=== PATIENT | female | born 1955 | race Caucasian/White ===

== ENCOUNTER 2016-12-18 07:05 | Inpatient (IN) | payer BC ==
[2016-12-18] MEDS ORDERED: Ondansetron HCl/PF 4 MG/2 ML Vial ONE (07:36)
[2016-12-18 07:56] LABS: #Lymphocytes 0.6 thou/uL (1.20-3.40); #Monocytes 0.3 thou/uL (0.11-0.59); #Neutrophils 3.2 thou/uL (1.40-6.50); %Basophils 0.4 % (0.0-1.0); %Eosinophils 0.2 % (0.0-10.0); %Lymphocytes 14.6 % (21.0-51.0); %Monocytes 7.1 % (0.0-10.0); Hematocrit 27.5 % (36.0-47.0); Mean Platelet Volume 8.7 fL (7.4-10.4); Red Blood Cell (RBC) Count 2.47 mill/uL (4.20-5.40); White Blood Cell (WBC) Count 4.1 thou/uL (4.8-10.8)
[2016-12-18 07:57] LABS: Macrocytosis SLIGHT = 6-15 cells (100X) (0-5/hpf)
[2016-12-18 08:12] LABS: Acetaminophen Less than 6.0 mcg/mL (10.0-30.0); Salicylate Less than 8.0 mg/dL (15.0-30.0)
[2016-12-18 08:16] LABS: ALT (SGPT) 26 U/L (8-55); AST (SGOT) 67 U/L (5-34); Alkaline Phosphatase 169 U/L (40-150); Anion Gap 30 mmol/L (10-20); BUN (Urea Nitrogen) 14 mg/dL (9.8-20.1); Bilirubin, Total 2.5 mg/dL (0.2-1.2); CK (CPK) 112 U/L (29-168); Calc. Creatinine Clearance 0 mL/min (70-130); Calcium 9.3 mg/dL (7.8-10.44); Carbon Dioxide 10 mmol/L (23-31); Chloride 102 mmol/L (98-107); Estimated GFR-MDRD 50; Globulin 3.5 g/dL (2.4-3.5); Lipase 158 U/L (8-78); Protein, Total 7.9 g/dL (6.0-8.3)
[2016-12-18 08:25] LABS: Troponin I 0.157 ng/mL (< 0.028)
[2016-12-18 08:37] LABS: Bilirubin Large (Negative); Glucose, Urine (Dipstick) Negative (Negative)
[2016-12-18 08:39] LABS: Blood, Urine Trace (Negative); Nitrite Negative (Negative); Protein, Urine (Dipstick) > or equal to 300 mg/dL (Neg-Trace)
[2016-12-18 08:40] LABS: Ketone, Urine > or equal to 80 mg/dL (Negative)
[2016-12-18] MEDS ORDERED: Magnesium Sulfate 2 GM/100 ML BAG ONE (08:53)
[2016-12-18] MEDS ORDERED: Lorazepam 2 MG/ML VIAL ONE (08:53)
--- NOTE | 2016-12-18 08:53 | RAD ---
PORTABLE CHEST ONE VIEW: 12/18/2016 7:38 a.m. HISTORY: Nausea, vomiting, and shortness of breath. COMPARISON: 01/20/2012 FINDINGS: The heart size is normal. The aorta is tortuous. The lungs are well expanded without focal areas o f consolidation, pneumothorax, or pleural effusions. There are postop changes in the left shoulder. IMPRESSION: No radiographic evidence of acute cardiopulmonary process. POS: OFF
[2016-12-18] MEDS ORDERED: Sodium Chloride 0.65% Nasal 44 ML BOT EA NARE PRN (10:07)
[2016-12-18] MEDS ORDERED: Ondansetron HCl/PF 4 MG/2 ML Vial IVP PRN (10:07)
[2016-12-18] MEDS ORDERED: Artificial Tears 18 DROP/0.9 ML EA EYE PRN (10:07)
[2016-12-18] MEDS ORDERED: Eucerin (Mineral Oil/Petrolatum,White) 30 gm Jar TOP PRN (10:07)
[2016-12-18] MEDS ORDERED: Bisacodyl 10 MG SUPP PR PRN ×2 (10:07)
[2016-12-18] MEDS ORDERED: Nitroglycerin 0.4 MG TAB (25 Tab Bottle) SL PRN (10:07)
[2016-12-18] MEDS ORDERED: Promethazine HCl 25 MG/ML VIAL IM/IV PRN (10:13)
[2016-12-18] MEDS ORDERED: Multivit, Adult Inj 10 ML VIAL IV SCH (10:15)
[2016-12-18] MEDS ORDERED: KCL IV SCH (11:15)
[2016-12-18] MEDS ORDERED: D5 IV SCH (11:15)
[2016-12-18] MEDS ORDERED: SODIUM BICARBONATE IV SCH (11:15)
[2016-12-18] MEDS ORDERED: 1/2 NS W IV SCH (11:15)
[2016-12-18] MEDS ORDERED: Multivitamins, Adult 10 ML in Sodium Chloride 0.9% 500 ML IV SCH ×2 (11:30)
--- NOTE | 2016-12-18 11:37 | HP ---
PRIMARY CARE PHYSICIAN: Dr. Wagner. REASON FOR ADMISSION: Intractable nausea and vomiting, metabolic acidosis, severe dehydration. HISTORY OF PRESENT ILLNESS: A 61-year-old female with a history of hypertension as well as anxiety and depression, who came to the emergency room with complaint of nausea and vomiting. At this point, patient is very weak. The patient is not able to provide any history, because of her sickness. The patient's family member is present at bedside who provided history. As per them , she has not eaten or drank anything for the last 5 days. She was having persistent nausea and vomiting. She was not able to keep anything including medication and liquid. She did not have any hematemesis. As per report, she was not having any melena or hematochezia or diarrhea. She was not having any abdominal pain. She did not have any fever or chills. The patient had similar problem in the past and the patient recently seen a primary care physician who given Zofran 4 mg. Patient started taking those medications day before yesterday. Even after taking Zocor, the patient was not feeling any improvement. She was feeling very dizzy and lightheaded. Last night, she was about to fell because of dizziness as she was not able to stand even and she was feeling more and more weak. She is passing gas. She denies any abdominal distension. She denies any UTI symptoms. She denies any headaches. The patient does report that she is taking some anxiety medicine, but she was not able to hold any medication and that is why for the last couple of days, she was not taking as well. With these presentations, she came to the emergency room. When she came to the emergency room, she was tachycardic. She was breathing heavily and she appeared clinically significantly dehydrated. Patient's family member reports that she was alcoholic in the past, but she is no longer drinking alcohol since March. The patient is also not taking any NSAIDs. The patient is also not taking any new medication. REVIEW OF SYSTEMS: The following complete review of systems was negative, unless otherwise mentioned in the HPI or below: Constitutional: Weight loss or gain, ability to conduct usual activities. Skin: Rash, itching. Eyes: Double vision, pain. ENT/Mouth: Nose bleeding, neck stiffness, pain, tenderness. Cardiovascular: Palpitations, dyspnea on exertion, orthopnea. Respiratory: Shortness of breath, wheezing, cough, hemoptysis, fever or night sweats. Gastrointestinal: Poor appetite, abdominal pain, heartburn, nausea, vomiting, constipation, or diarrhea. Genitourinary: Urgency, frequency, dysuria, nocturia. Musculoskeletal: Pain, swelling. Neurologic/Psychiatric: Anxiety, depression. Allergy/Immunologic: Skin rash, bleeding tendency. Please see my HPI for pertinent positives and negatives. All other review of systems reviewed and negative except as mentioned in the HPI. Review of system is little bit limited, because of patient's sickness. PAST MEDICAL HISTORY: History of alcoholism, but she is clean since March of this year, hypertension. PAST SURGICAL HISTORY: Left ankle surgery, D\T\C, hysteroscopy in 2011. PAST PSYCHIATRIC HISTORY: Anxiety and depression. SOCIAL HISTORY: Patient has a history of alcoholism in the past, but per family and per patient, she is sober since March of this year and she is a recovering alcoholic. She denies any illicit drug abuse. She denies any smoking. At this point, family member also has suspicious that she may be drinking alcohol behind the scene, but it is not proven. FAMILY HISTORY: No strong family history of CAD, CVA or cancer. ALLERGIES: No known drug allergy. CURRENT HOME MEDICATIONS: The patient is taking some anxiety medicine. The patient did not bring any medications, so unable to review at this point and patient is not able to tell the name of medication. EMERGENCY ROOM COURSE: Patient is given magnesium sulfate 2 gram, aspirin 162 mg, Ativan 1 mg IV push, IV fluid and Zofran 4 mg. PHYSICAL EXAMINATION: VITAL SIGNS: On arrival, blood pressure 119/92, pulse 120, respiratory rate 19 , temperature 98.0, saturation 96% on room air, weight 68 kilograms. GENERAL: Patient is currently arousable, appears dehydrated, weak and tachycardic. HEAD: Normocephalic, atraumatic. EYES: Pupils round, reactive to light. Extraocular muscles intact. ENT: Dry mucous membranes, no oral lesions, no pharyngeal erythema, no exudate. NECK: Supple. Range of motion is normal. No meningeal signs of irritation. LUNGS: Clear to auscultation without any rhonchi or rales. CARDIAC: S1, S2 regular, tachycardia, no murmur, no gallop, no rub. ABDOMEN: Soft, diffuse, discomfort noted, but no peritoneal sign, no guarding, no rigidity, no rebound, no suprapubic tenderness. BACK: Unremarkable, no CVA tenderness. EXTREMITIES: Upper extremity: Passive movement of all joints are normal. Lower extremity: No edema. Good peripheral pulsation. SKIN: No skin rash. HEMATOLOGICAL: No lymphadenopathy. PSYCHIATRIC: Anxious affect. NEUROLOGIC: Patient has tremors. The patient is not having any focal neurological deficit. SIGNIFICANT LABORATORY DATA AND IMAGING: EKG showing sinus tachycardia, nonspecific ST-T changes. Chest x-ray based on my review, no acute cardiopulmonary process. CBC: WBC 4.1, hemoglobin 8.9, MCV 111, platelets 132. BMP: Sodium 138, potassium 3.6, chloride 102, carbon dioxide 10, anion gap 30, BUN 14, creatinine 1.10, glucose 136, calcium 9.3, magnesium 1.0. LFT: Bilirubin 2.5, AST 67, ALT 26, alkaline phosphatase 169, albumin 4.4, lipase 158, CK-MB 7.2, troponin I 0.157. Urinalysis showing proteinuria, ketonuria, nitrite negative, leukocyte esterase negative. Salicylate level less than 8. Acetaminophen level less than 6. Alcohol level less than 10. ASSESSMENT AND PLAN: 1. Intractable nausea and vomiting, etiology uncertain, but underlying gastritis needs to be excluded. At this point, I will treat her symptomatically with Zofran, Phenergan, and Protonix. If the patient's symptoms does not improve by tomorrow, then we will consider Gastroenterology evaluation for endoscopic evaluation. 2. Severe dehydration. Patient clinically appears dehydrated secondary to not able to eat anything for the last 4-5 days, because of nausea and vomiting. The patient will be given IV fluid along with bicarbonate and potassium and we will monitor electrolytes. 3. Starvation ketoacidosis. We will check serum ketones. This patient has elevated anion gap acidosis. Most likely because of that, the patient will be given dextrose solution, so her ketones can get better and we will repeat BMP tomorrow. 4. Benzodiazepines/alcohol withdrawal. It is unclear at this point, but patient has tremor. She is tachycardic. She is hypertensive. She may be withdrawing from benzos versus alcohol if she is still drinking. At this point , we will continue with Ativan 1 mg q.4 hours p.r.n. IV and we will watch on telemetry floor. 5. Elevated anion gap metabolic acidosis. We will check a lactic acid. We will check serum ketones. The patient will be given dextrose half-normal saline with KCl along with bicarbonate and we will monitor BMP. 6. Hypomagnesemia. Patient has received magnesium 2 grams in the emergency room. We will recheck labs later on today and if needed, we will give her more magnesium. We will also check phosphorus at that time. 7. Elevated lipase, along with abnormal LFT. We will check ultrasound abdomen in the right upper quadrant to rule out any gallbladder pathology or pancreatic pathology. We will repeat lipase again tomorrow. Most likely, this is related with her previous alcohol abuse history as well as nausea and vomiting. 8. Macrocytic anemia. I will give her multivitamin IV daily and when patient able to take p.o., at that time, we will resume folic acid, vitamin B12, and thiamine. We will check B12 and folate level later on today. 9. Elevated troponin. We will do 3 sets of cardiac enzymes to rule out acute coronary syndrome. Most likely, this is demand ischemia. 10. Proteinuria, ketonuria, likely due to starvation ketoacidosis. 11. Deep venous thrombosis prophylaxis. Lovenox 40 mg subcu daily. 12. Gastrointestinal prophylaxis. Protonix 40 mg IV daily. 13. CODE STATUS: The patient is FULL CODE. Patient does not have any surrogate decision maker. Disposition and plan based on clinical course. We are expecting patient's stay in hospital more than 2 midnights. Plan of care discussed with the patient's family member at bedside in the emergency room. TIM
[2016-12-18 12:20] VITALS: BMI 29.4
[2016-12-18 13:30] LABS: Troponin I 0.131 ng/mL (< 0.028)
[2016-12-18 13:57] LABS: Troponin I 0.134 ng/mL (< 0.028)
--- NOTE | 2016-12-18 15:12 | ULT ---
RIGHT UPPER QUADRANT ULTRASOUND 12/18/2016 HISTORY: Abnormal liver function tests. FINDINGS: The liver is enlarged measuring 20 cm in craniocaudal dimensions. The liver also demonstrates incre ased echogenicity likely related to diffuse fatty infiltrates. This limits evaluation of the hepati c parenchyma, but no focal hepatic mass is visualized. There are shadowing echogenic foci seen within the gallbladder lumen consistent with gallbladder elvia culi. There is no gallbladder wall thickening or pericholecystic fluid. The common duct measures 0. 7 cm in diameter which is within normal limits for the patient's age. No intrahepatic biliary ducta l dilatation is seen. The visualized portions of the IVC, visualized portions of the pancreas, and right kidney demonstrat e a normal sonographic appearance. The right kidney measures 11.6 cm in length. IMPRESSION: 1. Hepatomegaly with diffuse fatty infiltration of the liver. 2. Cholelithiasis. POS: [facility]
[2016-12-18 15:38] LABS: Anion Gap 29 mmol/L (10-20); BUN (Urea Nitrogen) 14 mg/dL (9.8-20.1); Calc. Creatinine Clearance 74 mL/min (70-130); Calcium 8.9 mg/dL (7.8-10.44); Chloride 108 mmol/L (98-107); Estimated GFR-MDRD 59; Magnesium 1.5 mg/dL (1.6-2.6)
[2016-12-18 15:45] LABS: Carbon Dioxide 9 mmol/L (23-31); Phosphorus Less than 1.0 mg/dL (2.3-4.7); Troponin I 0.112 ng/mL (< 0.028)
[2016-12-18] MEDS ORDERED: Potassium Chloride 20 MEQ in Lactated Ringer's 1,000 ML IV SCH (16:00)
[2016-12-18] MEDS ORDERED: Magnesium Sulfate 4 GM in Sodium Chloride 0.9% 250 ML 250 ML IVPB SCH (17:00)
[2016-12-18] MEDS ORDERED: Potassium Phosphate 30 MMOL in Sodium Chloride 0.9% 500 ML IVPB SCH (17:00)
[2016-12-18] MEDS ORDERED: Sodium Bicarb 50 MEQ/50 ML Abboject 8.4% SYRINGE IVP SCH (17:45)
[2016-12-18] MEDS: SODIUM BICARBONATE IV SCH (17:56)
[2016-12-18] MEDS: [UNRECOGNIZED DRUG - OTHER] IV SCH (17:56)
[2016-12-18] MEDS: POTASSIUM CHLORIDE IV SCH (17:56)
[2016-12-18 18:36] LABS: Troponin I 0.105 ng/mL (< 0.028)
[2016-12-18] MEDS ORDERED: Sodium Bicarb 50 MEQ/50 ML VIAL IVP SCH (18:45)
[2016-12-18 19:01] LABS: Oxyhemoglobin 94.9 % (94.0-97.0); Sodium 141 mmol/L (135-148)
[2016-12-18 20:15] LABS: Mode RA; Modified Allen's Test POSITIVE; Vent NO
[2016-12-18 21:23] LABS: Anion Gap 27 mmol/L (10-20); BUN (Urea Nitrogen) 14 mg/dL (9.8-20.1); Calc. Creatinine Clearance 81 mL/min (70-130); Calcium 8.5 mg/dL (7.8-10.44); Carbon Dioxide 11 mmol/L (23-31); Chloride 108 mmol/L (98-107); Estimated GFR-MDRD 66; Magnesium 1.8 mg/dL (1.6-2.6)
[2016-12-18 21:27] LABS: Phosphorus Less than 1.0 mg/dL (2.3-4.7)
[2016-12-18] MEDS: Pantoprazole 40 MG VIAL IVP SCH (21:59)
[2016-12-18] MEDS: Lorazepam 2 MG/ML VIAL SLOW IVP PRN (21:59)
[2016-12-19] MEDS: [UNRECOGNIZED DRUG - OTHER] IV SCH ×6 (02:43→23:58)
[2016-12-19] MEDS: SODIUM BICARBONATE IV SCH ×6 (02:43→23:58)
[2016-12-19] MEDS: POTASSIUM CHLORIDE IV SCH ×6 (02:43→23:58)
[2016-12-19 06:06] LABS: #Lymphocytes 0.5 thou/uL (1.20-3.40); #Monocytes 0.3 thou/uL (0.11-0.59); #Neutrophils 1.7 thou/uL (1.40-6.50); %Basophils 0.4 % (0.0-1.0); %Eosinophils 1.3 % (0.0-10.0); %Lymphocytes 20.9 % (21.0-51.0); %Monocytes 9.8 % (0.0-10.0); Hematocrit 20.1 % (36.0-47.0); Mean Platelet Volume 8.7 fL (7.4-10.4); Red Blood Cell (RBC) Count 1.81 mill/uL (4.20-5.40); White Blood Cell (WBC) Count 2.6 thou/uL (4.8-10.8)
[2016-12-19 06:14] LABS: ALT (SGPT) 19 U/L (8-55); AST (SGOT) 55 U/L (5-34); Alkaline Phosphatase 128 U/L (40-150); Anion Gap 16 mmol/L (10-20); BUN (Urea Nitrogen) 12 mg/dL (9.8-20.1); Bilirubin, Total 1.6 mg/dL (0.2-1.2); Calc. Creatinine Clearance 89 mL/min (70-130); Carbon Dioxide 21 mmol/L (23-31); Chloride 108 mmol/L (98-107); Estimated GFR-MDRD 74; Globulin 2.5 g/dL (2.4-3.5); Magnesium 1.9 mg/dL (1.6-2.6); Phosphorus Less than 1.0 mg/dL (2.3-4.7); Protein, Total 5.9 g/dL (6.0-8.3)
[2016-12-19] MEDS ORDERED: Potassium Phosphate 15 MMOL in Sodium Chloride 0.9% 250 ML 250 ML IVPB SCH (07:00)
--- NOTE | 2016-12-19 09:32 | PDOC.PN ---
- Subjective Encounter Start Date: 12/19/16 Encounter Start Time: 07:00 -: old records requested/rev pt's family reports that pt is drinking vodka at home, they found empty bottles of vodka, no fever, feels anxious, no nausea or vomiting, no melena - Objective Resuscitation Status: Resuscitation Status FULL:Full Resuscitation MAR Reviewed: Yes Vital Signs & Weight: Vital Signs (12 hours) Temp Pulse Pulse Resp BP BP Pulse Ox 12/19/16 09:17 99.0 F 118 H 24 H 115/59 L 12/19/16 07:20 99.0 F 129 H 24 H 138/71 92 L 12/19/16 04:00 122 H 18 138/60 94 L 12/19/16 00:00 99.1 F 118 H 18 136/75 96 Weight Weight 171 lb 5 oz I&O: 12/18/16 12/19/16 12/20/16 06:59 06:59 06:59 Intake Total 2920 0 Output Total 500 Balance 2420 0 Result Diagrams: 12/19/16 05:13 12/19/16 05:13 EKG Reviewed by me: Yes (sinus tachycardia) Phys Exam - Physical Examination Constitutional: NAD HEENT: PERRLA, moist MMs, sclera anicteric Neck: no JVD, supple Respiratory: no wheezing, no rales, no rhonchi Cardiovascular: RRR, no significant murmur, no rub tachycardia Gastrointestinal: soft, non-tender, no distention, positive bowel sounds Musculoskeletal: no edema, pulses present wrist swelling Neurological: non-focal, normal sensation, moves all 4 limbs Lymphatic: no nodes Psychiatric: normal affect, A&O x 3 Skin: no rash, normal turgor Dx/Plan (1) Acute metabolic encephalopathy Code(s): G93.41 - METABOLIC ENCEPHALOPATHY Status: Acute (2) Alcohol abuse Code(s): F10.10 - ALCOHOL ABUSE, UNCOMPLICATED Status: Acute (3) Dehydration Code(s): E86.0 - DEHYDRATION Status: Acute (4) Demand ischemia of myocardium Code(s): I24.8 - OTHER FORMS OF ACUTE ISCHEMIC HEART DISEASE Status: Acute (5) Hypokalemia Code(s): E87.6 - HYPOKALEMIA Status: Acute (6) Hypomagnesemia Code(s): E83.42 - HYPOMAGNESEMIA Status: Acute (7) Hypophosphatemia Code(s): E83.39 - OTHER DISORDERS OF PHOSPHORUS METABOLISM Status: Acute (8) Intractable nausea and vomiting Code(s): R11.2 - NAUSEA WITH VOMITING, UNSPECIFIED Status: Acute (9) Ketosis Code(s): E88.89 - OTHER SPECIFIED METABOLIC DISORDERS Status: Acute (10) Macrocytic anemia Code(s): D53.9 - NUTRITIONAL ANEMIA, UNSPECIFIED Status: Acute (11) Metabolic acidosis, increased anion gap (IAG) Code(s): E87.2 - ACIDOSIS Status: Acute (12) Sinus tachycardia Code(s): R00.0 - TACHYCARDIA, UNSPECIFIED Status: Acute (13) Thrombocytopenia Code(s): D69.6 - THROMBOCYTOPENIA, UNSPECIFIED Status: Acute - Plan cont current plan of care, plan discussed w/ family * will check occult blood., if positive then will call GI * continue protonix * transfuse 1 unit PRBC * continue bicarb drip at 125 ml per hour * replace potassium phosphate and check later today * counselled to quit alcohol * discussed with family bedside * will get echo for abnormal troponin * wrist xray today * repeat labs tomorrow * pt's clinical picture is c/w alcohol abuse and now possible withdrawl * add metoprolol * add folic acid, thiamin, B12, theragran * check uric acid and crp Review of Systems - Review of Systems Constitutional: negative: Fever, Chills, Sweats, Weakness, Malaise, Other Respiratory: negative: Cough, Dry, Shortness of Breath, Hemoptysis, SOB with Excertion, Pleuritic Pain, Sputum, Wheezing Cardiovascular: negative: Chest Pain, Palpitations, Orthopnea, Paroxysmal Noc. Dyspnea, Edema, Light Headedness, Other Gastrointestinal: negative: Nausea, Vomiting, Abdominal Pain, Diarrhea, Constipation, Melena, Hematochezia, Other Genitourinary: negative: Dysuria, Frequency, Incontinence, Hematuria, Retention , Other Musculoskeletal: Hand Pain. negative: Neck Pain, Shoulder Pain, Arm Pain, Back Pain, Leg Pain, Foot Pain, Other - Medications/Allergies Allergies/Adverse Reactions: Allergies Allergy/AdvReac Type Severity Reaction Status Date / Time No Known Allergies Allergy Unverified 12/18/16 11:00 Medications: Current Medications Acetaminophen (Tylenol) 650 mg PO Q4H PRN PRN Reason: Headache/Fever or Pain Artificial Tears (Tears Naturale) 0 drop EA EYE PRN PRN PRN Reason: Dry Eyes Bisacodyl (Dulcolax) 10 mg [place] DAILYPRN PRN PRN Reason: Constipation Cyanocobalamin (Vitamin B-12) 1,000 mcg PO DAILY [facility] Enoxaparin Sodium (Lovenox) 40 mg SC 0900 [facility] Ferrous Sulfate (Feosol) 325 mg PO QAM-WM [facility] Folic Acid (Folvite) 1 mg PO DAILY [facility] Hydralazine HCl (Apresoline) 10 mg SLOW IVP Q4H PRN PRN Reason: Systolic BP > 180 Potassium Chloride 20 meq/Sodium Bicarbonate 100 meq/Dextrose/Sodium Chloride 1 ,110 mls @ 200 mls/hr IV .Q5H33M [facility] Last Admin: 12/19/16 04:10 Dose: Not Given Potassium Phosphate 15 mmol/ (Sodium Chloride) 255 mls @ 63.75 mls/hr IVPB NOW [facility] Stop: 12/19/16 10:59 Last Admin: 12/19/16 07:40 Dose: 255 mls Iron/Minerals/Multivitamins (Theragran M) 1 tab PO DAILY [facility] Lorazepam (Ativan) 1 mg SLOW IVP Q4H PRN PRN Reason: Anxiety/Agitation Last Admin: 12/18/16 21:59 Dose: 1 mg Metoprolol Tartrate (Lopressor) 25 mg PO BID [facility] Mineral Oil/White Petrolatum (Eucerin Cream) 0 gm TOP BIDPRN PRN PRN Reason: Dry Skin Nitroglycerin (Nitrostat) 0.4 mg SL Q5MIN PRN PRN Reason: Chest Pain Ondansetron HCl (Zofran) 4 mg IVP Q6H PRN PRN Reason: Nausea/Vomiting Last Admin: 12/19/16 06:31 Dose: 4 mg Pantoprazole Sodium (Protonix) 40 mg IVP Q12HR [facility] Last Admin: 12/18/16 21:59 Dose: 40 mg Promethazine HCl (Phenergan) 25 mg IM/IV Q6H PRN PRN Reason: Nausea/Vomiting Sodium Chloride ([place] Nasal [place] 0.65%) 0 ml EA NARE QIDPRN PRN PRN Reason: Nasal Congestion Thiamine HCl (Thiamine) 100 mg PO DAILY [facility]
[2016-12-19] MEDS: Multivitamin W/ Minerals 1 TAB PO SCH (09:55)
[2016-12-19] MEDS: Ferrous Sulfate 325 MG TAB PO SCH (09:55)
[2016-12-19] MEDS: Acetaminophen 325 MG TAB PO PRN ×2 (09:55→21:25)
[2016-12-19] MEDS: Metoprolol Tartrate 25 MG TAB PO SCH ×2 (09:55→21:26)
[2016-12-19] MEDS: Folic Acid 1 MG TAB PO SCH (09:55)
[2016-12-19] MEDS: Enoxaparin Sodium 40 MG/0.4 ML SYRINGE SC SCH ×2 (09:55→10:02)
[2016-12-19] MEDS: Cyanocobalamin (Vitamin B-12) 1,000 MCG TAB PO SCH (09:55)
[2016-12-19] MEDS: Pantoprazole 40 MG VIAL IVP SCH ×2 (09:55→21:27)
--- NOTE | 2016-12-19 12:01 | RAD ---
THREE VIEWS LEFT WRIST: HISTORY: Swelling, pain, fall. FINDINGS: AP, lateral, and oblique views of the left wrist are obtained. Three views left wrist demonstrate no definite evidence of left wrist fractures, subluxations, or dada ny lesions. IMPRESSION: Normal 3 views left wrist. POS: [facility]
[2016-12-19 14:14] LABS: Amphetamine Not Detected (NotDetected); Methadone Not Detected (NotDetected); Methamphetamine Not Detected (NotDetected)
[2016-12-19 14:45] LABS: Hematocrit 21.3 % (36.0-47.0)
[2016-12-19 15:06] LABS: Uric Acid 9.6 mg/dL (2.6-6.0)
[2016-12-19 15:18] LABS: Phosphorus Less than 1.0 mg/dL (2.3-4.7)
[2016-12-19] MEDS ORDERED: Potassium Phosphate 30 MMOL in Sodium Chloride 0.9% 500 ML IVPB SCH (16:00)
[2016-12-19] MEDS: Lorazepam 2 MG/ML VIAL SLOW IVP PRN ×2 (16:18→21:28)
[2016-12-19] MEDS: Potassium Chloride 20 MEQ TAB PO SCH ×2 (16:18→21:25)
[2016-12-20 07:29] LABS: #Eosinphils 0.1 thou/uL (0.0-0.7); #Lymphocytes 0.8 thou/uL (1.20-3.40); #Monocytes 0.4 thou/uL (0.11-0.59); #Neutrophils 1.3 thou/uL (1.40-6.50); %Basophils 1.8 % (0.0-1.0); %Eosinophils 2.4 % (0.0-10.0); %Lymphocytes 30.7 % (21.0-51.0); %Monocytes 14.1 % (0.0-10.0); Hematocrit 20.5 % (36.0-47.0); Mean Platelet Volume 9.5 fL (7.4-10.4); Red Blood Cell (RBC) Count 1.89 mill/uL (4.20-5.40); White Blood Cell (WBC) Count 2.5 thou/uL (4.8-10.8)
[2016-12-20 07:46] LABS: Anisocytosis MODERATE=16-30 cells (100X) (0-5/hpf); Hypochromia SLIGHT = 6-15 cells (100X) (0-5/hpf); Polychromasia SLIGHT = 2-3 cells (100X) (0-2/hpf)
[2016-12-20 07:54] LABS: ALT (SGPT) 15 U/L (8-55); AST (SGOT) 41 U/L (5-34); Alkaline Phosphatase 108 U/L (40-150); Anion Gap 13 mmol/L (10-20); BUN (Urea Nitrogen) 7 mg/dL (9.8-20.1); Bilirubin, Total 1.1 mg/dL (0.2-1.2); Calc. Creatinine Clearance 110 mL/min (70-130); Calcium 7.4 mg/dL (7.8-10.44); Carbon Dioxide 25 mmol/L (23-31); Chloride 109 mmol/L (98-107); Estimated GFR-MDRD Greater than 90; Globulin 2.2 g/dL (2.4-3.5); Phosphorus 1.1 mg/dL (2.3-4.7); Protein, Total 5.1 g/dL (6.0-8.3)
[2016-12-20] MEDS: Pantoprazole 40 MG VIAL IVP SCH ×2 (09:01→22:05)
[2016-12-20] MEDS: cefTRIAXone\\ROCEPHIN 1 GM in Sodium Chloride 0.9% 100 ML IVPB SCH (09:01)
[2016-12-20] MEDS: Cyanocobalamin (Vitamin B-12) 1,000 MCG TAB PO SCH (09:02)
[2016-12-20] MEDS: Multivitamin W/ Minerals 1 TAB PO SCH (09:02)
[2016-12-20] MEDS: Ferrous Sulfate 325 MG TAB PO SCH (09:02)
[2016-12-20] MEDS: Metoprolol Tartrate 25 MG TAB PO SCH ×2 (09:03→22:04)
[2016-12-20] MEDS: Folic Acid 1 MG TAB PO SCH (09:03)
[2016-12-20] MEDS: Enoxaparin Sodium 40 MG/0.4 ML SYRINGE SC SCH (09:05)
[2016-12-20] MEDS ORDERED: D5 NS w/ 40 mEq KCl 1,000 ML IV SCH (09:15)
[2016-12-20] MEDS ORDERED: Magnesium Sulfate 4 GM, Admixture Fee 1 EACH in Sodium Chloride 0.9% 250 ML 250 ML IVPB SCH (09:15)
[2016-12-20] MEDS ORDERED: Potassium Phosphate 30 MMOL, Admixture Fee 1 EACH in Sodium Chloride 0.9% 500 ML IVPB SCH (09:15)
--- NOTE | 2016-12-20 10:41 | PDOC.PN ---
- Subjective Encounter Start Date: 12/20/16 Encounter Start Time: 07:10 today she has abnormal electrolytes, her H & H is low, no bleeding from any site , she does prefer to stay in our hospital Patient seen and examined. No new complaints. No overnight events - Objective Resuscitation Status: Resuscitation Status FULL:Full Resuscitation MAR Reviewed: Yes Vital Signs & Weight: Vital Signs (12 hours) Temp Pulse Resp BP BP Pulse Ox 12/20/16 04:00 97.5 F L 95 18 119/64 119/64 95 12/20/16 00:00 98.7 F 98 18 115/82 115/82 92 L Weight Weight 171 lb 5 oz I&O: 12/19/16 12/20/16 12/21/16 06:59 06:59 06:59 Intake Total 2920 5720 Output Total 500 650 Balance 2420 5070 Result Diagrams: 12/20/16 07:14 12/20/16 07:14 EKG Reviewed by me: Yes (nsr) Phys Exam - Physical Examination Constitutional: NAD HEENT: PERRLA, moist MMs, sclera anicteric Neck: no JVD, supple Respiratory: no wheezing, no rales, no rhonchi Cardiovascular: RRR, no significant murmur, no rub Gastrointestinal: soft, non-tender, no distention, positive bowel sounds Musculoskeletal: no edema, pulses present Neurological: non-focal, normal sensation Lymphatic: no nodes Psychiatric: normal affect Skin: no rash, normal turgor Dx/Plan (1) Acute metabolic encephalopathy Code(s): G93.41 - METABOLIC ENCEPHALOPATHY Status: Acute (2) Alcohol abuse Code(s): F10.10 - ALCOHOL ABUSE, UNCOMPLICATED Status: Acute (3) Dehydration Code(s): E86.0 - DEHYDRATION Status: Acute (4) Demand ischemia of myocardium Code(s): I24.8 - OTHER FORMS OF ACUTE ISCHEMIC HEART DISEASE Status: Acute (5) Hypokalemia Code(s): E87.6 - HYPOKALEMIA Status: Acute (6) Hypomagnesemia Code(s): E83.42 - HYPOMAGNESEMIA Status: Acute (7) Hypophosphatemia Code(s): E83.39 - OTHER DISORDERS OF PHOSPHORUS METABOLISM Status: Acute (8) Intractable nausea and vomiting Code(s): R11.2 - NAUSEA WITH VOMITING, UNSPECIFIED Status: Acute (9) Ketosis Code(s): E88.89 - OTHER SPECIFIED METABOLIC DISORDERS Status: Acute (10) Macrocytic anemia Code(s): D53.9 - NUTRITIONAL ANEMIA, UNSPECIFIED Status: Acute (11) Metabolic acidosis, increased anion gap (IAG) Code(s): E87.2 - ACIDOSIS Status: Acute (12) Sinus tachycardia Code(s): R00.0 - TACHYCARDIA, UNSPECIFIED Status: Acute (13) Thrombocytopenia Code(s): D69.6 - THROMBOCYTOPENIA, UNSPECIFIED Status: Acute - Plan cont current plan of care, plan discussed w/ family, continue antibiotics, PT/OT * DC bicarb drip * continue dex with ns with kcl at 125 ml per hour * transfuse 1 unit prbc * replace magnesium sulfate * replace potassium phosphate * repeat labs at 6 pm and correct abnormality again if needed. * start PT/OT and discharge planning Review of Systems - Review of Systems ENT: negative: Ear Pain, Ear Discharge, Nose Pain, Nose Discharge, Nose Congestion, Mouth Pain, Mouth Swelling, Throat Pain, Throat Swelling, Other Respiratory: negative: Cough, Dry, Shortness of Breath, Hemoptysis, SOB with Excertion, Pleuritic Pain, Sputum, Wheezing Cardiovascular: negative: Chest Pain, Palpitations, Orthopnea, Paroxysmal Noc. Dyspnea, Edema, Light Headedness, Other Gastrointestinal: negative: Nausea, Vomiting, Abdominal Pain, Diarrhea, Constipation, Melena, Hematochezia, Other Genitourinary: negative: Dysuria, Frequency, Incontinence, Hematuria, Retention , Other Musculoskeletal: negative: Neck Pain, Shoulder Pain, Arm Pain, Back Pain, Hand Pain, Leg Pain, Foot Pain, Other - Medications/Allergies Allergies/Adverse Reactions: Allergies Allergy/AdvReac Type Severity Reaction Status Date / Time No Known Allergies Allergy Unverified 12/18/16 11:00 Medications: Current Medications Acetaminophen (Tylenol) 650 mg PO Q4H PRN PRN Reason: Headache/Fever or Pain Last Admin: 12/19/16 21:25 Dose: 650 mg Artificial Tears (Tears Naturale) 0 drop EA EYE PRN PRN PRN Reason: Dry Eyes Bisacodyl (Dulcolax) 10 mg [place] DAILYPRN PRN PRN Reason: Constipation Cyanocobalamin (Vitamin B-12) 1,000 mcg PO DAILY [facility] Last Admin: 12/20/16 09:02 Dose: 1,000 mcg Enoxaparin Sodium (Lovenox) 40 mg SC 0900 [facility] Last Admin: 12/20/16 09:05 Dose: 40 mg Ferrous Sulfate (Feosol) 325 mg PO QAM-WM [facility] Last Admin: 12/20/16 09:02 Dose: 325 mg Folic Acid (Folvite) 1 mg PO DAILY [facility] Last Admin: 12/20/16 09:03 Dose: 1 mg Hydralazine HCl (Apresoline) 10 mg SLOW IVP Q4H PRN PRN Reason: Systolic BP > 180 Ceftriaxone Sodium 1 gm/ (Sodium Chloride) 100 mls @ 200 mls/hr IVPB 0700 [facility] Last Admin: 12/20/16 09:01 Dose: 100 mls Potassium Chloride/Dextrose/Sod Cl (D5 Ns W/ 40 Meq Kcl) 1,000 mls @ 100 mls/ hr IV .Q10H [facility] Last Admin: 12/20/16 10:12 Dose: 1,000 mls Magnesium Sulfate 4 gm/Miscellaneous Medication 1 each/ Sodium Chloride 258 mls @ 86 mls/hr IVPB ONE [facility] Stop: 12/20/16 12:00 Potassium Phosphate 30 mmol/Miscellaneous Medication 1 each/ Sodium Chloride 510 mls @ 83.3 mls/hr IVPB ONE [facility] Stop: 12/20/16 14:00 Last Admin: 12/20/16 10:15 Dose: 510 mls Iron/Minerals/Multivitamins (Theragran M) 1 tab PO DAILY [facility] Last Admin: 12/20/16 09:02 Dose: 1 tab Lorazepam (Ativan) 1 mg SLOW IVP Q4H PRN PRN Reason: Anxiety/Agitation Last Admin: 12/19/16 21:28 Dose: 1 mg Metoprolol Tartrate (Lopressor) 25 mg PO BID [facility] Last Admin: 12/20/16 09:03 Dose: 25 mg Mineral Oil/White Petrolatum (Eucerin Cream) 0 gm TOP BIDPRN PRN PRN Reason: Dry Skin Nitroglycerin (Nitrostat) 0.4 mg SL Q5MIN PRN PRN Reason: Chest Pain Ondansetron HCl (Zofran) 4 mg IVP Q6H PRN PRN Reason: Nausea/Vomiting Last Admin: 12/19/16 06:31 Dose: 4 mg Pantoprazole Sodium (Protonix) 40 mg IVP Q12HR [facility] Last Admin: 12/20/16 09:01 Dose: 40 mg Promethazine HCl (Phenergan) 25 mg IM/IV Q6H PRN PRN Reason: Nausea/Vomiting Sodium Chloride ([place] Nasal [place] 0.65%) 0 ml EA NARE QIDPRN PRN PRN Reason: Nasal Congestion Sodium Chloride (Flush - Normal Saline) 10 ml IVF Q12HR [facility] Sodium Chloride (Flush - Normal Saline) 10 ml IVF PRN PRN PRN Reason: Saline Flush Thiamine HCl (Thiamine) 100 mg PO DAILY [facility] Last Admin: 12/20/16 09:02 Dose: 100 mg
[2016-12-20] MEDS: D5 NS w/ 40 mEq KCl 1,000 ML IV SCH (11:01)
[2016-12-20 18:35] LABS: Hematocrit 22.6 % (36.0-47.0)
[2016-12-20 19:12] LABS: Magnesium 1.8 mg/dL (1.6-2.6); Phosphorus 3.3 mg/dL (2.3-4.7)
[2016-12-21] MEDS: cefTRIAXone\\ROCEPHIN 1 GM in Sodium Chloride 0.9% 100 ML IVPB SCH (06:49)
[2016-12-21] MEDS: D5 NS w/ 40 mEq KCl 1,000 ML IV SCH (06:50)
[2016-12-21] MEDS: Multivitamin W/ Minerals 1 TAB PO SCH (08:53)
[2016-12-21] MEDS: Magnesium Oxide 400 MG TAB PO SCH (08:53)
[2016-12-21] MEDS: Ferrous Sulfate 325 MG TAB PO SCH (08:54)
[2016-12-21] MEDS: Metoprolol Tartrate 25 MG TAB PO SCH ×2 (08:54→21:56)
[2016-12-21] MEDS: Potassium Chloride 10 MEQ TAB PO SCH ×2 (08:54→17:52)
[2016-12-21] MEDS: Folic Acid 1 MG TAB PO SCH (08:54)
[2016-12-21] MEDS: Cyanocobalamin (Vitamin B-12) 1,000 MCG TAB PO SCH (08:54)
[2016-12-21] MEDS: Enoxaparin Sodium 40 MG/0.4 ML SYRINGE SC SCH (08:59)
[2016-12-21] MEDS: K-Phos Neutral 250 MG TAB PO SCH ×2 (09:12→17:53)
--- NOTE | 2016-12-21 15:36 | PDOC.PN ---
- Subjective Encounter Start Date: 12/21/16 Encounter Start Time: 09:00 Patient seen and examined. No new complaints. No overnight events - Objective Resuscitation Status: Resuscitation Status FULL:Full Resuscitation MAR Reviewed: Yes Vital Signs & Weight: Vital Signs (12 hours) Temp Pulse Resp BP BP Pulse Ox 12/21/16 10:51 98.5 F 90 16 95 12/21/16 10:15 98.5 F 90 16 115/54 L 95 12/21/16 08:00 99.6 F 99 16 160/85 H 160/85 H 95 12/21/16 04:00 99.2 F 96 18 133/74 92 L Weight Admit Weight 171 lb 5 oz Weight 174 lb 12.8 oz I&O: 12/20/16 12/21/16 12/22/16 06:59 06:59 06:59 Intake Total 5720 3392 360 Output Total 650 1500 Balance 5070 1892 360 Result Diagrams: 12/20/16 18:20 12/20/16 18:20 Phys Exam - Physical Examination Constitutional: NAD HEENT: PERRLA, moist MMs, sclera anicteric Neck: no JVD, supple Respiratory: no wheezing, no rales, no rhonchi Cardiovascular: RRR, no significant murmur, no rub Gastrointestinal: soft, non-tender, no distention, positive bowel sounds Musculoskeletal: no edema, pulses present Neurological: non-focal, normal sensation, moves all 4 limbs Psychiatric: normal affect, A&O x 3 Skin: no rash, normal turgor Dx/Plan (1) Acute metabolic encephalopathy Code(s): G93.41 - METABOLIC ENCEPHALOPATHY Status: Resolved (2) Alcohol abuse Code(s): F10.10 - ALCOHOL ABUSE, UNCOMPLICATED Status: Chronic (3) Dehydration Code(s): E86.0 - DEHYDRATION Status: Resolved (4) Demand ischemia of myocardium Code(s): I24.8 - OTHER FORMS OF ACUTE ISCHEMIC HEART DISEASE Status: Acute (5) Hypokalemia Code(s): E87.6 - HYPOKALEMIA Status: Resolved (6) Hypomagnesemia Code(s): E83.42 - HYPOMAGNESEMIA Status: Resolved (7) Hypophosphatemia Code(s): E83.39 - OTHER DISORDERS OF PHOSPHORUS METABOLISM Status: Resolved (8) Intractable nausea and vomiting Code(s): R11.2 - NAUSEA WITH VOMITING, UNSPECIFIED Status: Resolved (9) Ketosis Code(s): E88.89 - OTHER SPECIFIED METABOLIC DISORDERS Status: Resolved (10) Macrocytic anemia Code(s): D53.9 - NUTRITIONAL ANEMIA, UNSPECIFIED Status: Chronic (11) Metabolic acidosis, increased anion gap (IAG) Code(s): E87.2 - ACIDOSIS Status: Resolved (12) Sinus tachycardia Code(s): R00.0 - TACHYCARDIA, UNSPECIFIED Status: Resolved (13) Thrombocytopenia Code(s): D69.6 - THROMBOCYTOPENIA, UNSPECIFIED Status: Chronic (14) UTI (urinary tract infection) Status: Acute - Plan cont current plan of care, plan discussed w/ family * dc tele * transfer to medical * dc ivf * replace oral potassium, magnesium and kphos * continue PT * family prefers [facility] but pt is not wanted to go to [facility] * medication reviewed as below * symptomatic treatment. * stable for discharge tomorrow on oral cipro and other meds as per current. Review of Systems - Review of Systems ENT: negative: Ear Pain, Ear Discharge, Nose Pain, Nose Discharge, Nose Congestion, Mouth Pain, Mouth Swelling, Throat Pain, Throat Swelling, Other Respiratory: negative: Cough, Dry, Shortness of Breath, Hemoptysis, SOB with Excertion, Pleuritic Pain, Sputum, Wheezing Cardiovascular: negative: Chest Pain, Palpitations, Orthopnea, Paroxysmal Noc. Dyspnea, Edema, Light Headedness, Other Gastrointestinal: negative: Nausea, Vomiting, Abdominal Pain, Diarrhea, Constipation, Melena, Hematochezia, Other Genitourinary: negative: Dysuria, Frequency, Incontinence, Hematuria, Retention , Other Musculoskeletal: negative: Neck Pain, Shoulder Pain, Arm Pain, Back Pain, Hand Pain, Leg Pain, Foot Pain, Other - Medications/Allergies Allergies/Adverse Reactions: Allergies Allergy/AdvReac Type Severity Reaction Status Date / Time No Known Allergies Allergy Unverified 12/18/16 11:00 Medications: Current Medications Acetaminophen (Tylenol) 650 mg PO Q4H PRN PRN Reason: Headache/Fever or Pain Last Admin: 12/19/16 21:25 Dose: 650 mg Artificial Tears (Tears Naturale) 0 drop EA EYE PRN PRN PRN Reason: Dry Eyes Bisacodyl (Dulcolax) 10 mg PA DAILYPRN PRN PRN Reason: Constipation Cyanocobalamin (Vitamin B-12) 1,000 mcg PO DAILY [facility] Last Admin: 12/21/16 08:54 Dose: 1,000 mcg Enoxaparin Sodium (Lovenox) 40 mg SC 0900 [facility] Last Admin: 12/21/16 08:59 Dose: 40 mg Ferrous Sulfate (Feosol) 325 mg PO QAM-[facility] Last Admin: 12/21/16 08:54 Dose: 325 mg Folic Acid (Folvite) 1 mg PO DAILY [facility] Last Admin: 12/21/16 08:54 Dose: 1 mg Hydralazine HCl (Apresoline) 10 mg SLOW IVP Q4H PRN PRN Reason: Systolic BP > 180 Ceftriaxone Sodium 1 gm/ (Sodium Chloride) 100 mls @ 200 mls/hr IVPB 0700 [facility] Last Admin: 12/21/16 06:49 Dose: 100 mls Iron/Minerals/Multivitamins (Theragran M) 1 tab PO DAILY [facility] Last Admin: 12/21/16 08:53 Dose: 1 tab Lorazepam (Ativan) 1 mg SLOW IVP Q4H PRN PRN Reason: Anxiety/Agitation Last Admin: 12/19/16 21:28 Dose: 1 mg Magnesium Oxide (Magnesium Oxide) 400 mg PO DAILY [facility] Last Admin: 12/21/16 08:53 Dose: 400 mg Metoprolol Tartrate (Lopressor) 25 mg PO BID [facility] Last Admin: 12/21/16 08:54 Dose: 25 mg Mineral Oil/White Petrolatum (Eucerin Cream) 0 gm TOP BIDPRN PRN PRN Reason: Dry Skin Nitroglycerin (Nitrostat) 0.4 mg SL Q5MIN PRN PRN Reason: Chest Pain Ondansetron HCl (Zofran) 4 mg IVP Q6H PRN PRN Reason: Nausea/Vomiting Last Admin: 12/19/16 06:31 Dose: 4 mg Phosphorus (Kphos Neutral) 250 mg PO BID-[facility] Last Admin: 12/21/16 09:12 Dose: 250 mg Potassium Chloride (Klor-Con 10) 10 meq PO BID-[facility] Last Admin: 12/21/16 08:54 Dose: 10 meq Promethazine HCl (Phenergan) 25 mg IM/IV Q6H PRN PRN Reason: Nausea/Vomiting Sodium Chloride ([place] Nasal [place] 0.65%) 0 ml EA NARE QIDPRN PRN PRN Reason: Nasal Congestion Sodium Chloride (Flush - Normal Saline) 10 ml IVF Q12HR [facility] Last Admin: 12/21/16 08:59 Dose: 10 ml Sodium Chloride (Flush - Normal Saline) 10 ml IVF PRN PRN PRN Reason: Saline Flush Thiamine HCl (Thiamine) 100 mg PO DAILY [facility] Last Admin: 12/21/16 08:53 Dose: 100 mg
[2016-12-22] MEDS: cefTRIAXone\\ROCEPHIN 1 GM in Sodium Chloride 0.9% 100 ML IVPB SCH (07:26)
[2016-12-22 08:35] LABS: ALT (SGPT) 21 U/L (8-55); AST (SGOT) 57 U/L (5-34); Alkaline Phosphatase 127 U/L (40-150); Anion Gap 16 mmol/L (10-20); BUN (Urea Nitrogen) 6 mg/dL (9.8-20.1); Calc. Creatinine Clearance 122 mL/min (70-130); Calcium 8.3 mg/dL (7.8-10.44); Carbon Dioxide 20 mmol/L (23-31); Chloride 106 mmol/L (98-107); Estimated GFR-MDRD Greater than 90; Globulin 2.6 g/dL (2.4-3.5); Protein, Total 5.6 g/dL (6.0-8.3)
[2016-12-22 08:38] LABS: Hematocrit 25.2 % (36.0-47.0); Mean Platelet Volume 9.8 fL (7.4-10.4); Red Blood Cell (RBC) Count 2.35 mill/uL (4.20-5.40); White Blood Cell (WBC) Count 2.6 thou/uL (4.8-10.8)
[2016-12-22 08:54] LABS: Band 1 % (5-11); Macrocytosis MODERATE=16-30 cells (100X) (0-5/hpf); Neutrophil 57 % (42-75)
[2016-12-22] MEDS: Multivitamin W/ Minerals 1 TAB PO SCH (09:26)
[2016-12-22] MEDS: Folic Acid 1 MG TAB PO SCH (09:26)
[2016-12-22] MEDS: K-Phos Neutral 250 MG TAB PO SCH ×2 (09:26→16:30)
[2016-12-22] MEDS: Potassium Chloride 10 MEQ TAB PO SCH ×2 (09:27→16:30)
[2016-12-22] MEDS: Magnesium Oxide 400 MG TAB PO SCH (09:27)
[2016-12-22] MEDS: Ferrous Sulfate 325 MG TAB PO SCH (09:27)
[2016-12-22] MEDS: Metoprolol Tartrate 25 MG TAB PO SCH ×2 (09:27→21:18)
[2016-12-22] MEDS: Cyanocobalamin (Vitamin B-12) 1,000 MCG TAB PO SCH (09:27)
[2016-12-22] MEDS: Enoxaparin Sodium 40 MG/0.4 ML SYRINGE SC SCH (09:28)
--- NOTE | 2016-12-22 15:04 | PDOC.PN ---
- Subjective Encounter Start Date: 12/22/16 Encounter Start Time: 08:55 Subjective: awake, oriented now, feels weak - Objective Resuscitation Status: Resuscitation Status FULL:Full Resuscitation MAR Reviewed: Yes Vital Signs & Weight: Vital Signs (12 hours) Temp Pulse Resp BP BP Pulse Ox 12/22/16 12:01 98.9 F 86 16 102/71 96 12/22/16 12:00 102/71 12/22/16 08:00 99 F 89 16 117/80 98 12/22/16 07:58 99 F 89 16 117/80 98 12/22/16 04:00 98.2 F 83 16 134/83 134/83 95 Weight Admit Weight 171 lb 5 oz Weight 174 lb 12.8 oz I&O: 12/21/16 12/22/16 12/23/16 06:59 06:59 06:59 Intake Total 3392 1880 Output Total 1500 3575 600 Balance 1892 -1695 -600 Result Diagrams: 12/22/16 08:02 12/22/16 08:02 Phys Exam - Physical Examination HEENT: PERRLA, moist MMs Neck: no JVD, supple Respiratory: no wheezing, no rales Cardiovascular: RRR, no significant murmur Gastrointestinal: soft, non-tender, positive bowel sounds Musculoskeletal: pulses present, edema present Neurological: non-focal, moves all 4 limbs Psychiatric: A&O x 3 Dx/Plan (1) Demand ischemia of myocardium Code(s): I24.8 - OTHER FORMS OF ACUTE ISCHEMIC HEART DISEASE Status: Acute (2) UTI (urinary tract infection) Status: Acute Qualifiers: Urinary tract infection type: acute cystitis Hematuria presence: without hematuria Qualified Code(s): N30.00 - Acute cystitis without hematuria (3) Alcohol abuse Code(s): F10.10 - ALCOHOL ABUSE, UNCOMPLICATED Status: Chronic (4) Macrocytic anemia Code(s): D53.9 - NUTRITIONAL ANEMIA, UNSPECIFIED Status: Chronic (5) Thrombocytopenia Code(s): D69.6 - THROMBOCYTOPENIA, UNSPECIFIED Status: Chronic (6) Acute metabolic encephalopathy Code(s): G93.41 - METABOLIC ENCEPHALOPATHY Status: Resolved (7) Dehydration Code(s): E86.0 - DEHYDRATION Status: Resolved (8) Intractable nausea and vomiting Code(s): R11.2 - NAUSEA WITH VOMITING, UNSPECIFIED Status: Resolved - Plan h/h stable, mild met acidosis -: deconditioning, awaiting swing bed -: is on ceftriaxone, will switch to oral levaquin in am -: on iron, vit b12, folic acid -: gagan guillen, one dose lasix * . Review of Systems - Medications/Allergies Allergies/Adverse Reactions: Allergies Allergy/AdvReac Type Severity Reaction Status Date / Time No Known Allergies Allergy Unverified 12/18/16 11:00 Medications: Current Medications Acetaminophen (Tylenol) 650 mg PO Q4H PRN PRN Reason: Headache/Fever or Pain Last Admin: 12/19/16 21:25 Dose: 650 mg Artificial Tears (Tears Naturale) 0 drop EA EYE PRN PRN PRN Reason: Dry Eyes Bisacodyl (Dulcolax) 10 mg MD DAILYPRN PRN PRN Reason: Constipation Cyanocobalamin (Vitamin B-12) 1,000 mcg PO DAILY [facility] Last Admin: 12/22/16 09:27 Dose: 1,000 mcg Enoxaparin Sodium (Lovenox) 40 mg SC 0900 [facility] Last Admin: 12/22/16 09:28 Dose: 40 mg Ferrous Sulfate (Feosol) 325 mg PO QAM-[facility] Last Admin: 12/22/16 09:27 Dose: 325 mg Folic Acid (Folvite) 1 mg PO DAILY [facility] Last Admin: 12/22/16 09:26 Dose: 1 mg Hydralazine HCl (Apresoline) 10 mg SLOW IVP Q4H PRN PRN Reason: Systolic BP > 180 Ceftriaxone Sodium 1 gm/ (Sodium Chloride) 100 mls @ 200 mls/hr IVPB 0700 [facility] Last Admin: 12/22/16 07:26 Dose: 100 mls Iron/Minerals/Multivitamins (Theragran M) 1 tab PO DAILY [facility] Last Admin: 12/22/16 09:26 Dose: 1 tab Lorazepam (Ativan) 1 mg SLOW IVP Q4H PRN PRN Reason: Anxiety/Agitation Last Admin: 12/19/16 21:28 Dose: 1 mg Magnesium Oxide (Magnesium Oxide) 400 mg PO DAILY [facility] Last Admin: 12/22/16 09:27 Dose: 400 mg Metoprolol Tartrate (Lopressor) 25 mg PO BID [facility] Last Admin: 12/22/16 09:27 Dose: 25 mg Mineral Oil/White Petrolatum (Eucerin Cream) 0 gm TOP BIDPRN PRN PRN Reason: Dry Skin Nitroglycerin (Nitrostat) 0.4 mg SL Q5MIN PRN PRN Reason: Chest Pain Ondansetron HCl (Zofran) 4 mg IVP Q6H PRN PRN Reason: Nausea/Vomiting Last Admin: 12/19/16 06:31 Dose: 4 mg Phosphorus (Kphos Neutral) 250 mg PO BID-[facility] Last Admin: 12/22/16 09:26 Dose: 250 mg Potassium Chloride (Klor-Con 10) 10 meq PO BID-[facility] Last Admin: 12/22/16 09:27 Dose: 10 meq Promethazine HCl (Phenergan) 25 mg IM/IV Q6H PRN PRN Reason: Nausea/Vomiting Sodium Chloride ([place] Nasal [place] 0.65%) 0 ml EA NARE QIDPRN PRN PRN Reason: Nasal Congestion Sodium Chloride (Flush - Normal Saline) 10 ml IVF Q12HR [facility] Last Admin: 12/22/16 09:28 Dose: 10 ml Sodium Chloride (Flush - Normal Saline) 10 ml IVF PRN PRN PRN Reason: Saline Flush Thiamine HCl (Thiamine) 100 mg PO DAILY [facility] Last Admin: 12/22/16 09:27 Dose: 100 mg
[2016-12-22] MEDS ORDERED: Furosemide 20 MG/2 ML VIAL SLOW IVP SCH (15:15)
[2016-12-23] MEDS: K-Phos Neutral 250 MG TAB PO SCH (08:22)
[2016-12-23] MEDS: Folic Acid 1 MG TAB PO SCH (08:22)
[2016-12-23] MEDS: Metoprolol Tartrate 25 MG TAB PO SCH (08:22)
[2016-12-23] MEDS: Ferrous Sulfate 325 MG TAB PO SCH (08:22)
[2016-12-23] MEDS: Potassium Chloride 10 MEQ TAB PO SCH (08:22)
[2016-12-23] MEDS: Magnesium Oxide 400 MG TAB PO SCH (08:22)
[2016-12-23] MEDS: Cyanocobalamin (Vitamin B-12) 1,000 MCG TAB PO SCH (08:22)
[2016-12-23] MEDS: Multivitamin W/ Minerals 1 TAB PO SCH (08:22)
[2016-12-23] MEDS: Enoxaparin Sodium 40 MG/0.4 ML SYRINGE SC SCH (08:23)
[2016-12-23 13:42] VITALS: BP 105/67; TEMP 97.4
--- NOTE | 2016-12-23 17:21 | PDOC.PN ---
- Subjective Encounter Start Date: 12/23/16 Encounter Start Time: 07:20 Subjective: no weakness, feels better - Objective Resuscitation Status: Resuscitation Status FULL:Full Resuscitation MAR Reviewed: Yes Vital Signs & Weight: Vital Signs (12 hours) Temp Pulse Resp BP BP Pulse Ox 12/23/16 12:00 97.4 F L 88 18 105/67 105/67 98 12/23/16 08:29 96.3 F L 95 18 122/63 98 12/23/16 08:00 97.6 F 95 18 122/63 98 Weight Admit Weight 171 lb 5 oz Weight 174 lb 12.8 oz I&O: 12/22/16 12/23/16 12/24/16 06:59 06:59 06:59 Intake Total 1880 400 Output Total 3575 600 Balance -1695 -200 Result Diagrams: 12/22/16 08:02 12/22/16 08:02 Phys Exam - Physical Examination HEENT: PERRLA, moist MMs Neck: no JVD, supple Respiratory: no wheezing, no rales Cardiovascular: RRR, no significant murmur Gastrointestinal: soft, non-tender, positive bowel sounds Musculoskeletal: no edema, pulses present Neurological: non-focal, moves all 4 limbs Psychiatric: A&O x 3 Dx/Plan (1) Demand ischemia of myocardium Code(s): I24.8 - OTHER FORMS OF ACUTE ISCHEMIC HEART DISEASE Status: Acute (2) UTI (urinary tract infection) Status: Acute Qualifiers: Urinary tract infection type: acute cystitis Hematuria presence: without hematuria Qualified Code(s): N30.00 - Acute cystitis without hematuria (3) Alcohol abuse Code(s): F10.10 - ALCOHOL ABUSE, UNCOMPLICATED Status: Chronic (4) Macrocytic anemia Code(s): D53.9 - NUTRITIONAL ANEMIA, UNSPECIFIED Status: Chronic (5) Thrombocytopenia Code(s): D69.6 - THROMBOCYTOPENIA, UNSPECIFIED Status: Chronic (6) Acute metabolic encephalopathy Code(s): G93.41 - METABOLIC ENCEPHALOPATHY Status: Resolved (7) Dehydration Code(s): E86.0 - DEHYDRATION Status: Resolved (8) Intractable nausea and vomiting Code(s): R11.2 - NAUSEA WITH VOMITING, UNSPECIFIED Status: Resolved - Plan electrolytes are stable -: pt has amb around 160ft with RW -: dc pt home with HH and PT * .
--- NOTE | 2016-12-23 22:52 | DIS ---
DATE OF ADMISSION: 12/18/2016 DATE OF DISCHARGE: 12/23/2016 DISCHARGE DISPOSITION: To home with home health and PT. PRIMARY DISCHARGE DIAGNOSES: Alcohol abuse with acute encephalopathy and multiple electrolyte abnor malities all resolved, urinary tract infection, demand ischemia, macrocytic anemia, thrombocytopenia , dehydration, intractable nausea and vomiting all resolved. PROCEDURES DONE DURING HOSPITALIZATION: Abdominal ultrasound done on the day of admission showed he patomegaly with diffuse fatty infiltration of the liver. There was cholelithiasis. Chest x-ray sean wed no acute cardiopulmonary abnormalities. Left wrist x-ray done was normal. Urine culture grew S trep agalactiae. Blood cultures x2 no growth. Discharge H\T\H 8 and 25, MCV 107. Platelet count 1 45, albumin is 3.0. Folic acid 4.20. B12 is 765, troponin I indeterminate with peaking up to 0.15, CK-MB 7.2. Alcohol levels were less than 10. DISCHARGE MEDICATIONS: Thiamine 100 mg p.o. daily, folic acid 1 mg p.o. daily, Levaquin 500 mg p.o. daily for 3 days for urinary tract infection, ferrous sulfate 325 mg p.o. daily, vitamin B12 of 100 0 mcg p.o. daily, multivitamin 1 tab once daily, Lopressor 12.5 mg p.o. twice daily. ALLERGIES: No known drug allergies. DISCHARGE PLAN: Patient to follow up with primary care physician in 1 week. BRIEF COURSE DURING HOSPITALIZATION: The patient initially got admitted with intractable nausea, vo miting with multiple electrolyte abnormalities, dehydration and metabolic acidosis. The patient rev ealed that she has been drinking 4 glasses of vodka on a daily basis. She quit this recently. In v iew of this history with severe dehydration, the patient was hospitalized. All other electrolytes h ave been corrected. The patient has mild deconditioning and home health with PT has been ordered fo r outpatient purpose. She has otherwise ambulated 160 feet with physical therapy with a brigette [employer] ker. She was counseled regarding alcohol abuse. She is hemodynamically stable and will be shortly discharged. Please see a [id number] documentation on [facility] for the day of discharge.
--- NOTE | 2016-12-24 14:53 | EKG ---
Test Reason : Blood Pressure : / mmHG Vent. Rate : 125 BPM Atrial Rate : 125 BPM P-R Int : 130 ms QRS Dur : 086 ms QT Int : 358 ms P-R-T Axes : 043 030 051 degrees QTc Int : 516 ms Sinus tachycardia Possible Left atrial enlargement Nonspecific ST abnormality Abnormal ECG Confirmed by GINI PIKE D.O. ([id number]), medical editor TRESSA BOSTON ([id number]) on 12/24/2016 2:52:51 PM Referred By: Confirmed By:GINI PIKE D.O.
== END 2016-12-23 14:46 | disposition home health service (06) | DRG 896 ==
LOC: ERS 07:05 → ERHOLD 09:38 → 2NO 12:25 → T4-A 12-21 09:56
PROVIDERS: ADMIT Internal Medicine; ATTEND Internal Medicine
PROC: 30233N1 Transfusion of Nonautologous Red Blood Cells into Peripheral Vein, Percutaneous Approach (ICD-10-PCS; principal; 2016-12-20)
DX: F10.239 Alcohol dependence with withdrawal, unspecified (principal); G93.41 Metabolic encephalopathy; E87.2 Acidosis; I24.8 Other forms of acute ischemic heart disease; D69.6 Thrombocytopenia, unspecified; N30.00 Acute cystitis without hematuria; E86.0 Dehydration; I10 Essential (primary) hypertension; F41.9 Anxiety disorder, unspecified; F32.9 Major depressive disorder, single episode, unspecified; E83.42 Hypomagnesemia; D64.9 Anemia, unspecified; B95.0 Streptococcus, group A, as the cause of diseases classified elsewhere; Y90.0 Blood alcohol level of less than 20 mg/100 ml; E87.6 Hypokalemia; E83.39 Other disorders of phosphorus metabolism
CPT/HCPCS: 36415; 36416; 36430; 51701; 71010; 76705; 80053; 80306; 80307; 81003; 81015; 82010; 82274; 82550; 82553; 82607; 82746; 82805; 83605; 83690; 83735; 83930; 83935; 84100; 84484; 84550; 85025; 86140; 86850; 86900; 86901; 87040; 87086; 93005; 93306; 96361; 96365; 96375; A4216; A4353; C9113; G8978-GP-CK; G8979-GP-CI; G8987-GO-CK; G8988-GO-CI; J0696; J1650; J1940; J2060; J2405; J3475; J3480; J7042; J7050; P9016

== ENCOUNTER 2017-10-22 10:43 | Inpatient (IN) | payer BC ==
[2017-10-22 12:01] LABS: ALT (SGPT) 9 U/L (8-55); AST (SGOT) 29 U/L (5-34); Albumin 4.1 g/dL (3.4-4.8); Alkaline Phosphatase 136 U/L (40-150); Anion Gap 32 mmol/L (10-20); BUN (Urea Nitrogen) 11 mg/dL (9.8-20.1); Calc. Creatinine Clearance 0 mL/min (70-130); Calcium 9.1 mg/dL (7.8-10.44); Carbon Dioxide 15 mmol/L (23-31); Chloride 93 mmol/L (98-107); Estimated GFR-MDRD 69; Glucose 124 mg/dL (80-115); Protein, Total 7.1 g/dL (6.0-8.3); Sodium 137 mmol/L (136-145)
[2017-10-22 12:05] LABS: CKMB 1.3 ng/mL (0-6.6); Potassium 2.5 mmol/L (3.5-5.1); Troponin I Less than 0.010 ng/mL (< 0.028)
[2017-10-22] MEDS ORDERED: Potassium Bicarbonate/Cit Ac 25 MEQ TAB ONE (12:08)
[2017-10-22 12:39] LABS: Acetaminophen Less than 6.0 mcg/mL (10.0-30.0); Alcohol Less than 10 mg/dL (Less than 10); Salicylate Less than 8.0 mg/dL (15.0-30.0)
[2017-10-22 13:16] LABS: Hemoglobin 6.7 g/dL (12.0-16.0); Mean Corpuscular HGB CONC 34.3 g/dL (32.0-36.0); Mean Corpuscular Hemoglobin 36.5 pg (27.0-31.0); Mean Platelet Volume 8.6 fL (7.4-10.4); Platelet Count 199 thou/uL (130-400); Red Blood Cell (RBC) Count 1.84 mill/uL (4.20-5.40); White Blood Cell (WBC) Count 3.4 thou/uL (4.8-10.8)
[2017-10-22 13:19] LABS: Band 2 % (5-11); Hypochromia SLIGHT = 6-15 cells (100X) (0-5/hpf); Lymphocytes 12 % (21-51); MDiff Complete? YES; Macrocytosis SLIGHT = 6-15 cells (100X) (0-5/hpf); Monocytes 15 % (0-10); Neutrophil 71 % (42-75); PLT Morphology Comment Appears Adequate; Polychromasia SLIGHT = 2-3 cells (100X) (0-2/hpf)
[2017-10-22] MEDS ORDERED: Magnesium 2 GM/NS 0.9% 100 ML 2 GM in Premix Bag 1 BAG IVPB SCH (13:30)
[2017-10-22] MEDS ORDERED: Magnesium Sulfate 2 GM in Sodium Chloride 0.9% 100 ML IVPB SCH (13:45)
--- NOTE | 2017-10-22 13:45 | RAD ---
PORTABLE AP CHEST X-RAY: 10/22/2017 HISTORY: Dyspnea. COMPARISON: 12/18/2016 FINDINGS: The cardiac silhouette and pulmonary vasculature are within normal limits for the portable technique of the study. Linear density overlies the lateral right lung base, likely related to overlying soft tissue density. The lungs are otherwise clear. Degenerative changes are seen in the spine. Degener ative changes are seen in the spine. There is left convex curvature of the thoracic spine. Post ezequiel gical changes of the left proximal humerus with prominent left glenohumeral osteoarthropathy is again present. IMPRESSION: No acute cardiopulmonary process. POS: [facility]
[2017-10-22] MEDS ORDERED: Acetaminophen 500 MG TAB ONE (15:10)
[2017-10-22] MEDS ORDERED: Acetaminophen 325 MG TAB ONE (20:56)
[2017-10-23 00:15] LABS: Anion Gap 22 mmol/L (10-20); BUN (Urea Nitrogen) 11 mg/dL (9.8-20.1); Calc. Creatinine Clearance 0 mL/min (70-130); Calcium 8.5 mg/dL (7.8-10.44); Carbon Dioxide 21 mmol/L (23-31); Chloride 98 mmol/L (98-107); Estimated GFR-MDRD 78; Glucose 113 mg/dL (80-115); Potassium 3.1 mmol/L (3.5-5.1); Sodium 138 mmol/L (136-145)
--- NOTE | 2017-10-23 00:29 | HP ---
PRIMARY CARE PHYSICIAN: Dr. Salgado. CHIEF COMPLAINT: Generalized weakness. HISTORY OF PRESENT ILLNESS: Mrs. Mac is a pleasant 62-year-old female who has a history of hyper tension and alcoholism. She was in her usual state of health until about 2 weeks ago. She says that she began feeling extremely weak and she started getting out of breath. She says the shortness of b reath is primarily with exertion. She says that she sits down or lies down that the shortness of cinthia ath would go away. She was also feeling fairly shaky. She admits that she is an alcoholic and says that she relapsed about 3 weeks ago and has been drinking heavily usually at least three drinks a day , but she says it is vodka typically. She also has noted a decreased appetite and she says she has f amada several times. She came to the emergency room for evaluation and in the ER, she was found to b e anemic with hemoglobin of 6.7. She was also neutropenic. She was also found to be hypokalemic wit h potassium of 2.5 and hypomagnesemic and she is being admitted for further evaluation. The patient states that she knows that she has an alcohol problem and she says that [facility]. She has already scheduled appointment to come in on Tuesday. The edi ent denies any nausea, no vomiting, no hematemesis, no blood in the stools or dark stools. The patie nt also says she has not really had any significant DTs. She says she typically will just get a hiram le bit shaky, but has never had a withdrawal seizure or syncope. REVIEW OF SYSTEMS: All systems were reviewed and are negative except for that mentioned in the histo ry of present illness. PAST MEDICAL HISTORY: Significant for hypertension, depression and anxiety. PAST SURGICAL HISTORY: She has had a left ankle surgery, a D&C, hysteroscopy and shoulder surgery. ALLERGIES: No known drug allergies. SOCIAL HISTORY: She drinks three vodka drinks a day. She is and is a nonsmoker. FAMILY HISTORY: Significant for diabetes mellitus in her mother. MEDICATIONS: Include metoprolol 25 mg 1-1/2 tablets twice a day, folic acid 0.4 mg daily, vitamin B1 of 100 mg daily, vitamin B12 and folic acid 1000/400 mcg sublingual daily. PHYSICAL EXAMINATION: GENERAL: She is alert and oriented. She appears to be in no acute distress. VITAL SIGNS: Blood pressure was 110/63, heart rate has ranged from 97-125, respiratory rate of 16, a nd she is afebrile. HEENT: Pupils are equal, round, and reactive. Extraocular muscles are intact. Her sclerae are anic teric. Throat: There is no erythema, no exudates. NECK: No adenopathy, no bruits. LUNGS: Clear to auscultation. There was no wheezing, no rales. CARDIOVASCULAR: She had a normal S1, S2. There is no S3 or S4. No murmurs, clicks or rubs. ABDOMEN: Soft, it is nontender, nondistended. Positive for bowel sounds. There is no rebound or gu arding. EXTREMITIES: There is no clubbing, cyanosis, no edema. She did have some mild erythema of her secon d toe. Dorsalis pedis pulses were palpable. NEUROLOGICALLY: The exam is grossly nonfocal. SKIN AND INTEGUMENT: No skin changes or rash. LABORATORY RESULTS: White blood cell count 3.4, hemoglobin 6.7, hematocrit is 19.6, platelet count i s 199. Sodium 137, potassium 2.5, chloride is 93, CO2 is 15, BUN of 11, creatinine 0.83, glucose is 124, magnesium is 0.7. ASSESSMENT AND PLAN: This is a pleasant 62-year-old female that presents to the emergency room with generalized weakness, likely as a result of her alcoholism. She will be placed in observation. We w ill transfuse a unit of packed RBCs and continue folic acid and multivitamins as she has a macrocytic anemia likely as a result of bone marrow suppression from alcoholism. I suspect that the electrolyt e abnormalities are also as a result of alcohol abuse, these will be replaced as well. We will get a stool guaiac just to make sure there is no significant indication of GI bleed; however, she does not give that history. Hopefully, we will also place her on Ativan as needed for potential delirium jenise mens; however, this is unlikely and hopefully tomorrow if her electrolytes are replaced, her hemoglob in is better, she can be discharged home.
[2017-10-23] MEDS ORDERED: Docusate 100 MG CAP PO PRN (01:40)
[2017-10-23 02:32] VITALS: BMI 26.2
[2017-10-23] MEDS: Acetaminophen 325 MG TAB PO PRN ×2 (04:32→17:40)
[2017-10-23 05:34] LABS: Anion Gap 19 mmol/L (10-20); BUN (Urea Nitrogen) 9 mg/dL (9.8-20.1); Calc. Creatinine Clearance 91 mL/min (70-130); Calcium 8.2 mg/dL (7.8-10.44); Carbon Dioxide 23 mmol/L (23-31); Chloride 97 mmol/L (98-107); Estimated GFR-MDRD 90; Glucose 119 mg/dL (80-115); Sodium 136 mmol/L (136-145)
[2017-10-23 05:39] LABS: Potassium 2.6 mmol/L (3.5-5.1)
[2017-10-23] MEDS: Potassium Chloride 20 MEQ TAB PO SCH ×5 (06:07→17:40)
[2017-10-23 06:17] LABS: Band 22 % (5-11); Eosinophils 1 % (0-10); Hemoglobin 7.1 g/dL (12.0-16.0); Lymphocytes 37 % (21-51); MDiff Complete? YES; Mean Corpuscular HGB CONC 35.1 g/dL (32.0-36.0); Mean Corpuscular Hemoglobin 34.5 pg (27.0-31.0); Mean Corpuscular Volume 98.2 fL (78.0-98.0); Mean Platelet Volume 8.6 fL (7.4-10.4); Monocytes 12 % (0-10); Neutrophil 27 % (42-75); PLT Morphology Comment Appears Adequate; Platelet Count 142 thou/uL (130-400); Red Blood Cell (RBC) Count 2.04 mill/uL (4.20-5.40); White Blood Cell (WBC) Count 2.2 thou/uL (4.8-10.8)
[2017-10-23] MEDS: traMADol HCl 50 MG TAB PO PRN ×2 (06:29→23:33)
[2017-10-23] MEDS ORDERED: Magnesium Sulfate 2 GM in Sodium Chloride 0.9% 100 ML IVPB SCH (07:00)
[2017-10-23] MEDS: Magnesium Oxide 400 MG TAB PO SCH ×2 (09:46→19:37)
[2017-10-23] MEDS: Folic Acid 1 MG TAB PO SCH (09:46)
[2017-10-23] MEDS: Multivitamin W/ Minerals 1 TAB PO SCH (09:46)
[2017-10-23] MEDS: Metoprolol Tartrate 25 MG TAB PO SCH ×2 (09:46→19:38)
--- NOTE | 2017-10-23 11:56 | PDOC.PN ---
- Subjective Encounter Start Date: 10/23/17 Encounter Start Time: 11:53 Mr. Mac was seen today in follow-up of generalized weakness. She is still feeling weak. - Objective Resuscitation Status: Resuscitation Status FULL:Full Resuscitation MAR Reviewed: Yes Vital Signs & Weight: Vital Signs (12 hours) Temp Pulse Resp BP Pulse Ox 10/23/17 08:05 97.7 F 96 16 107/70 98 10/23/17 04:20 99 F 98 24 H 107/58 L 97 10/23/17 01:20 98.5 F 101 H 20 120/70 100 Weight Weight 147 lb 14.4 oz I&O: 10/22/17 10/23/17 10/24/17 06:59 06:59 06:59 Intake Total 240 Balance 240 Result Diagrams: 10/23/17 04:23 10/23/17 04:23 Phys Exam - Physical Examination HEENT: PERRLA Respiratory: no wheezing, no rales, no rhonchi, clear to auscultation bilateral Cardiovascular: RRR, no significant murmur, no rub Gastrointestinal: soft, non-tender, positive bowel sounds Musculoskeletal: no edema Dx/Plan (1) Alcohol abuse Code(s): F10.10 - ALCOHOL ABUSE, UNCOMPLICATED Status: Chronic (2) Hypokalemia Code(s): E87.6 - HYPOKALEMIA Status: Resolved (3) Hypomagnesemia Code(s): E83.42 - HYPOMAGNESEMIA Status: Resolved (4) Foot pain, right Code(s): M79.671 - PAIN IN RIGHT FOOT Status: Acute - Plan * Hypokalemia and Hypomagnesemia- will continue to replace * Right foot pain- following a fall- will check an X-ray * Anemia, and Leukopenia- likely from bone marrow suppression from alcohol abuse - H&H has improved after transfusion .
--- NOTE | 2017-10-23 15:44 | RAD ---
RIGHT FOOT THREE VIEWS: History: 62-year-old female with history of right foot pain following a fall and injury. FINDINGS: Severe arthrosis of the first metatarsal phalangeal joint. No evidence for acute fracture or dislocat ion. Minimal diffuse soft tissue swelling of the lower leg, ankle, and foot. Calcaneal plantar enthes ophytic changes. 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 No acut e fracture or dislocation. POS: [facility]
[2017-10-24 05:42] LABS: Hemoglobin 7.7 g/dL (12.0-16.0); Platelet Count 137 thou/uL (130-400)
[2017-10-24 05:50] LABS: Anion Gap 12 mmol/L (10-20); BUN (Urea Nitrogen) 9 mg/dL (9.8-20.1); Calc. Creatinine Clearance 97 mL/min (70-130); Calcium 8.6 mg/dL (7.8-10.44); Carbon Dioxide 24 mmol/L (23-31); Chloride 101 mmol/L (98-107); Estimated GFR-MDRD Greater than 90; Glucose 115 mg/dL (80-115); Potassium 4.9 mmol/L (3.5-5.1); Sodium 132 mmol/L (136-145)
[2017-10-24] MEDS: Potassium Chloride 20 MEQ TAB PO SCH ×3 (09:07→16:49)
[2017-10-24] MEDS: Magnesium Oxide 400 MG TAB PO SCH ×2 (09:07→21:02)
[2017-10-24] MEDS: Folic Acid 1 MG TAB PO SCH (09:07)
[2017-10-24] MEDS: Multivitamin W/ Minerals 1 TAB PO SCH (09:08)
[2017-10-24] MEDS: Metoprolol Tartrate 25 MG TAB PO SCH ×2 (09:08→21:01)
[2017-10-24] MEDS: traMADol HCl 50 MG TAB PO PRN (09:09)
[2017-10-24] MEDS ORDERED: Magnesium Sulfate 2 GM in Sodium Chloride 0.9% 100 ML IVPB SCH (10:15)
--- NOTE | 2017-10-24 10:22 | PDOC.PN ---
- Subjective Encounter Start Date: 10/24/17 Encounter Start Time: 10:18 Ms. Mac was here for follow-up of Hypokalemia, and Anemia, and Hyomagnesemia. She is feeling better today, and would like to go home if possible. - Objective Resuscitation Status: Resuscitation Status FULL:Full Resuscitation MAR Reviewed: Yes Vital Signs & Weight: Vital Signs (12 hours) Temp Pulse Resp BP Pulse Ox 10/24/17 09:02 97.9 F 93 14 104/54 L 100 10/24/17 04:25 98.6 F 88 20 104/67 99 10/23/17 23:30 98.3 F 95 20 100/63 99 Weight Weight 150 lb 9.6 oz I&O: 10/23/17 10/24/17 10/25/17 06:59 06:59 06:59 Intake Total 240 2070 Balance 240 2070 Result Diagrams: 10/24/17 05:12 10/24/17 05:12 Phys Exam - Physical Examination HEENT: PERRLA Respiratory: no wheezing, no rales, no rhonchi, clear to auscultation bilateral Cardiovascular: RRR, no significant murmur, no rub Gastrointestinal: soft, non-tender, positive bowel sounds Musculoskeletal: edema present she did have some redness on the 2rd and 4th toes on the right foot Dx/Plan (1) Alcohol abuse Code(s): F10.10 - ALCOHOL ABUSE, UNCOMPLICATED Status: Chronic (2) Hypokalemia Code(s): E87.6 - HYPOKALEMIA Status: Resolved (3) Hypomagnesemia Code(s): E83.42 - HYPOMAGNESEMIA Status: Resolved (4) Foot pain, right Code(s): M79.671 - PAIN IN RIGHT FOOT Status: Acute - Plan * Hypokalemia- improved * Hypomagnesemia- will continue to replace Magnesium * Anemia- improved * Alcoholism- she plans to enter a Inpatient program tomorrow * Possible discharge home today..
[2017-10-24] MEDS: Acetaminophen 325 MG TAB PO PRN (21:02)
[2017-10-25 06:25] LABS: Anion Gap 12 mmol/L (10-20); BUN (Urea Nitrogen) 8 mg/dL (9.8-20.1); Calc. Creatinine Clearance 100 mL/min (70-130); Calcium 9.3 mg/dL (7.8-10.44); Carbon Dioxide 25 mmol/L (23-31); Chloride 102 mmol/L (98-107); Estimated GFR-MDRD Greater than 90; Glucose 108 mg/dL (80-115); Magnesium 1.4 mg/dL (1.6-2.6); Potassium 5.1 mmol/L (3.5-5.1); Sodium 134 mmol/L (136-145)
[2017-10-25] MEDS: traMADol HCl 50 MG TAB PO PRN (06:33)
[2017-10-25] MEDS: Folic Acid 1 MG TAB PO SCH (08:31)
[2017-10-25] MEDS: Magnesium Oxide 400 MG TAB PO SCH (08:32)
[2017-10-25] MEDS: Multivitamin W/ Minerals 1 TAB PO SCH (08:32)
[2017-10-25] MEDS: Potassium Chloride 20 MEQ TAB PO SCH ×2 (08:33→11:42)
[2017-10-25] MEDS: Metoprolol Tartrate 25 MG TAB PO SCH (08:34)
--- NOTE | 2017-10-25 10:04 | PDOC.PN ---
- Subjective Encounter Start Date: 10/25/17 Encounter Start Time: 10:02 Ms. Mac was seen today in follow-up, of Hypokalemia, and hypomagnesemia - Objective Resuscitation Status: Resuscitation Status FULL:Full Resuscitation MAR Reviewed: Yes Vital Signs & Weight: Vital Signs (12 hours) Temp Pulse Resp BP Pulse Ox 10/25/17 08:27 98 F 94 16 111/67 97 10/25/17 04:00 98.1 F 97 18 129/66 100 Weight Weight 148 lb 1.6 oz I&O: 10/24/17 10/25/17 10/26/17 06:59 06:59 06:59 Intake Total 2069 300 Balance 2069 300 Result Diagrams: 10/24/17 05:12 10/25/17 05:36 Phys Exam - Physical Examination HEENT: PERRLA Respiratory: no wheezing, no rales, no rhonchi, clear to auscultation bilateral Cardiovascular: RRR, no significant murmur, no rub Gastrointestinal: soft, non-tender, positive bowel sounds Musculoskeletal: no edema Dx/Plan (1) Alcohol abuse Code(s): F10.10 - ALCOHOL ABUSE, UNCOMPLICATED Status: Chronic (2) Foot pain, right Code(s): M79.671 - PAIN IN RIGHT FOOT Status: Acute - Plan * Hypokalemia- replaced * Hypomagnesemia- improved * Alcohol abuse- she plans to go to treatment * Stable for discharge home today.
--- NOTE | 2017-10-25 11:27 | DIS ---
DATE OF ADMISSION: 10/22/2017 DATE OF DISCHARGE: 10/25/2017 PRIMARY CARE PHYSICIAN: Mesha Wagner M.D. DISCHARGE DISPOSITION: Home. PRIMARY DISCHARGE DIAGNOSES: 1. Hypokalemia. 2. Hypomagnesemia. 3. Macrocytic anemia. 4. Alcohol abuse and alcoholism. 5. Hypertension. DISCHARGE MEDICATIONS: These include thiamine 100 mg daily as well as a multivitamin daily, metoprol ol will be on hold, folic acid 1 mg daily, vitamin B12 1000 mcg daily, and Symbicort 160/4.5 one puff twice daily, and the metoprolol is on hold due to low blood pressures. CODE STATUS: FULL CODE. ALLERGIES: No known drug allergies. HOSPITAL COURSE: Ms. Mac is a pleasant 62-year-old female that has a history of alcoholism. She was doing well by abstaining from alcohol, but then recently started drinking again. She began feel ing extremely weak and came to the emergency room for evaluation. There she was found to be hypokale alex as well as hypomagnesemic and anemic with a hemoglobin of approximately 6.7. She was admitted an d transfused a unit and also had a repletion of her potassium and her magnesium. She began feeling i mproved after this. She also said that she had hurt her foot when she fell, and an x-ray was done, w [facility] did not show any fractures. She was seen by physical therapy and was able to ambulate and once her potassium was improved as well as her magnesium, she was stable for discharge home. She already said she planned to go to [facility] for alcohol treatment and then also will follow up with her [facility] physician in 1-2 days in order to recheck her blood pressure and determine whether or not s he needs to continue on the metoprolol.
[2017-10-25 15:13] VITALS: BP 114/70; TEMP 98.3
== END 2017-10-25 15:05 | disposition home or self-care (01) | DRG 812 ==
LOC: ERS 10:43 → ERHOLD 13:15 → 2NO 10-23 01:11
PROVIDERS: ADMIT Family Medicine; ATTEND Family Medicine
PROC: 30233N1 Transfusion of Nonautologous Red Blood Cells into Peripheral Vein, Percutaneous Approach (ICD-10-PCS; principal; 2017-10-22)
DX: D53.9 Nutritional anemia, unspecified (principal); E83.42 Hypomagnesemia; E87.6 Hypokalemia; F10.20 Alcohol dependence, uncomplicated; D70.9 Neutropenia, unspecified; I10 Essential (primary) hypertension; F41.9 Anxiety disorder, unspecified; F32.9 Major depressive disorder, single episode, unspecified; M79.671 Pain in right foot; Z91.81 History of falling; Z79.899 Other long term (current) drug therapy
CPT/HCPCS: 36415; 36430; 71045; 80048; 80053; 80307; 82274; 82553; 83735; 84443; 84484; 85014; 85018; 85025; 85049; 86850; 86900; 86901; 93005; 94760; 96361; 96365; G8978-GP-CJ; G8979-GP-CJ; G8980-GP-CJ; J3475; J7050; P9016

== ENCOUNTER 2018-06-12 11:05 | Inpatient (IN) | payer BC ==
[~2018-06-12 11:05] MED LIST: ISOVUE-370 76%-LOCM 1 ML ONE
[2018-06-12 13:08] LABS: ALT (SGPT) 14 U/L (8-55); AST (SGOT) 42 U/L (5-34); Albumin 4.2 g/dL (3.4-4.8); Alkaline Phosphatase 133 U/L (40-150); Anion Gap 29 mmol/L (10-20); BUN (Urea Nitrogen) 16 mg/dL (9.8-20.1); Bilirubin, Total 1.1 mg/dL (0.2-1.2); Calc. Creatinine Clearance 0 mL/min (70-130); Calcium 10.1 mg/dL (7.8-10.44); Carbon Dioxide 18 mmol/L (23-31); Chloride 95 mmol/L (98-107); Estimated GFR-MDRD 54; Globulin 2.5 g/dL (2.4-3.5); Glucose 113 mg/dL (80-115); Protein, Total 6.7 g/dL (6.0-8.3); Sodium 139 mmol/L (136-145)
[2018-06-12 13:13] LABS: Potassium 2.8 mmol/L (3.5-5.1)
[2018-06-12 13:18] LABS: Hemoglobin 8.4 g/dL (12.0-16.0); Mean Corpuscular HGB CONC 34.2 g/dL (32.0-36.0); Mean Platelet Volume 8.2 fL (7.4-10.4); Platelet Count 162 thou/uL (130-400); Red Blood Cell (RBC) Count 2.33 mill/uL (4.20-5.40); White Blood Cell (WBC) Count 2.7 thou/uL (4.8-10.8)
[2018-06-12] MEDS ORDERED: Lorazepam 2 MG/ML VIAL ONE (13:19)
[2018-06-12 13:26] LABS: Phosphorus 1.1 mg/dL (2.3-4.7)
[2018-06-12] MEDS ORDERED: K-Phos Neutral 250 MG TAB PO SCH (14:00)
[2018-06-12 14:13] LABS: #Lymphocytes 0.5 thou/uL (1.20-3.40); #Monocytes 0.3 thou/uL (0.11-0.59); #Neutrophils 1.9 thou/uL (1.40-6.50); %Basophils 0.2 % (0.0-1.0); %Eosinophils 1.2 % (0.0-10.0); %Lymphocytes 18.3 % (21.0-51.0); %Monocytes 11.5 % (0.0-10.0); %Neutrophils 68.8 % (42.0-75.0); Anisocytosis SLIGHT = 6-15 cells (100X) (0-5/hpf); MDiff Complete? YES; Macrocytosis SLIGHT = 6-15 cells (100X) (0-5/hpf); Platelet Morphology Comment Appears Adequate
[2018-06-12] MEDS ORDERED: Potassium Chloride 20 MEQ TAB ONE (14:39)
[2018-06-12 14:49] LABS: Base Excess-Venous -5.4 mmol/L (-2.0 to 3.0); Bicarbonate (HCO3v) 18.8 mmol/L (22.0-28.0); CO2 Tension (PvCO2) 30.7 mmHg (40.0-50.0); Calcium, Ionized 1.16 mmol/L (See Comments:); Chloride 101 mmol/L (98-107); Hemoglobin - Calc 8.1 g/dL (12.0-16.0); O2 Tension (PvO2) 17.4 mmHg (35.0-45.0); Potassium 2.5 mmol/L (3.5-5.1); Sodium 135 mmol/L (138-145); T. Carbon Dioxide 19.7 mmol/L (22.0-28.0); pH (Venous) 7.395 (7.320-7.430); vO2 Saturation-calc 25.9 % (60.0-85.0)
--- NOTE | 2018-06-12 14:58 | CT ---
CTA CHEST WITH AND WITHOUT CONTRAST WITH 3D VOLUME RENDERING: Date: 06/12/18 INDICATION: Dyspnea, weak. FINDINGS: There is no large, central filling defect of the pulmonary arteries identified. Scattered vascular di sease is present. No evidence of acute aneurysm or dissection of the aorta within the visualized aspe cts of the chest and upper abdomen. Partially imaged liver reveals low density indicative of hepatic steatosis. There is interstitial prominence of the lungs bilaterally, as well as mild honeycombing to indicate mild pulmonary fibrosis. There is levocurvature of the thoracic spine. IMPRESSION: No large, central pulmonary embolus. POS: MICHELE
[2018-06-12] MEDS ORDERED: Magnesium 2 GM/50 ML BAG (IN WATER) ONE (15:00)
[2018-06-12] MEDS ORDERED: Potassium Chloride 20 MEQ in Premix Bag 1 BAG IVPB SCH (16:15)
[2018-06-12] MEDS ORDERED: Potassium Chloride 20 MEQ/100 ML PREMIX BAG ONE (16:33)
[2018-06-12] MEDS ORDERED: Dextrose 5 %-0.45 % NaCl 1,000 ML IV SCH (18:00)
[2018-06-12] MEDS ORDERED: Ondansetron PF 4 MG/2 ML Vial IVP PRN (20:11)
[2018-06-12] MEDS ORDERED: Lorazepam 2 MG/ML VIAL SLOW IVP PRN (20:14)
[2018-06-12] MEDS ORDERED: Magnesium 2 GM/50 ML 2 GM in Premix Bag 1 BAG IVPB SCH (20:30)
[2018-06-12] MEDS ORDERED: Multivitamins, Adult 10 ML, Folic Acid 1 MG, Thiamine HCl 100 MG in Dextrose 5 %-0.45 %... IV SCH (21:00)
--- NOTE | 2018-06-12 21:23 | PDOC.EVN ---
Event Note - Event Note Event Note: H&P #[id number]
[2018-06-12 21:58] VITALS: BMI 26.1
--- NOTE | 2018-06-13 02:33 | HP ---
CHIEF COMPLAINT: Shortness of breath. HISTORY OF PRESENT ILLNESS: This is a 63-year-old female, who was brought in due to difficulty walking and shortness of breath on walking 10-15 feet. Of note, the patient admits to a past medical history of significant alcoholism. Apparently states that she drinks approximately 2 glasses of wine daily and has been doing so consistently for a while, recently stopped. The patient otherwise states that she feels okay. Denies any other medical history or illnesses. No alleviating factors or no aggravating factors noted. The patient is seen and examined in the room. All questions answered. REVIEW OF SYSTEMS: All systems reviewed. Pertinent positives in HPI, otherwise negative. PAST MEDICAL HISTORY: Positive for hypertension, left breast mass. FAMILY HISTORY: Positive for alcoholism. SOCIAL HISTORY: Heavy drinker. Social smoker. HOME MEDICATIONS: See MAR. PHYSICAL EXAMINATION: VITAL SIGNS: Blood pressure was 120/93, pulse of 114, O2 saturations 100% on room air, and temperature of 97.6. GENERAL: The patient is lying in bed, in mild discomfort. HEENT: Pupils are equal, round, and reactive to light and accommodation. Extraocular muscles intact. Oral cavity moist and pink. CARDIOVASCULAR: Tachycardia, sinus, 2/6 systolic ejection murmur appreciated. No rubs or gallops noted. PULMONARY: Clear to auscultation bilaterally. No rales, rhonchi, or wheezing noted. ABDOMEN: Mildly tender to palpation. Positive bowel sounds. Soft. EXTREMITIES: 2+ peripheral pulses noted. Trace edema. NEUROLOGIC: Cranial nerves 2 through 12 intact. Alert and oriented x3. LABORATORY DATA: CBC shows hemoglobin of 8.4, WBC of 2.7, otherwise normal. VBG shows a pH of 7.4, pCO2 of 31, PO2 of 17.4. Basic metabolic panel shows potassium of 2.8, sodium of 135, anion gap of 28, bicarb of 18, magnesium 0.7, phosphorus 1.1, otherwise liver function panel is normal. Beta hydroxybutyrate is 7.46. IMAGING: Chest CTA was done, which showed no large central pulmonary embolus and normal CT scan otherwise. ASSESSMENT: 1. Dyspnea on exertion. 2. Hypertension. 3. Alcohol abuse. 4. Shortness of breath. PLAN: 1. The patient probably has worsening COPD or role of heart failure going on at this point in time. We will start the patient on anxiety medications. Replace potassium and magnesium. Electrolytes were low. 2. The patient wishes to remain a full code. 3. We will provide p.r.n. oxygen. CBC, BMP in the morning. We will also obtain an echocardiogram for cardiac function and request the patient to follow a low-fat, low-calorie, low-salt diet. If the patient's shortness of breath does worsen, can use DuoNeb which will be provided p.r.n. Depending on echo, the patient may or may not need diuretics long-term at point in time of discharge. Case and plan discussed with the patient at length. She understood and agreed with this plan. Job ID: [id number]
[2018-06-13 09:41] LABS: #Lymphocytes 0.5 thou/uL (1.20-3.40); #Monocytes 0.2 thou/uL (0.11-0.59); #Neutrophils 0.8 thou/uL (1.40-6.50); %Eosinophils 2.8 % (0.0-10.0); %Neutrophils 50.3 % (42.0-75.0); Hemoglobin 6.9 g/dL (12.0-16.0); Mean Corpuscular HGB CONC 34.5 g/dL (32.0-36.0); Mean Corpuscular Hemoglobin 35.5 pg (27.0-31.0); Mean Platelet Volume 8.1 fL (7.4-10.4); Platelet Count 143 thou/uL (130-400); RBC Distribution Width 13.9 % (11.5-14.5); Red Blood Cell (RBC) Count 1.95 mill/uL (4.20-5.40); White Blood Cell (WBC) Count 1.7 thou/uL (4.8-10.8)
[2018-06-13] MEDS ORDERED: Lorazepam 1 MG TAB PO PRN (09:50)
[2018-06-13 09:58] LABS: Anion Gap 11 mmol/L (10-20); BUN (Urea Nitrogen) 9 mg/dL (9.8-20.1); Calc. Creatinine Clearance 81 mL/min (70-130); Calcium 8.9 mg/dL (7.8-10.44); Carbon Dioxide 27 mmol/L (23-31); Chloride 99 mmol/L (98-107); Estimated GFR-MDRD 80; Glucose 128 mg/dL (80-115); Sodium 134 mmol/L (136-145)
[2018-06-13 10:00] LABS: Potassium 2.8 mmol/L (3.5-5.1)
[2018-06-13] MEDS ORDERED: Thiamine 100 MG TAB PO SCH (10:30)
[2018-06-13] MEDS ORDERED: Folic Acid 1 MG TAB PO SCH (10:30)
[2018-06-13] MEDS ORDERED: Multivit, Therapeutic 1 TAB PO SCH (10:30)
[2018-06-13] MEDS ORDERED: pyridOXINE 50 MG (B6) TAB PO SCH (10:30)
[2018-06-13] MEDS: NS 0.9% w/ 40 MEQ KCL 1,000 ML IV SCH ×2 (10:32→20:17)
[2018-06-13] MEDS ORDERED: Potassium Chloride 40 MEQ in Sodium Chloride 0.9% 250 ML 250 ML IVPB SCH (11:00)
[2018-06-13] MEDS ORDERED: Magnesium Sulfate 4 GM in Sodium Chloride 0.9% 250 ML 250 ML IVPB SCH (11:00)
[2018-06-13 11:01] LABS: Reticulocyte Count 0.2 % (0.5-1.5)
[2018-06-13 11:27] LABS: Iron 49 ug/dL (50-170); Iron Binding Capacity, Total 134 mcg/dL (265-497); Magnesium 1.2 mg/dL (1.6-2.6); Phosphorus Less than 1.0 mg/dL (2.3-4.7)
[2018-06-13] MEDS ORDERED: Potassium Chloride 20 MEQ TAB PO SCH (12:00)
[2018-06-13] MEDS ORDERED: Potassium Phosphate 30 MMOL in Sodium Chloride 0.9% 500 ML IVPB SCH (12:30)
[2018-06-13] MEDS: Potassium Chloride 20 MEQ TAB PO SCH ×2 (12:46→17:19)
[2018-06-13] MEDS: K-Phos Neutral 250 MG TAB PO SCH (17:19)
--- NOTE | 2018-06-13 23:03 | PDOC.PN ---
- Subjective Encounter Start Date: 06/13/18 Encounter Start Time: 17:30 Patient seen and examined for Gen weakness/SOB. Feels sligthly better. No CP. No other complaints. No overnight events - Objective MAR Reviewed: Yes Vital Signs & Weight: Vital Signs (12 hours) Temp Pulse Resp BP Pulse Ox 06/13/18 19:51 98.4 F 106 H 20 110/73 99 06/13/18 19:45 99 Weight Weight 147 lb 8 oz I&O: 06/12/18 06/13/18 06/14/18 06:59 06:59 06:59 Intake Total 2180 384 Balance 2180 384 Result Diagrams: 06/13/18 09:17 06/13/18 09:17 Additional Labs: Laboratory Tests 06/12/18 06/12/18 06/13/18 12:32 12:32 10:47 Retic Count Phosphorus Less than 1.0 L Magnesium 0.7 L* 1.2 L Iron 49 L TIBC 134 L Ferritin B-Hydroxybutyrate 7.46 H 06/13/18 06/13/18 06/13/18 10:47 10:48 10:48 Retic Count 0.2 L Phosphorus Magnesium Iron TIBC Ferritin 4860.97 H B-Hydroxybutyrate 0.16 Phys Exam - Physical Examination Constitutional: NAD Neck: no JVD Respiratory: no wheezing, no rales, no rhonchi, clear to auscultation bilateral Cardiovascular: RRR, no rub no heaves/pulsations Gastrointestinal: soft, non-tender, no distention, positive bowel sounds Musculoskeletal: no edema, pulses present Neurological: non-focal, normal sensation, moves all 4 limbs Psychiatric: normal affect, A&O x 3 Dx/Plan - Plan DVT proph w/SCDs 1. Gen weakness - multifactorial 2. Electrolyte abn (Hypomagnesemia/Hypophosphatemia/Hypokalemia) 3. Chronic Alcohol abuse 4. Anemia due to chronic disease 5. Alcoholic/Starvation Ketoacidosis 6. Anxiety 7. HTN PLAN: Transfuse 1 unit PRBC Replace electrolytes PT eval Add alcohol withdrawal protocol Thiamine/folic acid and MVM Check folic acid and Vit B12 level in AM Conselled to quit drinking Review of Systems - Review of Systems Respiratory: negative: Cough, Dry, Shortness of Breath, Hemoptysis, SOB with Excertion, Pleuritic Pain, Sputum, Wheezing Cardiovascular: negative: chest pain, palpitations, orthopnea, paroxysmal nocturnal dyspnea, edema, light headedness, other Gastrointestinal: negative: Nausea, Vomiting, Abdominal Pain, Diarrhea, Constipation, Melena, Hematochezia, Other - Medications/Allergies Allergies/Adverse Reactions: Allergies Allergy/AdvReac Type Severity Reaction Status Date / Time No Known Allergies Allergy Verified 06/12/18 21:50 Medications: Current Medications Albuterol/Ipratropium (Duoneb) 3 ml NEB [id number] PRN PRN Reason: SOB &/or Wheezing Albuterol/Ipratropium (Duoneb) 3 ml NEB [id number] PRN PRN Reason: SOB &/or Wheezing Folic Acid (Folvite) 1 mg PO DAILY [facility] Potassium Chloride/Sodium Chloride (Ns 0.9% W/ 40 Meq Kcl) 1,000 mls @ 100 mls/ hr IV .Q10H JOHN[facility] Last Admin: 06/13/18 20:17 Dose: Not Given Lorazepam (Ativan) 2 mg SLOW IVP Q6H PRN PRN Reason: Anxiety/Agitation Lorazepam (Ativan) 1 mg PO Q4H PRN PRN Reason: ASE >=9 Multivitamins (Theragran) 1 tab PO DAILY [facility] Ondansetron HCl (Zofran) 4 mg IVP Q6H PRN PRN Reason: Nausea/Vomiting Phosphorus (Kphos Neutral) 500 mg PO TID-WM [facility] Last Admin: 06/13/18 17:19 Dose: 500 mg Potassium Chloride (K-Dur) 20 meq PO TID-WM [facility] Last Admin: 06/13/18 17:19 Dose: 20 meq Pyridoxine HCl (Vitamin B 6) 50 mg PO DAILY [facility] Sodium Chloride (Flush - Normal Saline) 10 ml IVF PRN PRN PRN Reason: Saline Flush Thiamine HCl (Thiamine) 100 mg PO DAILY [facility]
[2018-06-14] MEDS: NS 0.9% w/ 40 MEQ KCL 1,000 ML IV SCH (02:30)
[2018-06-14] MEDS: pyridOXINE 50 MG (B6) TAB PO SCH (07:46)
[2018-06-14] MEDS: Thiamine 100 MG TAB PO SCH (07:46)
[2018-06-14] MEDS: K-Phos Neutral 250 MG TAB PO SCH ×3 (07:46→17:47)
[2018-06-14] MEDS: Potassium Chloride 20 MEQ TAB PO SCH ×2 (07:47→11:31)
[2018-06-14] MEDS: Multivit, Therapeutic 1 TAB PO SCH (07:48)
[2018-06-14] MEDS ORDERED: Folic Acid 1 MG TAB PO SCH (09:00)
[2018-06-14 09:01] LABS: ALT (SGPT) 15 U/L (8-55); AST (SGOT) 44 U/L (5-34); Albumin 3.1 g/dL (3.4-4.8); Alkaline Phosphatase 98 U/L (40-150); Anion Gap 13 mmol/L (10-20); BUN (Urea Nitrogen) 9 mg/dL (9.8-20.1); Bilirubin, Total 0.5 mg/dL (0.2-1.2); Calc. Creatinine Clearance 97 mL/min (70-130); Calcium 8.7 mg/dL (7.8-10.44); Carbon Dioxide 21 mmol/L (23-31); Chloride 108 mmol/L (98-107); Estimated GFR-MDRD Greater than 90; Globulin 2.2 g/dL (2.4-3.5); Glucose 129 mg/dL (80-115); Magnesium 1.3 mg/dL (1.6-2.6); Potassium 4.6 mmol/L (3.5-5.1); Protein, Total 5.3 g/dL (6.0-8.3); Sodium 137 mmol/L (136-145)
[2018-06-14 09:25] LABS: Folate (Folic Acid) 4.6 ng/mL (7.0-31.4)
[2018-06-14] MEDS ORDERED: Magnesium Sulfate 4 GM in Sodium Chloride 0.9% 250 ML 250 ML IVPB SCH (09:30)
[2018-06-14] MEDS ORDERED: Potassium Phosphate 30 MMOL in Sodium Chloride 0.9% 500 ML IVPB SCH (09:30)
[2018-06-14 10:56] LABS: Band 16 % (5-11); Hemoglobin 7.6 g/dL (12.0-16.0); Lymphocytes 26 % (21-51); MDiff Complete? YES; Mean Corpuscular HGB CONC 32.7 g/dL (32.0-36.0); Mean Corpuscular Hemoglobin 33.8 pg (27.0-31.0); Mean Platelet Volume 7.9 fL (7.4-10.4); Monocytes 10 % (0-10); Neutrophil 40 % (42-75); Platelet Count 138 thou/uL (130-400); Platelet Morphology Comment Appears Adequate; Polychromasia SLIGHT = 2-3 cells (100X) (0-2/hpf); RBC Distribution Width 15.4 % (11.5-14.5); Reactive Lymphocytes 8 % (0-10); Red Blood Cell (RBC) Count 2.23 mill/uL (4.20-5.40); White Blood Cell (WBC) Count 1.7 thou/uL (4.8-10.8)
--- NOTE | 2018-06-14 18:39 | PDOC.PN ---
- Subjective Encounter Start Date: 06/14/18 Encounter Start Time: 12:00 Patient seen and examined for Gen weakness. Feels better. Appetite improving. No fever/chills. No new complaints. No overnight events - Objective MAR Reviewed: Yes Vital Signs & Weight: Vital Signs (12 hours) Temp Pulse Resp BP Pulse Ox 06/14/18 12:29 98.3 F 100 18 110/74 100 06/14/18 08:00 100 06/14/18 07:50 98.8 F 100 20 120/75 100 Weight Weight 147 lb 8 oz I&O: 06/13/18 06/14/18 06/15/18 06:59 06:59 06:59 Intake Total 2180 2384 960 Balance 2180 2384 960 Result Diagrams: 06/14/18 08:08 06/14/18 08:08 Phys Exam - Physical Examination Constitutional: NAD Respiratory: no wheezing, no rhonchi Cardiovascular: RRR, no rub Gastrointestinal: soft, non-tender, positive bowel sounds Musculoskeletal: no edema Dx/Plan - Plan DVT proph w/SCDs 1. Gen weakness - multifactorial 2. Electrolyte abn (Hypomagnesemia/Hypophosphatemia/Hypokalemia) 3. Chronic Alcohol abuse - counselled. 4. Anemia due to chronic disease s/p 1 unit PRBC 5. Alcoholic/Starvation Ketoacidosis 6. Anxiety 7. HTN 8. Folic acid deficiency 9. Moderate Protein calorie malnutrition PLAN: Replace electrolytes PT eval Cont alcohol withdrawal protocol Cont Thiamine/folic acid and MVM Microbiology 06/14/18 09:40 Stool Stool Occult Blood (JORGE) - Final Laboratory Tests 06/12/18 06/12/18 06/13/18 12:32 14:46 10:47 POC Venous Potassium 2.5 L* Phosphorus Less than 1.0 L Magnesium 1.2 L Iron 49 L TIBC 134 L Ferritin Vitamin B12 Folate B-Hydroxybutyrate 7.46 H 06/13/18 06/13/18 06/14/18 10:47 10:48 08:08 POC Venous Potassium Phosphorus 1.0 L Magnesium 1.3 L Iron TIBC Ferritin 4860.97 H Vitamin B12 Folate B-Hydroxybutyrate 0.16 06/14/18 08:08 POC Venous Potassium Phosphorus Magnesium Iron TIBC Ferritin Vitamin B12 615 Folate 4.60 L B-Hydroxybutyrate Review of Systems - Review of Systems Respiratory: negative: Cough, Dry, Shortness of Breath, Hemoptysis, SOB with Excertion, Pleuritic Pain, Sputum, Wheezing Cardiovascular: negative: chest pain, palpitations, orthopnea, paroxysmal nocturnal dyspnea, edema, light headedness, other Gastrointestinal: negative: Nausea, Vomiting, Abdominal Pain, Diarrhea, Constipation, Melena, Hematochezia, Other - Medications/Allergies Allergies/Adverse Reactions: Allergies Allergy/AdvReac Type Severity Reaction Status Date / Time No Known Allergies Allergy Verified 06/12/18 21:50 Medications: Current Medications Albuterol/Ipratropium (Duoneb) 3 ml NEB [id number] PRN PRN Reason: SOB &/or Wheezing Folic Acid (Folvite) 1 mg PO BID [facility] Lorazepam (Ativan) 1 mg PO Q4H PRN PRN Reason: ASE >=9 Magnesium Chloride (Slow-Mag) 64 mg PO BID [facility] Multivitamins (Theragran) 1 tab PO DAILY [facility] Last Admin: 06/14/18 07:48 Dose: 1 tab Ondansetron HCl (Zofran) 4 mg IVP Q6H PRN PRN Reason: Nausea/Vomiting Phosphorus (Kphos Neutral) 500 mg PO TID-WM [facility] Last Admin: 06/14/18 17:47 Dose: 500 mg Pyridoxine HCl (Vitamin B 6) 50 mg PO DAILY [facility] Last Admin: 06/14/18 07:46 Dose: 50 mg Sodium Chloride (Flush - Normal Saline) 10 ml IVF PRN PRN PRN Reason: Saline Flush Thiamine HCl (Thiamine) 100 mg PO DAILY [facility] Last Admin: 06/14/18 07:46 Dose: 100 mg
[2018-06-14] MEDS: Magnesium Chloride 64 MG TAB PO SCH (20:02)
[2018-06-14] MEDS: Folic Acid 1 MG TAB PO SCH (20:02)
[2018-06-15] MEDS: pyridOXINE 50 MG (B6) TAB PO SCH (07:54)
[2018-06-15] MEDS: K-Phos Neutral 250 MG TAB PO SCH ×3 (07:54→17:04)
[2018-06-15] MEDS: Multivit, Therapeutic 1 TAB PO SCH (07:54)
[2018-06-15] MEDS: Thiamine 100 MG TAB PO SCH (07:54)
[2018-06-15] MEDS: Magnesium Chloride 64 MG TAB PO SCH ×2 (07:55→20:32)
[2018-06-15] MEDS: Folic Acid 1 MG TAB PO SCH ×2 (07:55→20:32)
[2018-06-15 08:27] LABS: Hemoglobin 7.6 g/dL (12.0-16.0); Mean Corpuscular HGB CONC 33.7 g/dL (32.0-36.0); Mean Corpuscular Hemoglobin 34.6 pg (27.0-31.0); Mean Platelet Volume 8.1 fL (7.4-10.4); Platelet Count 154 thou/uL (130-400); RBC Distribution Width 15.2 % (11.5-14.5); Red Blood Cell (RBC) Count 2.18 mill/uL (4.20-5.40); White Blood Cell (WBC) Count 2.1 thou/uL (4.8-10.8)
[2018-06-15 08:55] LABS: Anion Gap 14 mmol/L (10-20); BUN (Urea Nitrogen) 7 mg/dL (9.8-20.1); Calc. Creatinine Clearance 108 mL/min (70-130); Calcium 8.9 mg/dL (7.8-10.44); Carbon Dioxide 22 mmol/L (23-31); Chloride 107 mmol/L (98-107); Estimated GFR-MDRD Greater than 90; Glucose 106 mg/dL (80-115); Magnesium 1.2 mg/dL (1.6-2.6); Phosphorus 3.7 mg/dL (2.3-4.7); Potassium 3.9 mmol/L (3.5-5.1); Sodium 139 mmol/L (136-145)
[2018-06-15] MEDS ORDERED: Magnesium Sulfate 4 GM in Sodium Chloride 0.9% 250 ML 250 ML IVPB SCH (10:00)
[2018-06-15 12:21] LABS: Band 15 % (5-11); Lymphocytes 24 % (21-51); MDiff Complete? YES; Macrocytosis SLIGHT = 6-15 cells (100X) (0-5/hpf); Metamyelocyte 1 % (0-0); Monocytes 18 % (0-10); Myelocyte 2 % (0-0); Neutrophil 40 % (42-75); Ovalocytes SLIGHT = 2-5 cells (100X) (0-1/hpf); Platelet Morphology Comment Appears Adequate; Polychromasia MODERATE = 3-4 cells (100X) (0-2/hpf)
--- NOTE | 2018-06-15 20:52 | PDOC.PN ---
- Subjective Encounter Start Date: 06/15/18 Encounter Start Time: 12:00 Patient seen and examined for Gen weakness. Feels gen weak/fatigue. Overall feels somewhat better. No new complaints. No overnight events - Objective MAR Reviewed: Yes Vital Signs & Weight: Vital Signs (12 hours) Temp Pulse Resp BP Pulse Ox 06/15/18 19:42 98.7 F 104 H 20 115/79 96 06/15/18 16:07 98.8 F 105 H 20 115/74 94 L 06/15/18 11:11 97.6 F 96 18 129/85 99 Weight Admit Weight 147 lb 8 oz Weight 147 lb 8 oz I&O: 06/14/18 06/15/18 06/16/18 06:59 06:59 06:59 Intake Total 2384 1720 840 Balance 2384 1720 840 Result Diagrams: 06/15/18 07:42 06/15/18 07:42 Phys Exam - Physical Examination Constitutional: NAD Respiratory: no wheezing, no rhonchi Cardiovascular: RRR, no rub Gastrointestinal: soft, non-tender, positive bowel sounds Musculoskeletal: no edema Dx/Plan - Plan DVT proph w/SCDs 1. Gen weakness - multifactorial 2. Electrolyte abn (Hypomagnesemia/Hypophosphatemia/Hypokalemia) 3. Chronic Alcohol abuse - counselled. 4. Anemia due to chronic disease s/p 1 unit PRBC 5. Alcoholic/Starvation Ketoacidosis 6. Anxiety 7. HTN 8. Folic acid deficiency 9. Moderate Protein calorie malnutrition PLAN: Replace Magnesium [facility] Cont Ativan PRN Cont Thiamine/folic acid and MVM DC in 24 hr if stable Laboratory Tests 06/14/18 06/14/18 06/15/18 08:08 08:08 07:42 Phosphorus 1.0 L Magnesium 1.3 L 1.2 L Folate 4.60 L Review of Systems - Review of Systems Respiratory: negative: Cough, Dry, Shortness of Breath, Hemoptysis, SOB with Excertion, Pleuritic Pain, Sputum, Wheezing Cardiovascular: negative: chest pain, palpitations, orthopnea, paroxysmal nocturnal dyspnea, edema, light headedness, other - Medications/Allergies Allergies/Adverse Reactions: Allergies Allergy/AdvReac Type Severity Reaction Status Date / Time No Known Allergies Allergy Verified 06/12/18 21:50 Medications: Current Medications Albuterol/Ipratropium (Duoneb) 3 ml NEB [id number] PRN PRN Reason: SOB &/or Wheezing Folic Acid (Folvite) 1 mg PO BID [facility] Last Admin: 06/15/18 20:32 Dose: 1 mg Lorazepam (Ativan) 1 mg PO Q4H PRN PRN Reason: ASE >=9 Magnesium Chloride (Slow-Mag) 64 mg PO BID [facility] Last Admin: 06/15/18 20:32 Dose: 64 mg Multivitamins (Theragran) 1 tab PO DAILY [facility] Last Admin: 06/15/18 07:54 Dose: 1 tab Ondansetron HCl (Zofran) 4 mg IVP Q6H PRN PRN Reason: Nausea/Vomiting Phosphorus (Kphos Neutral) 500 mg PO TID-WM [facility] Last Admin: 06/15/18 17:04 Dose: 500 mg Pyridoxine HCl (Vitamin B 6) 50 mg PO DAILY [facility] Last Admin: 06/15/18 07:54 Dose: 50 mg Sodium Chloride (Flush - Normal Saline) 10 ml IVF PRN PRN PRN Reason: Saline Flush Thiamine HCl (Thiamine) 100 mg PO DAILY [facility] Last Admin: 06/15/18 07:54 Dose: 100 mg
[2018-06-16 07:25] LABS: Magnesium 1.3 mg/dL (1.6-2.6); Phosphorus 6.4 mg/dL (2.3-4.7); Potassium 3.8 mmol/L (3.5-5.1)
[2018-06-16] MEDS: Multivit, Therapeutic 1 TAB PO SCH (08:49)
[2018-06-16] MEDS: Thiamine 100 MG TAB PO SCH (08:49)
[2018-06-16] MEDS: K-Phos Neutral 250 MG TAB PO SCH (08:50)
[2018-06-16] MEDS: Folic Acid 1 MG TAB PO SCH ×2 (08:50→20:01)
[2018-06-16] MEDS: Magnesium Chloride 64 MG TAB PO SCH (08:50)
[2018-06-16] MEDS: pyridOXINE 50 MG (B6) TAB PO SCH (08:50)
[2018-06-16] MEDS ORDERED: Magnesium Sulfate 4 GM in Sodium Chloride 0.9% 250 ML 250 ML IVPB SCH (09:15)
[2018-06-16] MEDS ORDERED: Loperamide HCl 2 MG CAP PO PRN (10:34)
[2018-06-16] MEDS ORDERED: Saccharomyces boulardii 250 MG CAP PO SCH (13:45)
[2018-06-16] MEDS: Propranolol 10 MG TAB PO SCH ×2 (15:10→20:01)
--- NOTE | 2018-06-16 22:37 | PDOC.PN ---
- Subjective Encounter Start Date: 06/16/18 Encounter Start Time: 13:00 Patient seen and examined for Gen weakness. Several episodes of diarrhea. No new complaints. No overnight events - Objective MAR Reviewed: Yes Vital Signs & Weight: Vital Signs (12 hours) Temp Pulse Resp BP BP Pulse Ox 06/16/18 20:00 100 06/16/18 16:52 97.9 F 95 16 122/79 100 06/16/18 16:00 122/79 06/16/18 12:39 97.9 F 96 12 115/73 96 06/16/18 12:00 115/73 Weight Admit Weight 147 lb 8 oz Weight 147 lb 8 oz I&O: 06/15/18 06/16/18 06/17/18 06:59 06:59 06:59 Intake Total 1720 840 925 Balance 1720 840 925 Result Diagrams: 06/15/18 07:42 06/16/18 06:30 Phys Exam - Physical Examination Constitutional: NAD Respiratory: no wheezing, no rhonchi Cardiovascular: RRR, no rub Gastrointestinal: soft, non-tender, positive bowel sounds Musculoskeletal: no edema Neurological: moves all 4 limbs Dx/Plan - Plan 1. Gen weakness - multifactorial 2. Electrolyte abn (Hypomagnesemia/Hypophosphatemia/Hypokalemia) 3. Diarrhea + 4. Anemia due to chronic disease s/p 1 unit PRBC 5. Alcoholic/Starvation Ketoacidosis 6. Anxiety 7. HTN 8. Folic acid deficiency 9. Chronic Alcohol abuse with alcohol withdrawal / Moderate Protein calorie malnutrition PLAN: 4 gm IVPB Magnesium Add low dose Inderal due to gen tremors (Alcohol withdrawal) Cont Ativan /Thiamine/folic acid and MVM Stool w/u Cont other meds as below Laboratory Tests 06/16/18 06:30 Magnesium 1.3 L Review of Systems - Review of Systems Respiratory: negative: Cough, Dry, Shortness of Breath, Hemoptysis, SOB with Excertion, Pleuritic Pain, Sputum, Wheezing Cardiovascular: negative: chest pain, palpitations, orthopnea, paroxysmal nocturnal dyspnea, edema, light headedness, other - Medications/Allergies Allergies/Adverse Reactions: Allergies Allergy/AdvReac Type Severity Reaction Status Date / Time No Known Allergies Allergy Verified 06/12/18 21:50 Medications: Current Medications Albuterol/Ipratropium (Duoneb) 3 ml NEB [id number] PRN PRN Reason: SOB &/or Wheezing Folic Acid (Folvite) 1 mg PO BID [facility] Last Admin: 06/16/18 20:01 Dose: 1 mg Magnesium Sulfate 2 gm/ Sodium (Chloride) 104 mls @ 100 mls/hr IVPB [facility] Loperamide HCl (Imodium) 2 mg PO PRN PRN PRN Reason: Diarrhea/Loose Stools Last Admin: 06/16/18 10:42 Dose: 2 mg Lorazepam (Ativan) 1 mg PO Q4H PRN PRN Reason: ASE >=9 Multivitamins (Theragran) 1 tab PO DAILY [facility] Last Admin: 06/16/18 08:49 Dose: 1 tab Ondansetron HCl (Zofran) 4 mg IVP Q6H PRN PRN Reason: Nausea/Vomiting Propranolol HCl (Inderal) 10 mg PO TID [facility] Last Admin: 06/16/18 20:01 Dose: 10 mg Pyridoxine HCl (Vitamin B 6) 50 mg PO DAILY [facility] Last Admin: 06/16/18 08:50 Dose: 50 mg Saccharomyces Boulardii (Florastor) 250 mg PO DAILY [facility] Sodium Chloride (Flush - Normal Saline) 10 ml IVF PRN PRN PRN Reason: Saline Flush Thiamine HCl (Thiamine) 100 mg PO DAILY [facility] Last Admin: 06/16/18 08:49 Dose: 100 mg
[2018-06-16] MEDS ORDERED: Magnesium 2 GM/50 ML 2 GM in Premix Bag 1 BAG IVPB SCH (22:40)
[2018-06-17] MEDS: Multivit, Therapeutic 1 TAB PO SCH (07:46)
[2018-06-17] MEDS: Thiamine 100 MG TAB PO SCH (07:46)
[2018-06-17] MEDS: Folic Acid 1 MG TAB PO SCH (07:46)
[2018-06-17] MEDS: Propranolol 10 MG TAB PO SCH (07:47)
[2018-06-17] MEDS: pyridOXINE 50 MG (B6) TAB PO SCH (07:47)
[2018-06-17] MEDS ORDERED: Saccharomyces boulardii 250 MG CAP PO SCH (09:00)
[2018-06-17 11:36] VITALS: BP 116/76; TEMP 97.6
--- NOTE | 2018-06-17 16:29 | DIS ---
DATE OF ADMISSION: 06/12/2018 DATE OF DISCHARGE: 06/17/2018 DISCHARGE DISPOSITION: Home with [facility]. ALLERGIES: NO KNOWN DRUG ALLERGIES. DISCHARGE MEDICATIONS: 1. Metoprolol tartrate 25 mg b.i.d. 2. Vitamin B12 of 1000 mcg daily. 3. Folic acid 1 mg daily. 4. Slow-Mag 64 mg 3 times daily for next 10 days. 5. Multivitamin 1 tablet daily. 6. Potassium chloride 10 mEq daily for next 10 days. 7. Vitamin B1 (Thiamine 100 mg) daily. A repeat basic metabolic profile with magnesium and phosphorus is recommended. Primary care physician advised to follow. The patient was seen and examined on the day of discharge. Denies any new complaints. No chest pain, shortness of breath, or palpitations. BRIEF HOSPITAL COURSE: The patient is a 63-year-old female with chronic alcoholism, presented to the hospital with generalized weakness and shortness of breath. Please refer to the history and physical for further details. The patient was admitted to the hospital with a diagnosis of generalized weakness along with shortness of breath and metabolic acidosis. Her ketones on admission were 7.46 with multiple electrolyte abnormalities. Her magnesium was 0.7, potassium was 2.5, and phosphorus was less than 1.0. She also was found to have significant anemia with hemoglobin of 6.9, and reticulocyte of 0.2. Her iron profile showed total iron of 49 with TIBC of 134, ferritin of 4860 with normal vitamin B12 level. A folic acid was 4.6. The patient was placed on alcohol withdrawal protocol with thiamine and folic acid, multivitamins. Electrolytes have been replaced. Her magnesium on the day of discharge is 1.8. Stool for stool for occult blood was negative. She also had some diarrhea in the last 1 or 2 days of discharge. A stool workup; however, was negative. The diarrhea was probably secondary to mighty shakes. An echocardiogram was done that showed ejection fraction of greater than 60% to 65% with diastolic dysfunction, trace tricuspid regurgitation, trace mitral regurgitation. She was extensively counseled on alcohol cessation and lifestyle modification. Ketones have improved to 0.16. She appears stable for discharge. Home health care through [facility] will be arranged. FINAL DIAGNOSES: 1. Generalized weakness with dyspnea on exertion, multifactorial. 2. Multiple electrolyte abnormalities including severe hypomagnesemia, hypokalemia and hypophosphatemia. 3. Noninfectious diarrhea probably secondary to mighty shake. 4. Anemia secondary to chronic disease, status post 1 unit packed red blood cells. Stool for occult blood was negative. 5. Alcoholic/starvation ketoacidosis. 6. Anxiety. 7. Folic acid deficiency. 8. Hypertension. 9. Chronic alcohol abuse with mild alcohol withdrawal. 10. Moderate protein-calorie malnutrition. PLAN: Plan of care was discussed with the patient in detail. She stated understanding. Job ID: [id number]
--- NOTE | 2018-06-17 18:06 | EKG ---
Test Reason : WEWAKNESS Blood Pressure : / mmHG Vent. Rate : 109 BPM Atrial Rate : 109 BPM P-R Int : 138 ms QRS Dur : 086 ms QT Int : 312 ms P-R-T Axes : 024 018 060 degrees QTc Int : 420 ms Poor data quality, interpretation may be adversely affected Sinus tachycardia Septal infarct , age undetermined Abnormal ECG Poor Baseline Confirmed by MARIA VICTORIA BARBA DO ([id number]), editorial clerk TRESSA BOSTON ([id number] on 06/17/2018 6:05:35 PM Referred By: Confirmed By:MARIA VICTORIA BARBA DO
== END 2018-06-17 14:03 | disposition home health service (06) | DRG 897 ==
LOC: ERS 11:05 → T4-A 15:09
PROVIDERS: ADMIT Family Medicine; ATTEND Family Medicine
PROC: 30233N1 Transfusion of Nonautologous Red Blood Cells into Peripheral Vein, Percutaneous Approach (ICD-10-PCS; principal; 2018-06-13)
DX: F10.239 Alcohol dependence with withdrawal, unspecified (principal); E87.2 Acidosis; E44.0 Moderate protein-calorie malnutrition; R06.02 Shortness of breath; F32.9 Major depressive disorder, single episode, unspecified; E87.6 Hypokalemia; E83.42 Hypomagnesemia; E83.39 Other disorders of phosphorus metabolism; F41.9 Anxiety disorder, unspecified; D63.1 Anemia in chronic kidney disease; N18.9 Chronic kidney disease, unspecified; I12.9 Hypertensive chronic kidney disease with stage 1 through stage 4 chronic kidney disease, or unspecified chronic kidney disease; E53.8 Deficiency of other specified B group vitamins; K52.9 Noninfective gastroenteritis and colitis, unspecified; Z87.891 Personal history of nicotine dependence
CPT/HCPCS: 36415; 36430; 71275; 80048; 80053; 82010; 82274; 82330; 82607; 82728; 82746; 82803; 83540; 83550; 83630; 83735; 83880; 84100; 84132; 84484; 85025; 85046; 86850; 86900; 86901; 87324; 87328; 87329; 87449; 93005; 93306; J2060; J3411; J3475; J3480; J7042; J7050; P9016; Q9966

== ENCOUNTER 2018-09-29 10:38 | Inpatient (IN) | payer BC ==
[2018-09-29] MEDS ORDERED: Ondansetron PF 4 MG/2 ML Vial ONE (11:29)
[2018-09-29] MEDS ORDERED: Pantoprazole 40 MG VIAL ONE (11:29)
[2018-09-29 11:36] LABS: ALT (SGPT) 11 U/L (8-55); AST (SGOT) 21 U/L (5-34); Albumin 4.3 g/dL (3.4-4.8); Alkaline Phosphatase 104 U/L (40-150); Anion Gap 29 mmol/L (10-20); BUN (Urea Nitrogen) 15 mg/dL (9.8-20.1); Bilirubin, Total 1.3 mg/dL (0.2-1.2); CK (CPK) 54 U/L (29-168); Calc. Creatinine Clearance 0 mL/min (70-130); Calcium 9.3 mg/dL (7.8-10.44); Carbon Dioxide 18 mmol/L (23-31); Chloride 93 mmol/L (98-107); Estimated GFR-MDRD 56; Globulin 2.4 g/dL (2.4-3.5); Glucose 118 mg/dL (80-115); Hemoglobin 6.6 g/dL (12.0-16.0); Lipase 170 U/L (8-78); Mean Corpuscular HGB CONC 32.6 g/dL (32.0-36.0); Mean Platelet Volume 8.4 fL (7.4-10.4); Platelet Count 222 thou/uL (130-400); Potassium 3.1 mmol/L (3.5-5.1); Protein, Total 6.7 g/dL (6.0-8.3); Red Blood Cell (RBC) Count 1.78 mill/uL (4.20-5.40); Sodium 137 mmol/L (136-145)
[2018-09-29 11:37] LABS: Band 11 % (5-11); Lymphocytes 31 % (21-51); MDiff Complete? YES; Macrocytosis SLIGHT = 6-15 cells (100X) (0-5/hpf); Monocytes 6 % (0-10); Neutrophil 51 % (42-75); Reactive Lymphocytes 1 % (0-10)
[2018-09-29] MEDS ORDERED: ISOVUE-370 76%-LOCM 1 ML ONE (12:17)
--- NOTE | 2018-09-29 12:40 | CT ---
CT Abdomen Pelvis W Con: 09/29/2018 10:57 AM CLINICAL INFORMATION: Weakness and loss of appetite for one month COMPARISON: 02/18/2012 TECHNIQUE: Multiple contiguous axial images were obtained and a CT of the abdomen and pelvis with IV contrast. C oronal reformats were performed. FINDINGS: Lower Chest: within normal limits. Abdomen: Liver: Diffuse fatty infiltration there is a stable well-circumscribed 2.1 cm peripherally calcified lesion adjacent to the gallbladder. This may emanate from the liver. Bile Ducts: Normal caliber. Gallbladder: Calcified gallstones in the dependent aspect. No gallbladder wall thickening. Pancreas: within normal limits. Spleen: within normal limits. Adrenals: within normal limits. Kidneys: within normal limits. Pelvis: Reproductive Organs: No pelvic masses. Ureters: within normal limits. Bladder: within normal limits. Peritoneum: No ascites or free air, no fluid collection. Bowel: Normal caliber. Normal appendix. Scattered diverticula in the colon. Mesentery and Retroperitoneum: No enlarged mesenteric or retroperitoneal lymph nodes. Vessels: Atherosclerotic calcifications. Abdominal Wall: within normal limits. Bones: Degenerative changes in the spine. IMPRESSION: 1. Cholelithiasis 2. Fatty liver 3. Diverticulosis 4. Stable peripherally calcified lesion adjacent to the liver and gallbladder.
[2018-09-29 15:28] LABS: INR-International Normal Ratio 1.1; PTT 30.7 SEC (22.9-36.1); Prothrombin Time 14.6 SEC (12.0-14.7)
[2018-09-29] MEDS ORDERED: Potassium Chloride 20 MEQ TAB ONE (16:27)
[2018-09-29] MEDS ORDERED: Senokot S 8.6-50 MG TAB PO PRN (16:43)
[2018-09-29] MEDS ORDERED: Acetaminophen 325 MG TAB PO PRN (16:43)
[2018-09-29 18:16] LABS: Uric Acid 11.6 mg/dL (2.6-6.0)
[2018-09-29] MEDS ORDERED: Potassium Chloride 20 MEQ in Premix Bag 1 BAG IVPB SCH (19:30)
[2018-09-29] MEDS: Pantoprazole 40 MG VIAL IVP SCH (20:07)
[2018-09-29] MEDS: Thiamine HCl 200 MG/2 ML VIAL SLOW IVP SCH (20:12)
[2018-09-29] MEDS: Sodium Chloride 0.9% 1,000 ML IV SCH (20:15)
--- NOTE | 2018-09-29 20:24 | HP ---
CHIEF COMPLAINT: Shortness of breath on exertion, generalized weakness. HISTORY OF PRESENT ILLNESS: The patient is a very pleasant 63-year-old female with a past medical history of alcohol use, hypertension, and gout, who presented to the hospital with complains of shortness of breath on exertion for the past couple of weeks. The patient states that she lives with her . She has noticed some shortness of breath on exertion, which has progressed for the past couple of weeks. The patient also complains of generalized weakness, which also has progressed for the past couple of weeks. She states that she has lost some weight. She could not quantify the weight loss in the last month. She also states that her appetite has worsened in the past few months. She stated that she tried drinking boost, which gave her significant amount of diarrhea and also caused her to be very nauseated, however, no emesis. The patient denies any fevers or chills. She denies any UTI like symptoms. She denies any chest pain or chest pressure. The patient states that she was on antibiotics about 2 months ago for some cellulitis in her left third toe. The patient stated that she has not been drinking any alcoholic beverages. Her last drink was on Tuesday. 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 PAST MEDICAL HISTORY: As of the following. She has a history of, 1. Hypertension. 2. Anxiety. 3. Depression. She also has a history of alcohol use. PAST SURGICAL HISTORY: She has had a left ankle surgery. She has had a hysteroscopy in 2011. SOCIAL HISTORY: She has a history of alcoholism in the past, but the patient states that she has not been drinking anything since sometimes this year. She did have 1 alcoholic beverage as I mentioned earlier. She denies any drug use. She denies any smoking. She lives with her and is a full code. FAMILY HISTORY: No history of heart disease, cancers, or strokes. ALLERGIES: SHE HAS NO KNOWN DRUG ALLERGIES. MEDICATIONS: As of the followin. Metoprolol 25 mg b.i.d. 2. Potassium 10 mEq daily. 3. Vitamin B12 of 1000 mcg daily. 4. Folic acid 1 daily. 5. Magnesium 64 mg p.o. t.i.d. REVIEW OF SYSTEMS: All negative except for the ones mentioned above in the HPI. PHYSICAL EXAMINATION: VITAL SIGNS: As of the following; temperature of 98.6, respirations 16, 100% on room air, pulse of 80, blood pressure 112/70. GENERAL: She is awake, alert, and oriented x3, does not appear in distress. HEENT: Normocephalic and atraumatic. Her conjunctivae are pale. Pupils are equal and reactive to light. CV: S1 and S2 present. No murmurs, rubs, or gallops. LUNGS: Clear to auscultation. No rhonchi or wheezes noted. ABDOMEN: Soft and nontender. Bowel sounds are present x2. EXTREMITIES: No edema. Pedal pulses present x2. Skin; she does have on her third toe a significant area of redness with some old blood and what appears to be either gout versus lipoma that is felt on her third toe of her left foot. NEUROLOGIC: No focal deficits noted. SKIN: As I mentioned earlier. No other cuts, lesions, or bruises noted. LABORATORY RESULTS: Sodium of 137, potassium of 3.1, BUN of 15, creatinine of 1.0, glucose of 118. Total bilirubin is 1.3. Her uric acid is 11.6. Her CBC; WBCs of 3.0, hemoglobin of 6.6, hematocrit of 20.2. Her platelet count is 222. She did have a CT of abdomen and pelvis, which did not indicate any acute abnormalities indicating cholelithiasis, fatty liver, or diverticulosis, and stable peripheral calcified lesions adjacent to the liver and gallbladder. ASSESSMENT AND PLAN: The patient is a very pleasant 63-year-old female, who presents to the hospital with generalized weakness. 1. Acute anemia, unclear if this is secondary to acute blood loss versus production versus marrow fibrosis. I will check iron studies. I will do a fecal occult on this patient. She denies any use of ibuprofen or Advil. I will type and screen her and also transfuse her 1 unit of packed red blood cells. Also, I will consult GI for further evaluation on this patient. 2. Shortness of breath and generalized weakness. This could be secondary to her anemia. She did have an echocardiogram, which was earlier this year, in May of 2018, that indicated an ejection fraction of 60% to 65%. She had a trace mitral regurgitation, a structurally normal aortic valve, and trace tricuspid regurgitation. Her EKG did not show any acute abnormalities. 3. History of alcohol abuse. The patient states that she has not been drinking. I will check her alcohol level. 4. Deep venous thrombosis prophylaxis. We will put the patient on some sequential compression devices. Job ID: [id number]
[2018-09-29 22:12] VITALS: BMI 26.0
[2018-09-30] MEDS: Sodium Chloride 0.9% 10 ML ONE (00:47)
[2018-09-30] MEDS ORDERED: Sodium Chloride 0.9% 10 ML ONE ×2 (00:56→08:35)
[2018-09-30 05:56] LABS: Hemoglobin 5.8 g/dL (12.0-16.0); Mean Corpuscular HGB CONC 33.3 g/dL (32.0-36.0); Mean Corpuscular Hemoglobin 35.3 pg (27.0-31.0); Mean Platelet Volume 8.5 fL (7.4-10.4); Platelet Count 175 thou/uL (130-400); RBC Distribution Width 19.1 % (11.5-14.5); Red Blood Cell (RBC) Count 1.63 mill/uL (4.20-5.40); White Blood Cell (WBC) Count 2.4 thou/uL (4.8-10.8)
[2018-09-30 06:18] LABS: Anion Gap 18 mmol/L (10-20); BUN (Urea Nitrogen) 10 mg/dL (9.8-20.1); Calc. Creatinine Clearance 78 mL/min (70-130); Calcium 8.8 mg/dL (7.8-10.44); Carbon Dioxide 22 mmol/L (23-31); Chloride 98 mmol/L (98-107); Estimated GFR-MDRD 76; Glucose 98 mg/dL (80-115); Sodium 135 mmol/L (136-145)
[2018-09-30 06:29] LABS: Potassium 2.8 mmol/L (3.5-5.1)
[2018-09-30 06:30] LABS: Anisocytosis SLIGHT = 6-15 cells (100X) (0-5/hpf); Band 13 % (5-11); Eosinophils 1 % (0-10); Lymphocytes 31 % (21-51); MDiff Complete? YES; Macrocytosis SLIGHT = 6-15 cells (100X) (0-5/hpf); Monocytes 10 % (0-10); Neutrophil 45 % (42-75); Platelet Morphology Comment Appears Adequate
[2018-09-30] MEDS: Cyanocobalamin (Vitamin B-12) 1,000 MCG TAB PO SCH (08:40)
[2018-09-30] MEDS: Pantoprazole 40 MG VIAL IVP SCH ×2 (08:40→21:04)
[2018-09-30] MEDS: Folic Acid 1 MG TAB PO SCH (08:40)
[2018-09-30] MEDS: Multivit, Therapeutic 1 TAB PO SCH (08:40)
[2018-09-30] MEDS ORDERED: Prevnar 13-Val Conj/PF 0.5 ML SYRINGE IM ONE (09:00)
[2018-09-30] MEDS ORDERED: Thiamine 100 MG TAB PO SCH (09:00)
[2018-09-30] MEDS: Pot Chloride/Pot Bicarb/Cit Ac 25 mEq Effervescent Tablet PO SCH (11:51)
[2018-09-30 14:15] LABS: Hemoglobin 7.6 g/dL (12.0-16.0)
[2018-09-30] MEDS: Sodium Chloride 0.9% 1,000 ML IV SCH (14:15)
--- NOTE | 2018-09-30 16:09 | PDOC.PN ---
- Subjective Encounter Start Date: 09/30/18 Encounter Start Time: 10:00 Subjective: pt up in bed no complains - Objective Resuscitation Status - Order Detail: 09/29/18 16:43 Resuscitation Status Routine Resuscitation Status: FULL: Full Resuscitation Vital Signs & Weight: Vital Signs (12 hours) Temp Pulse Pulse Resp BP BP BP 09/30/18 12:37 99.1 F 94 20 114/66 09/30/18 09:47 98.3 F 97 16 102/57 L 09/30/18 09:24 99 F 101 H 16 102/57 L 09/30/18 08:05 98.7 F 97 16 108/62 Pulse Ox 09/30/18 12:37 97 09/30/18 09:47 99 09/30/18 09:24 97 09/30/18 08:05 100 Weight Admit Weight 147 lb Weight 147 lb I&O: 09/29/18 09/30/18 10/01/18 06:59 06:59 06:59 Intake Total 370 300 Balance 370 300 Result Diagrams: 09/30/18 14:02 09/30/18 05:24 Phys Exam - Physical Examination Neck: no nodes, no JVD, supple, full ROM Respiratory: no wheezing, no rales, no rhonchi, clear to auscultation bilateral Cardiovascular: RRR, no significant murmur, no rub, gallop, irregular Gastrointestinal: soft, non-tender, no distention, positive bowel sounds Neurological: non-focal, normal sensation, moves all 4 limbs Dx/Plan (1) General weakness Code(s): R53.1 - WEAKNESS Status: Acute (2) Acute anemia Code(s): D64.9 - ANEMIA, UNSPECIFIED Status: Acute (3) HTN (hypertension) Code(s): I10 - ESSENTIAL (PRIMARY) HYPERTENSION Status: Acute - Plan s/p 2 units of blood hh stable -: will continue ppi, pt to get a egd in am * . Review of Systems - Review of Systems Respiratory: negative: Cough, Dry, Shortness of Breath, Hemoptysis, SOB with Excertion, Pleuritic Pain, Sputum, Wheezing Cardiovascular: negative: chest pain, palpitations, orthopnea, paroxysmal nocturnal dyspnea, edema, light headedness, other Gastrointestinal: negative: Nausea, Vomiting, Abdominal Pain, Diarrhea, Constipation, Melena, Hematochezia, Other - Medications/Allergies Allergies/Adverse Reactions: Allergies Allergy/AdvReac Type Severity Reaction Status Date / Time No Known Allergies Allergy Verified 06/12/18 21:50 Medications: Current Medications Acetaminophen (Tylenol) 650 mg PO Q4H PRN PRN Reason: Headache/Fever/Mild Pain (1-3) Cyanocobalamin (Vitamin B-12) 1,000 mcg PO DAILY [facility] Last Admin: 09/30/18 08:40 Dose: 1,000 mcg Folic Acid (Folvite) 1 mg PO DAILY [facility] Last Admin: 09/30/18 08:40 Dose: 1 mg Sodium Chloride (Normal Saline 0.9%) 1,000 mls @ 50 mls/hr IV .Q20H [facility] Last Admin: 09/30/18 14:15 Dose: Not Given Multivitamins (Theragran) 1 tab PO DAILY [facility] Last Admin: 09/30/18 08:40 Dose: 1 tab Pantoprazole Sodium (Protonix) 40 mg IVP Q12HR [facility] Last Admin: 09/30/18 08:40 Dose: 40 mg Potassium Bicarb/Potassium Chloride (K-Lyte Cl) 25 meq PO QAM-WM [facility] Last Admin: 09/30/18 11:51 Dose: 25 meq Senna/Docusate Sodium (Senokot S) 2 tab PO BIDPRN PRN PRN Reason: Constipation Thiamine HCl (Thiamine Hcl) 100 mg SLOW IVP Q24HR [facility] Last Admin: 09/29/18 20:12 Dose: 100 mg
[2018-09-30] MEDS: Thiamine HCl 200 MG/2 ML VIAL SLOW IVP SCH (19:53)
[2018-10-01] MEDS: Sodium Chloride 0.9% 1,000 ML IV SCH ×3 (00:38→23:25)
[2018-10-01 06:08] LABS: Anion Gap 11 mmol/L (10-20); BUN (Urea Nitrogen) 10 mg/dL (9.8-20.1); Calc. Creatinine Clearance 92 mL/min (70-130); Calcium 8.5 mg/dL (7.8-10.44); Carbon Dioxide 28 mmol/L (23-31); Chloride 101 mmol/L (98-107); Estimated GFR-MDRD Greater than 90; Glucose 109 mg/dL (80-115); Potassium 3.3 mmol/L (3.5-5.1); Sodium 137 mmol/L (136-145)
[2018-10-01 08:51] LABS: Hemoglobin 6.4 g/dL (12.0-16.0); Mean Corpuscular Hemoglobin 34.7 pg (27.0-31.0); Platelet Count 174 thou/uL (130-400); RBC Distribution Width 19.6 % (11.5-14.5); Red Blood Cell (RBC) Count 1.85 mill/uL (4.20-5.40); White Blood Cell (WBC) Count 2.1 thou/uL (4.8-10.8)
[2018-10-01 08:52] LABS: Band 11 % (5-11); Lymphocytes 37 % (21-51); MDiff Complete? YES; Monocytes 9 % (0-10); Neutrophil 42 % (42-75)
[2018-10-01] MEDS: Cyanocobalamin (Vitamin B-12) 1,000 MCG TAB PO SCH (09:06)
[2018-10-01] MEDS: Pot Chloride/Pot Bicarb/Cit Ac 25 mEq Effervescent Tablet PO SCH (09:06)
[2018-10-01] MEDS: Multivit, Therapeutic 1 TAB PO SCH (09:06)
[2018-10-01] MEDS: Folic Acid 1 MG TAB PO SCH (09:06)
[2018-10-01] MEDS: Pantoprazole 40 MG VIAL IVP SCH ×2 (09:07→20:49)
[2018-10-01] MEDS ORDERED: Ondansetron HCl/PF 4 MG/2 ML Vial IVP PRN (09:33)
[2018-10-01] MEDS ORDERED: Fentanyl 100 MCG/2 ML VIAL ONE (10:17)
[2018-10-01] MEDS ORDERED: EPINEPHrine 1 MG/ML AMP ONE (11:57)
[2018-10-01] MEDS ORDERED: EPINEPHrine 1 MG/10 ML Abboject SYRINGE ONE (11:57)
[2018-10-01] MEDS ORDERED: ePHEDrine/0.9% NaCl/PF SYRINGE 50 mg/10 ml ONE (11:57)
--- NOTE | 2018-10-01 12:03 | OP ---
DATE OF PROCEDURE: 10/01/2018 PROCEDURE PERFORMED: Esophagogastroduodenoscopy with biopsy. PREOPERATIVE DIAGNOSES: Anemia, occult gastrointestinal bleeding. She tells me she had a colonoscopy [address] [facility], which was found to be negative. The patient underwent EGD. POSTOPERATIVE DIAGNOSES: 1. Small hiatal hernia. 2. Normal esophageal mucosa. 3. Gastritis of the gastric antrum and gastric body. 4. Normal duodenum. Biopsies obtained from the descending duodenum and also from the gastric antrum and gastric body. DESCRIPTION OF PROCEDURE: The patient was placed on her left lateral position and was given sedation by Anesthesia Department. A Pentax video gastroscope under direct vision passed down the oropharynx past the GE junction into the stomach. The vocal cords appeared very healthy. The esophageal mucosa appeared normal throughout. The GE junction, no pathology. She had a small hiatal hernia. Retroflexion failed to show any pathology in the fundus or cardia. The gastric body, no pathology. The incisura angularis, no pathology. The gastric antrum showed patchy areas of mucosal edema and erythema. Biopsy was obtained of the gastric and gastric body. The duodenal bulb and descending duodenum, no pathology. Random biopsy obtained of the descending duodenum. The stomach decompressed and the scope removed. OVERALL IMPRESSION: Negative esophagogastroduodenoscopy, except for mild gastritis. RECOMMENDATIONS: 1. Iron supplement. 2. PPI. 3. Follow up H and H. Job ID: [id number]
[2018-10-01] MEDS ORDERED: PROPOFOL 200 MG/20 ML VIAL ONE (13:16)
--- NOTE | 2018-10-01 19:02 | PDOC.PN ---
- Subjective Encounter Start Date: 10/01/18 Encounter Start Time: 08:00 Pt seen for followup re: anemia. Says she feels weak. - Objective Resuscitation Status - Order Detail: 09/29/18 16:43 Resuscitation Status Routine Resuscitation Status: FULL: Full Resuscitation MAR Reviewed: Yes Vital Signs & Weight: Vital Signs (12 hours) Temp Pulse Resp BP Pulse Ox 10/01/18 11:51 98.3 F 88 20 121/75 100 10/01/18 08:00 98.4 F 90 20 96/56 L 99 Weight Admit Weight 147 lb Weight 147 lb I&O: 09/30/18 10/01/18 10/02/18 06:59 06:59 06:59 Intake Total 370 1370 1860 Balance 370 1370 1860 Result Diagrams: 10/05/18 05:17 10/04/18 06:46 Additional Labs: Labs reviewed by me Phys Exam - Physical Examination Constitutional: NAD HEENT: moist MMs Neck: supple Respiratory: clear to auscultation bilateral Cardiovascular: RRR Gastrointestinal: soft Neurological: moves all 4 limbs Psychiatric: normal affect Dx/Plan (1) Acute anemia Code(s): D64.9 - ANEMIA, UNSPECIFIED Status: Acute (2) HTN (hypertension) Code(s): I10 - ESSENTIAL (PRIMARY) HYPERTENSION Status: Chronic Comment: controlled - Plan * . Review of Systems - Review of Systems Constitutional: weakness Cardiovascular: negative: chest pain, palpitations, orthopnea, paroxysmal nocturnal dyspnea, edema, light headedness Gastrointestinal: negative: Nausea, Vomiting, Abdominal Pain, Diarrhea, Constipation, Melena, Hematochezia - Medications/Allergies Allergies/Adverse Reactions: Allergies Allergy/AdvReac Type Severity Reaction Status Date / Time No Known Allergies Allergy Verified 06/12/18 21:50 Medications: Current Medications Acetaminophen (Tylenol) 650 mg PO Q4H PRN PRN Reason: Headache/Fever/Mild Pain (1-3) Cyanocobalamin (Vitamin B-12) 1,000 mcg PO DAILY [facility] Last Admin: 10/01/18 09:06 Dose: Not Given Folic Acid (Folvite) 1 mg PO DAILY [facility] Last Admin: 10/01/18 09:06 Dose: Not Given Sodium Chloride (Normal Saline 0.9%) 1,000 mls @ 50 mls/hr IV .Q20H [facility] Last Admin: 10/01/18 00:38 Dose: 1,000 mls Multivitamins (Theragran) 1 tab PO DAILY [facility] Last Admin: 10/01/18 09:06 Dose: Not Given Pantoprazole Sodium (Protonix) 40 mg IVP Q12HR [facility] Last Admin: 10/01/18 09:07 Dose: Not Given Potassium Bicarb/Potassium Chloride (K-Lyte Cl) 25 meq PO QAM-WM [facility] Last Admin: 10/01/18 09:06 Dose: Not Given Senna/Docusate Sodium (Senokot S) 2 tab PO BIDPRN PRN PRN Reason: Constipation Thiamine HCl (Thiamine Hcl) 100 mg SLOW IVP Q24HR [facility] Last Admin: 09/30/18 19:53 Dose: 100 mg
[2018-10-01] MEDS: Thiamine HCl 200 MG/2 ML VIAL SLOW IVP SCH (20:49)
[2018-10-02 06:04] LABS: Hemoglobin 6.4 g/dL (12.0-16.0)
[2018-10-02] MEDS: Folic Acid 1 MG TAB PO SCH (08:59)
[2018-10-02] MEDS: Multivit, Therapeutic 1 TAB PO SCH (08:59)
[2018-10-02] MEDS: Cyanocobalamin (Vitamin B-12) 1,000 MCG TAB PO SCH (08:59)
[2018-10-02] MEDS: Pantoprazole 40 MG VIAL IVP SCH ×2 (09:01→21:31)
[2018-10-02] MEDS: Pot Chloride/Pot Bicarb/Cit Ac 25 mEq Effervescent Tablet PO SCH (09:03)
[2018-10-02] MEDS: Sodium Chloride 0.9% 10 ML ONE (09:05)
--- NOTE | 2018-10-02 10:17 | CON ---
DATE OF CONSULTATION: 09/30/2018 REASON FOR CONSULTATION: Anemia, history of weight loss, and occult GI bleeding. HISTORY OF PRESENT ILLNESS: Ms. Mercy Mac is a very pleasant 63-year-old female hospitalized yesterday because of a history of dyspnea with minimal exertion, easy fatigability, tiredness, and lack of energy. The patient has a history of alcohol abuse over the years off and on. She says she drinks for a month heavy and then stop drinking for a month, and start back again. The patient has had nothing to drink except one tall glass of wine this past Tuesday . The patient has been feeling very poorly over the last 2 to 3 weeks. She had no allergy, feels very tired, and now has dyspnea with minimal exertion. She had no chest pain. The patient has a poor appetite over the last several weeks. She did not feel like eating any meat and she stopped eating meat. She started eating basically fruits and vegetables, and some cottage cheese. After a while, she lost appetite to all those food products also. She is not eating a whole lot of food. She lost probably over 20 pounds in the last month or so. However, she has no localizing symptoms for weight loss. Denies abdominal pain, nausea, or vomiting. No history of any dysphagia, odynophagia. Her bowel movements are fairly regular. No history of hematochezia or any melena. Although, she is profoundly anemic, she has no history any blood loss. She denies any hematochezia, dark tarry stool, hematuria, bleeding from the gums or nose. The patient had been told anemia several years ago by Dr. Wagner and was placed on some iron supplement and vitamins. She tells me she had a colonoscopy 2 years ago at [facility] and was told that was totally negative. She never had an EGD. The patient denies taking aspirin or any NSAID medication. The patient has no prior history of any ulcer disease. On admission, she was found to be anemic with a hemoglobin around 6.6, hematocrit 20.2, and her MCV is normal. She had a stool for occult blood came back positive. However, the stool is not melanous. No relevant history. ALLERGIES: NONE. SOCIAL HISTORY: The patient is . She did smoke 30 years ago. Quit smoking more than 30 years ago. Alcohol intake, severe alcohol intake off and on. She has more active binge drinking over the last 3+ years. At times, she drank heavy. She tells me that she had a lot of multiple family problems and she is stressed out , and also is drinking alcohol. No history of drug use. MEDICAL ILLNESS: 1. Hypertension. 2. Depression and anxiety. 3. Gout with recent flare up of left foot and left 3rd toe is somewhat painful and edematous. No history of heart disease, diabetes, or lung disease. SURGERIES: 1. Left ankle fracture surgery. 2. Left shoulder surgery in more than 10 years ago. 3. Colonoscopy two years ago, negative. 4. Hysteroscopy in 2011. FAMILY HISTORY: There is no family history of cancer, heart disease, lung disease, strokes, etc. MEDICATION LIST: Reviewed. REVIEW OF SYSTEMS: A 10-point system reviewed. CRIME LABORATORY ANALYST: No history of any seizure disorder. No chronic headache. No syncope. RESPIRATORY: No history of chronic cough, hemoptysis, dyspnea. CARDIOVASCULAR: No chest pain. No palpitation. No dyspnea, orthopnea, or PND. However, she had mild dyspnea on exertion recently over the last 2 to 3 weeks ago. GI: No abdominal pain. No nausea or vomiting. No dysphagia or odynophagia. No rectal bleeding, melena. : No dysuria, hematuria. MUSCULOSKELETAL: Not nonrelevant. NEUROENDOCRINE: Not nonrelevant. HEMATOLOGICAL: Not nonrelevant. NEUROPSYCHIATRY: History of depression and anxiety. PHYSICAL EXAMINATION: GENERAL: She appears very comfortable, in no acute distress. The patient is a good historian. She is in no distress. VITAL SIGNS: Temperature 98.3 Fahrenheit, pulse is 97, and blood pressure is 102 /62. HEENT: Conjunctivae clear. NECK: Supple. No adenitis or thyromegaly noted. CARDIOVASCULAR: First and second heart sounds heard. LUNGS: Clear to auscultation. ABDOMEN: Soft. No organomegaly. No tenderness. No masses. Bowel sounds are normal. EXTREMITIES: Reveal no edema. CRIME LABORATORY ANALYST: Normal. LABORATORY DATA: Shows WBC 3000, hemoglobin is 6.6, hematocrit 20.3 MCV 113, platelet count is 222,000 polymorphs 51, bands 11, and lymphocytes 31. This morning, hemoglobin 5.8, hematocrit 27.2, polymorphs 45, and lymphocytes 13. Her chem-7 shows potassium 2.8, otherwise the chem 7 is normal. Iron is 83, TIBC 149. Ferritin level is 4089, bilirubin 1.3, AST 21, ALT 11, and alkaline phosphatase 104. The protein is 6.3, albumin 4.3, and lipase 170. Abdominal CAT scan is basically negative. CLINICAL IMPRESSION: 1. A 63-year-old female with chronic alcohol abuse over the years off and on. She quit drinking approximately a month ago, but she had a tall glass of wine five days ago. The anemia is macrocytic and most likely nutritional. There is some element of blood loss. However, the patient denies history of any hematochezia, melena, or any other source of blood loss. She had a colonoscopy 2 years ago, which was told to be negative. 2. Hypertension. 3. Gout. 4. Anxiety and depression. RECOMMENDATIONS: 1. To transfuse. 2. Followup H and H. 3. EGD tomorrow and I explained to her about the EGD procedure she underwent. I will plan an EGD tomorrow and make further recommendations. Job ID: [id number] [facility] CENTER[facility]ie
--- NOTE | 2018-10-02 16:11 | PDOC.PN ---
- Subjective Encounter Start Date: 10/02/18 Encounter Start Time: 16:10 Subjective: f/u for GI bleed and severe anemia s/p 2u PRBC's. EGD with -: gastritis and currently on PPI. - Objective Resuscitation Status - Order Detail: 09/29/18 16:43 Resuscitation Status Routine Resuscitation Status: FULL: Full Resuscitation MAR Reviewed: Yes Vital Signs & Weight: Vital Signs (12 hours) Temp Pulse Resp BP Pulse Ox 10/02/18 12:00 98.7 F 110 H 20 110/63 10/02/18 08:00 98.3 F 87 20 118/65 99 10/02/18 04:13 99.5 F 95 18 116/71 98 Weight Admit Weight 147 lb Weight 147 lb I&O: 10/01/18 10/02/18 10/03/18 06:59 06:59 06:59 Intake Total 1370 2810 Output Total 400 Balance 1370 2410 Result Diagrams: 10/02/18 05:57 10/01/18 05:26 Additional Labs: Laboratory Tests 09/29/18 09/29/18 09/29/18 11:07 17:33 19:19 Hgb Sodium Potassium Iron 83 TIBC 149 L % Saturation 56 H Ferritin 4089.78 H Lipase 170 H 09/30/18 09/30/18 09/30/18 05:24 05:24 14:02 Hgb 5.8 L* 7.6 L Sodium 135 L Potassium 2.8 L* Iron TIBC % Saturation Ferritin Lipase 10/01/18 05:26 Hgb 6.4 L Sodium Potassium Iron TIBC % Saturation Ferritin Lipase Phys Exam - Physical Examination Constitutional: NAD HEENT: PERRLA, sclera anicteric, oral pharynx no lesions Neck: no nodes, no JVD, supple, full ROM Respiratory: no wheezing, no rales, no rhonchi, clear to auscultation bilateral S1, S2 Cardiovascular: RRR, no significant murmur, no rub, gallop Gastrointestinal: soft, non-tender, no distention, positive bowel sounds Musculoskeletal: no edema, pulses present Neurological: normal sensation, moves all 4 limbs Psychiatric: A&O x 3 Skin: normal turgor, cap refill <2 seconds Dx/Plan (1) Acute anemia Code(s): D64.9 - ANEMIA, UNSPECIFIED Status: Acute Comment: Likely acute/ chronic anemia with normal iron studies, needs colonoscopy exam as last one was 7yrs prior, serial H/H, transfuse 1u PRBC's today (2) General weakness Code(s): R53.1 - WEAKNESS Status: Acute Comment: Secondary to #1 (3) Macrocytic anemia Code(s): D53.9 - NUTRITIONAL ANEMIA, UNSPECIFIED Status: Chronic Comment: Continue B12, Folate supplements (4) Hypokalemia Code(s): E87.6 - HYPOKALEMIA Status: Acute Comment: KCL supplementation, serial K+ monitoring (5) Gout flare Code(s): M10.9 - GOUT, UNSPECIFIED Status: Acute Qualifiers: Gout site: multiple sites Comment: Start Colchicine 0.6mg BID, Allopurinol chronically - Plan 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
[2018-10-02] MEDS ORDERED: predniSONE 20 MG TAB PO SCH (16:45)
[2018-10-02] MEDS ORDERED: Colchicine 0.6 MG TAB PO SCH (18:30)
[2018-10-02] MEDS ORDERED: GoLYTELY 4,000 ml Bottle PO SCH (19:30)
[2018-10-02] MEDS: Thiamine HCl 200 MG/2 ML VIAL SLOW IVP SCH (20:22)
[2018-10-03 06:54] LABS: Hemoglobin 9.2 g/dL (12.0-16.0); Mean Corpuscular HGB CONC 33.2 g/dL (32.0-36.0); Mean Corpuscular Hemoglobin 34.5 pg (27.0-31.0); Mean Platelet Volume 8.6 fL (7.4-10.4); Platelet Count 211 thou/uL (130-400); RBC Distribution Width 18.6 % (11.5-14.5); Red Blood Cell (RBC) Count 2.67 mill/uL (4.20-5.40); White Blood Cell (WBC) Count 3.1 thou/uL (4.8-10.8)
[2018-10-03 07:01] LABS: Anion Gap 16 mmol/L (10-20); BUN (Urea Nitrogen) 7 mg/dL (9.8-20.1); Calc. Creatinine Clearance 100 mL/min (70-130); Calcium 9.7 mg/dL (7.8-10.44); Carbon Dioxide 23 mmol/L (23-31); Chloride 103 mmol/L (98-107); Estimated GFR-MDRD Greater than 90; Glucose 127 mg/dL (80-115); Potassium 3.6 mmol/L (3.5-5.1); Sodium 138 mmol/L (136-145)
[2018-10-03 07:32] LABS: Folate (Folic Acid) 7.2 ng/mL (7.0-31.4)
--- NOTE | 2018-10-03 08:13 | PRG ---
DATE OF SERVICE: 10/02/2018 SUBJECTIVE: This is a 63-year-old hospitalized with anemia, occult GI bleeding. She had an EGD done 2 or 3 weeks ago, which revealed no pathology for mild gastritis. The patient told me initially that she had a colonoscopy 2 years ago. However, she found late this morning that she had a colonoscopy more than 7 years ago. She had 2 small polyps removed as per the patient. The patient's blood count did come up slightly out of the transfusion. Initial hemoglobin was 5.8, hematocrit 17.2. After transfusion, came up to 7.6 and 22.3. It dropped to 6.4 and 19 hematocrit. The patient has had no stool over the last 72 hours. Last BM was on Tuesday. I am really not sure why her blood count dropped from 7.6 to 6.4. She has no complaints. She complains of swelling over the left middle finger and phalangeal joint is inflamed, swollen and erythematous. She was seen by Dr. Prather and was told she had gout and was placed on medication. The patient has no abdominal pain, no nausea, no vomiting. She has no stool today. PHYSICAL EXAMINATION: GENERAL: Appears comfortable. VITAL SIGNS: Stable. Afebrile. Pulse is 87, blood pressure is 116/60. HEENT: Conjunctivae clear. CARDIOVASCULAR: First and second heart sounds are heard. LUNGS: Clear to auscultation. ABDOMEN: Soft. No organomegaly. No tenderness. No masses. IMPRESSION: Anemia, occult GI bleeding. There is no history of overt GI bleeding. The patient's blood count dropped from 7.6 to 6.4 overnight. However, she has had no overt bleeding.. I did talk to Ms. Mac about having colonoscopy. She is agreeable. I will plan for colonoscopy tomorrow. Job ID: [id number] MTDD
[2018-10-03 09:36] LABS: Band 10 % (5-11); Lymphocytes 24 % (21-51); MDiff Complete? YES; Macrocytosis SLIGHT = 6-15 cells (100X) (0-5/hpf); Metamyelocyte 2 % (0-0); Monocytes 6 % (0-10); Neutrophil 58 % (42-75); Polychromasia SLIGHT = 2-3 cells (100X) (0-2/hpf)
[2018-10-03] MEDS ORDERED: Ondansetron HCl/PF 4 MG/2 ML Vial IVP PRN (13:11)
[2018-10-03] MEDS ORDERED: Promethazine HCl 25 MG/ML VIAL IM PRN (13:11)
[2018-10-03] MEDS ORDERED: Promethazine HCl 25 MG/ML VIAL SLOW IVP PRN (13:11)
[2018-10-03] MEDS ORDERED: PROPOFOL 200 MG/20 ML VIAL ONE (15:31)
[2018-10-03] MEDS ORDERED: Lidocaine 1% PF 5 ML VIAL ONE (15:31)
[2018-10-03] MEDS: Sodium Chloride 0.9% 1,000 ML IV SCH (17:10)
[2018-10-03] MEDS ORDERED: Cyanocobalamin (Vitamin B-12) 1,000 MCG TAB PO SCH (17:15)
[2018-10-03] MEDS ORDERED: predniSONE 20 MG TAB PO SCH (17:15)
[2018-10-03] MEDS ORDERED: Multivit, Therapeutic 1 TAB PO SCH (17:15)
[2018-10-03] MEDS ORDERED: Folic Acid 1 MG TAB PO SCH (17:15)
[2018-10-03] MEDS ORDERED: Pot Chloride/Pot Bicarb/Cit Ac 25 mEq Effervescent Tablet PO SCH (17:15)
--- NOTE | 2018-10-03 18:42 | PDOC.PN ---
- Subjective Encounter Start Date: 10/03/18 (f/u anemia) Encounter Start Time: 18:39 Subjective: Pt without complaints, denies any change in left 3rd finger -: and left 3rd toe - both swollen. Denies any pain. s/p colonoscopy -: today - Objective Resuscitation Status - Order Detail: 09/29/18 16:43 Resuscitation Status Routine Resuscitation Status: FULL: Full Resuscitation Vital Signs & Weight: Vital Signs (12 hours) Temp Pulse Resp BP Pulse Ox 10/03/18 16:55 97.9 F 94 14 121/66 99 10/03/18 14:40 97.7 F 71 20 157/74 H 10/03/18 14:10 97.5 F L 73 20 141/68 H 100 10/03/18 07:58 97.6 F 71 20 146/76 H 100 Weight Admit Weight 147 lb Weight 147 lb I&O: 10/02/18 10/03/18 10/04/18 06:59 06:59 06:59 Intake Total 2810 350 600 Output Total 400 700 Balance 2410 -350 600 Result Diagrams: 10/03/18 06:13 10/03/18 06:13 Phys Exam - Physical Examination Constitutional: NAD Respiratory: no wheezing, no rales, no rhonchi Cardiovascular: RRR, no significant murmur Gastrointestinal: soft, non-tender, no distention, positive bowel sounds Musculoskeletal: no edema, pulses present Psychiatric: normal affect Deviation from normal: left 3rd PIP finger with edema/erythema and fluctuance -: left 3rd toe distal tip with erythema and crusting Dx/Plan (1) Acute anemia Code(s): D64.9 - ANEMIA, UNSPECIFIED Status: Acute (2) Leukopenia Code(s): D72.819 - DECREASED WHITE BLOOD CELL COUNT, UNSPECIFIED Status: Chronic Qualifiers: Neutropenia type: unspecified (3) Alcohol abuse Code(s): F10.10 - ALCOHOL ABUSE, UNCOMPLICATED Status: Chronic (4) Hypertension Code(s): I10 - ESSENTIAL (PRIMARY) HYPERTENSION Status: Chronic Qualifiers: Hypertension type: essential hypertension Qualified Code(s): I10 - Essential (primary) hypertension (5) Gout flare Code(s): M10.9 - GOUT, UNSPECIFIED Status: Acute Qualifiers: Gout site: multiple sites - Plan * Anemia - s/p 3 units prbc * EGD with mild gastritis, colonoscopy today with polyps removed - d/c Dr. Shelby and no explanation for anemia on endoscopy * will change PPI to oral, and IV thiamine to oral * Consult Hematology for anemia and leukopenia * continue vitamin supplements * gout -on prednisone day 2 and colchicine bid - monitor * left great toe erythema/crusting - requested wound care to see. Pt with good dp pulses bilateral * hx of hypertension - some mildly elevated bp's here, last one normal, consider return to metoprolol if consistently elevated. Pt reports this was d/ c in the outpatient setting secondary to normal bp's * * dvt prophy - ambulatory * gi prophy - not indicated * code status full * * reviewed plan of care with patient, no questions or further needs at end of eval. * anticipate home when hemoglobin stable and workup from Hematology complete.
[2018-10-03] MEDS: Pot Chloride/Pot Bicarb/Cit Ac 25 mEq Effervescent Tablet PO SCH (20:13)
[2018-10-03] MEDS: Cyanocobalamin (Vitamin B-12) 1,000 MCG TAB PO SCH (20:14)
[2018-10-03] MEDS: predniSONE 20 MG TAB PO SCH (20:14)
[2018-10-03] MEDS: Colchicine 0.6 MG TAB PO SCH ×2 (20:14→20:23)
[2018-10-03] MEDS: Folic Acid 1 MG TAB PO SCH (20:14)
[2018-10-03] MEDS: Multivit, Therapeutic 1 TAB PO SCH (20:15)
[2018-10-03] MEDS: Pantoprazole 40 MG VIAL IVP SCH (20:15)
--- NOTE | 2018-10-03 23:33 | OP ---
DATE OF PROCEDURE: 10/03/2018 PREOPERATIVE DIAGNOSIS: Anemia, occult gastrointestinal bleeding. POSTOPERATIVE DIAGNOSES: 1. Sigmoid diverticular disease with occasional diverticula over the descending colon area. 2. Large hemorrhoids. 3. Sessile polyp, hepatic flexure. 4. Sessile polyp x2, transverse colon. PROCEDURE PERFORMED: Colonoscopy with polypectomy. DESCRIPTION OF PROCEDURE: The patient was placed on her left lateral position and was given sedation by Anesthesia Department. A rectal exam was done before the scope was advanced into the rectum. No lesions felt on rectal exam. A Pentax video colonoscope was introduced into the rectum and advanced all the way into the cecum. The prep was very good. The patient had a very tortuous, redundant colon. Abdominal compression was used to advance the scope all the way into the cecum. The ileocecal area, cecum, ascending colon, no pathology. The hepatic flexure showed a sessile polyp. This was removed with snare cautery with good hemostasis. There were 2 more sessile polyps in the transverse colon area. Both were removed by snare cautery with good hemostasis. The splenic flexure had no pathology. Descending colon, sigmoid colon showed scattered diverticula. Retroflexion of the scope showed rectal hemorrhoids. RECOMMENDATION: 1. Diet as tolerated. 2. Follow up H and H and transfuse p.r.n. Job ID: [id number]
[2018-10-04 07:08] LABS: #Lymphocytes 0.4 thou/uL (1.20-3.40); #Monocytes 0.2 thou/uL (0.11-0.59); #Neutrophils 2.5 thou/uL (1.40-6.50); %Eosinophils 0.2 % (0.0-10.0); %Lymphocytes 12.9 % (21.0-51.0); %Monocytes 7.3 % (0.0-10.0); %Neutrophils 79.6 % (42.0-75.0); Hemoglobin 8.1 g/dL (12.0-16.0); Mean Corpuscular HGB CONC 31.2 g/dL (32.0-36.0); Mean Platelet Volume 9.1 fL (7.4-10.4); Platelet Count 205 thou/uL (130-400); RBC Distribution Width 19.4 % (11.5-14.5); Red Blood Cell (RBC) Count 2.46 mill/uL (4.20-5.40); White Blood Cell (WBC) Count 3.1 thou/uL (4.8-10.8)
[2018-10-04 07:19] LABS: Anion Gap 14 mmol/L (10-20); BUN (Urea Nitrogen) 11 mg/dL (9.8-20.1); Calc. Creatinine Clearance 95 mL/min (70-130); Calcium 9.3 mg/dL (7.8-10.44); Carbon Dioxide 23 mmol/L (23-31); Chloride 106 mmol/L (98-107); Estimated GFR-MDRD Greater than 90; Glucose 176 mg/dL (80-115); Potassium 3.8 mmol/L (3.5-5.1); Sodium 139 mmol/L (136-145)
[2018-10-04 07:53] LABS: Hypochromia SLIGHT = 6-15 cells (100X) (0-5/hpf); MDiff Complete? YES; Platelet Morphology Comment Appears Adequate; Polychromasia SLIGHT = 2-3 cells (100X) (0-2/hpf)
[2018-10-04] MEDS: Multivit, Therapeutic 1 TAB PO SCH (08:05)
[2018-10-04] MEDS: Cyanocobalamin (Vitamin B-12) 1,000 MCG TAB PO SCH (08:05)
[2018-10-04] MEDS: Thiamine 100 MG TAB PO SCH (08:05)
[2018-10-04] MEDS: predniSONE 20 MG TAB PO SCH (08:05)
[2018-10-04] MEDS: Colchicine 0.6 MG TAB PO SCH ×2 (08:05→20:24)
[2018-10-04] MEDS: Folic Acid 1 MG TAB PO SCH (08:05)
[2018-10-04 09:14] LABS: Reticulocyte Count 4.8 % (0.5-1.5)
[2018-10-04] MEDS: Pot Chloride/Pot Bicarb/Cit Ac 25 mEq Effervescent Tablet PO SCH (10:30)
--- NOTE | 2018-10-04 11:26 | CON ---
DATE OF CONSULTATION: REASON FOR CONSULT: Anemia with leukopenia. HISTORY OF PRESENT ILLNESS: Ms. Mac is a pleasant 63-year-old female with past medical history of alcohol use and hypertension, who presented to the hospital with complaints of shortness of breath and weakness. On admission, she was noted to have a white count of 3.0 and a hemoglobin of 6.6. She did have positive fecal occult blood. She has undergone an EGD and colonoscopy. The EGD showed mild gastritis. Colonoscopy, she had several polyps removed. There was no evidence of bleeding. The patient has been anemic and leukopenic since 2016. In January of 2017, her white count was 4.1 and in September of 2017, it was 3.4 and in May of 2018, it was 2.7. In November of 2016, her hemoglobin was as low as 6.6, and in May of 2018, she was as low as 6.9. The patient was started on B12 and folic acid on her May admission. She also takes an iron pill daily. She has a history of a left breast mass found on mammogram in 2016. She saw a doctor at [facility]. She states she was not told that she had cancer, but she did take an oral pill twice a day for only two months. She states that the mass has went away and medicine was stopped. She has also been dealing with cellulitis over the past two months and has been on antibiotic, she does not know the name. On this admission, she has been transfused 3 units of packed RBCs with good response. She has an elevated ferritin of greater than 4000 and an iron saturation of 56%. Her B12 and folic acid were normal, although the folate is low normal. Her CBC shows a macrocytic anemia. She also has metamyelocytes on her differential. Her retic count on admission was 2.0. We were asked to see the patient regarding her abnormal CBC. PAST MEDICAL HISTORY: 1. Alcohol abuse. 2. Hypertension. 3. Gout. 4. Anxiety and depression. 5. History of left breast mass. PAST SURGICAL HISTORY: 1. Ankle surgery. 2. Hysterectomy in 2011. ALLERGIES: NO KNOWN DRUG ALLERGIES. HOME MEDICATIONS: 1. Metoprolol 25 mg b.i.d. 2. B12 daily. 3. Folic acid daily. 4. Slow-Mag t.i.d. 5. Oral iron daily. 6. Potassium chloride 10 mEq daily. 7. Thiamine 100 mg daily. FAMILY HISTORY: No history of cancer. SOCIAL HISTORY: She is , lives with her , diagnosed with alcoholism five years ago. Denies any recent alcohol use. No smoking. No drug use. REVIEW OF SYSTEMS: CONSTITUTIONAL: No fever, chills, or night sweats. EYES: No blurred or double vision. ENT: No pain, hoarseness, sore throat, or dysphagia. CV: No chest pain, palpitations, or syncope. RESPIRATORY: No shortness of breath, dyspnea on exertion, or orthopnea. GI: No nausea, vomiting, diarrhea, constipation, or abdominal pain. : No dysuria or hematuria. MUSCULOSKELETAL: No joint or back pain. SKIN: No rash or pruritus. HEMATOLOGIC: No bruising, bleeding, or clotting. NEUROLOGIC: Positive for weakness. No headache, numbness, tingling, or seizure activity. PSYCH: Positive for anxiety and depression. PHYSICAL EXAMINATION: VITAL SIGNS: Temperature is 98.3, pulse is 76, respiratory rate 18, BP is 149/ 90, and she is 100% on room air. GENERAL: Well-developed, well-nourished female, in no acute distress. HEENT: Normocephalic and atraumatic. Pupils are equal and reactive to light. NECK: Supple. CV: Regular rate and rhythm. LUNGS: Clear. ABDOMEN: Soft and nontender. Bowel sounds are positive. EXTREMITIES: There is no clubbing, cyanosis, or edema. SKIN: No rash. HEMATOLOGIC: No petechiae or purpura. NEUROLOGIC: Nonfocal. BREASTS: There is no masses, skin changes, or inverted nipple. LYMPH: There is no palpable lymphadenopathy. PERTINENT LABS AND X-RAYS: Current WBCs are 3.1, hemoglobin 8.1, hematocrit 26.1, and platelet count is 205,000. She has 79% neutrophils, 20% lymphocytes, 2% metamyelocytes, and retic count is 4.8. PT is 14.6, INR is 1.1, and PTT is 30.7. Sodium is 139, potassium is 3.8, chloride is 106, CO2 is 23, BUN is 11, creatinine is 0.62, calcium is 9.3, and uric acid is 11.6. Troponin is negative. Bilirubin is 1.3, AST is 21, ALT is 11, alkaline phosphatase is 10, serum total protein is 6.7, albumin is 4.3, globulin is 2.4, and lipase is 170. CT of her abdomen and pelvis showed fatty liver, diverticulitis, and cholelithiasis, it was a stable calcified lesion adjacent to the liver. ASSESSMENT: 1. Chronic anemia and leukopenia. 2. Gastrointestinal bleed. 3. History of alcohol abuse. DISCUSSION: The patient has had a GI workup, that does not explain her chronic anemia. Her folic acid is low normal. She is continuing supplementation. We will stop her iron as she appears to be have iron overload. Would need to recheck her iron levels in six weeks as it could be elevated secondary to blood transfusion. She has myelocytes and metamyelocytes on her peripheral smear in the past, combined with the low retic count. This is concerning for a bone marrow process. Would recommend a bone marrow biopsy. I discussed this with patient, who agrees to proceed. Hopefully, we can get this done today or tomorrow, at which point, she could follow up in the clinic for results. Would transfuse for hemoglobin less than 7. Case has been discussed with Dr. Zapata. Thank you for the consult. Job ID: [id number] [facility]
[2018-10-04] MEDS ORDERED: Fentanyl 100 MCG/2 ML VIAL ONE (12:56)
[2018-10-04] MEDS ORDERED: Sodium Bicarbonate 2.5 MEQ/5 ML VIAL ONE (12:56)
[2018-10-04] MEDS ORDERED: Midazolam HCl 2 mg/2 ml Vial ONE (12:57)
--- NOTE | 2018-10-04 14:24 | PDOC.PN ---
- Subjective Encounter Start Date: 10/04/18 Encounter Start Time: 10:15 Subjective: pt up in bed no complains - Objective Resuscitation Status - Order Detail: 09/29/18 16:43 Resuscitation Status Routine Resuscitation Status: FULL: Full Resuscitation Vital Signs & Weight: Vital Signs (12 hours) Temp Pulse Resp BP Pulse Ox 10/04/18 08:10 100 10/04/18 07:41 98.3 F 76 18 149/90 H 100 10/04/18 04:15 98.9 F 88 18 117/75 97 Weight Admit Weight 147 lb Weight 147 lb I&O: 10/03/18 10/04/18 10/05/18 06:59 06:59 06:59 Intake Total 350 600 Output Total 700 Balance -350 600 Result Diagrams: 10/04/18 06:46 10/04/18 06:46 Additional Labs: Accuchecks 10/04/18 10/03/18 04:22 20:44 POC Glucose 155 H 97 Phys Exam - Physical Examination Neck: no nodes, no JVD, supple, full ROM Respiratory: no wheezing, no rales, no rhonchi, wheezing present, clear to auscultation bilateral Cardiovascular: RRR, no significant murmur, no rub, gallop, irregular Gastrointestinal: soft, non-tender, no distention, positive bowel sounds Dx/Plan (1) General weakness Code(s): R53.1 - WEAKNESS Status: Acute Comment: Secondary to #1 (2) Acute anemia Code(s): D64.9 - ANEMIA, UNSPECIFIED Status: Acute (3) HTN (hypertension) Code(s): I10 - ESSENTIAL (PRIMARY) HYPERTENSION Status: Chronic Comment: controlled - Plan egd/colonoscopy normal -: possible anemia of chronic disease. pt will get a bone marrrow -: hh low stable * . Review of Systems - Review of Systems Respiratory: negative: Cough, Dry, Shortness of Breath, Hemoptysis, SOB with Excertion, Pleuritic Pain, Sputum, Wheezing Cardiovascular: negative: chest pain, palpitations, orthopnea, paroxysmal nocturnal dyspnea, edema, light headedness, other - Medications/Allergies Allergies/Adverse Reactions: Allergies Allergy/AdvReac Type Severity Reaction Status Date / Time No Known Allergies Allergy Verified 06/12/18 21:50 Medications: Current Medications Acetaminophen (Tylenol) 650 mg PO Q4H PRN PRN Reason: Headache/Fever/Mild Pain (1-3) Last Admin: 10/02/18 08:59 Dose: 650 mg Colchicine (Colchicine) 0.6 mg PO BID [facility] Last Admin: 10/04/18 08:05 Dose: 0.6 mg Cyanocobalamin (Vitamin B-12) 1,000 mcg PO DAILY [facility] Last Admin: 10/04/18 08:05 Dose: 1,000 mcg Folic Acid (Folvite) 1 mg PO DAILY [facility] Last Admin: 10/04/18 08:05 Dose: 1 mg Multivitamins (Theragran) 1 tab PO DAILY [facility] Last Admin: 10/04/18 08:05 Dose: 1 tab Pantoprazole Sodium (Protonix) 40 mg PO DAILY [facility] Last Admin: 10/04/18 08:05 Dose: 40 mg Potassium Bicarb/Potassium Chloride (K-Lyte Cl) 25 meq PO QAM-WM [facility] Last Admin: 10/04/18 10:30 Dose: 25 meq Prednisone (Prednisone) 40 mg PO QAM-WM [facility] Last Admin: 10/04/18 08:05 Dose: 40 mg Senna/Docusate Sodium (Senokot S) 2 tab PO BIDPRN PRN PRN Reason: Constipation Thiamine HCl (Thiamine) 100 mg PO DAILY [facility] Last Admin: 10/04/18 08:05 Dose: 100 mg
--- NOTE | 2018-10-04 15:27 | CT ---
CT Deep Bone Perc Biopsy CT GUIDED BONE MARROW BIOPSY: CLINICAL HISTORY: Leukopenia, anemia. PROCEDURE: Informed consent was obtained and the patient was escorted to the procedural suite, placed in prone p osition. Conscious sedation for a total of 45 minutes was performed, administered by the radiology nurse, with the patient consistently monitored throughout the duration of the exam in stable conditio n. The patient's skin was prepped and draped in a standard sterile fashion and topical anesthesia with buffered 1% lidocaine was performed. After a small skin incision was made, an access trocar from a standard bone biopsy kit was advanced to the cortex of the posterior aspect of the right ilium and was subsequently advanced into the marrow. 2 separate marrow aspirates were obtained and provided to the sow farm barn technician. Subsequently, one core biopsy of the right ilium was also obtained with the sample provided to the hematology tech. Specimens were deemed adequate for interpretation. T herefore, all devices were then removed from the patient. Imaging was stored for documentation. No unexpected procedural complications were present. The patient was monitored in radiology holding i n stable condition prior to discharge with family member. IMPRESSION: Technically successful percutaneous bone marrow aspirate and bonebiopsy via the right ilium. Pathology results are pending.
[2018-10-04] MEDS ORDERED: Acetaminophen 500 MG TAB PO PRN (16:58)
[2018-10-04] MEDS: Metoprolol Tartrate 25 MG TAB PO SCH (20:24)
[2018-10-05 06:51] LABS: #Monocytes 0.5 thou/uL (0.11-0.59); #Neutrophils 2.6 thou/uL (1.40-6.50); %Eosinophils 0.6 % (0.0-10.0); %Lymphocytes 24.8 % (21.0-51.0); %Monocytes 11.4 % (0.0-10.0); %Neutrophils 63.2 % (42.0-75.0); Hemoglobin 7.9 g/dL (12.0-16.0); Mean Corpuscular HGB CONC 30.6 g/dL (32.0-36.0); Mean Corpuscular Hemoglobin 32.6 pg (27.0-31.0); Mean Platelet Volume 9.3 fL (7.4-10.4); Platelet Count 189 thou/uL (130-400); RBC Distribution Width 18.7 % (11.5-14.5); Red Blood Cell (RBC) Count 2.42 mill/uL (4.20-5.40)
[2018-10-05] MEDS: predniSONE 20 MG TAB PO SCH (08:05)
[2018-10-05] MEDS: Colchicine 0.6 MG TAB PO SCH (08:05)
[2018-10-05] MEDS: Metoprolol Tartrate 25 MG TAB PO SCH (08:05)
[2018-10-05] MEDS: Cyanocobalamin (Vitamin B-12) 1,000 MCG TAB PO SCH (08:05)
[2018-10-05] MEDS: Folic Acid 1 MG TAB PO SCH (08:06)
[2018-10-05] MEDS: Multivit, Therapeutic 1 TAB PO SCH (08:06)
[2018-10-05] MEDS: Thiamine 100 MG TAB PO SCH (08:06)
[2018-10-05] MEDS: Pot Chloride/Pot Bicarb/Cit Ac 25 mEq Effervescent Tablet PO SCH (09:30)
[2018-10-05 17:01] VITALS: BP 123/78; TEMP 98
--- NOTE | 2018-10-07 12:08 | EKG ---
Test Reason : Blood Pressure : / mmHG Vent. Rate : 093 BPM Atrial Rate : 093 BPM P-R Int : 118 ms QRS Dur : 102 ms QT Int : 354 ms P-R-T Axes : 013 012 074 degrees QTc Int : 440 ms Normal sinus rhythm Confirmed by HOUSTON DIEZ ([id number]), editor book MONICA TREVIZO ([id number]) on 10/07/2018 12:08:11 PM Referred By: Confirmed By:HOUSTON DIEZ
== END 2018-10-05 17:03 | disposition home or self-care (01) | DRG 812 ==
LOC: ERS 10:38 → 3SE 16:10 → T4-A 10-03 20:13
PROVIDERS: ADMIT Internal Medicine; ATTEND Internal Medicine
PROC: 30233N1 Transfusion of Nonautologous Red Blood Cells into Peripheral Vein, Percutaneous Approach (ICD-10-PCS; 2018-09-29)
PROC: 0DB98ZX Excision of Duodenum, Via Natural or Artificial Opening Endoscopic, Diagnostic (ICD-10-PCS; principal; 2018-10-01)
PROC: 0DB68ZX Excision of Stomach, Via Natural or Artificial Opening Endoscopic, Diagnostic (ICD-10-PCS; 2018-10-01)
PROC: 0DBL8ZZ Excision of Transverse Colon, Via Natural or Artificial Opening Endoscopic (ICD-10-PCS; 2018-10-03)
PROC: 07DR3ZX Extraction of Iliac Bone Marrow, Percutaneous Approach, Diagnostic (ICD-10-PCS; 2018-10-04)
DX: D64.9 Anemia, unspecified (principal); I10 Essential (primary) hypertension; F41.9 Anxiety disorder, unspecified; F32.9 Major depressive disorder, single episode, unspecified; F10.11 Alcohol abuse, in remission; M10.9 Gout, unspecified; E87.6 Hypokalemia; K44.9 Diaphragmatic hernia without obstruction or gangrene; K29.70 Gastritis, unspecified, without bleeding; D72.819 Decreased white blood cell count, unspecified; K57.30 Diverticulosis of large intestine without perforation or abscess without bleeding; K63.5 Polyp of colon; K64.9 Unspecified hemorrhoids; Z87.891 Personal history of nicotine dependence
CPT/HCPCS: 20225; 36415; 36416; 36430; 74177; 77012; 80048; 80053; 80307; 82274; 82550; 82607; 82728; 82746; 83540; 83550; 83690; 84484; 84550; 85007; 85014; 85018; 85025; 85027; 85046; 85097; 85610; 85730; 86850; 86900; 86901; 88184; 88237; 88305; 88311; 88312; 88313; 93005; 96361; 96365; 96372; 96375; C9113; J0171; J0500; J2001; J2250; J2405; J2704; J3010; J3411; J3480; J7512; P9016; Q9966

== ENCOUNTER 2019-03-20 10:44 | Inpatient (IN) | payer BC ==
[2019-03-20] MEDS ORDERED: Ondansetron ODT 4 MG TAB ONE (11:10)
--- NOTE | 2019-03-20 12:03 | CT ---
Head CT without contrast 03/20/2019: Comparison: None HISTORY: Shortness of breath, vomiting, fever, abdominal pain TECHNIQUE: Axial CT imaging at 5 mm intervals from vertex through skull base without contrast FINDINGS: There are a few opacified mastoid air cells inferiorly on the left. The imaged paranasal sinuses and mastoid air cells are otherwise grossly unremarkable. There is mild cerebral and cerebellar volume loss. There is multifocal periventricular, deep, and sub cortical white matter hypodensity, evidence of small vessel disease. No intracranial hemorrhage. IMPRESSION: Small vessel disease. No intracranial hemorrhage.
--- NOTE | 2019-03-20 12:04 | RAD ---
Exam: Chest one view HISTORY:Altered mental status Comparison: 10/22/2017 FINDINGS: Cardiac silhouette: Normal Aorta: Atherosclerosis Pulmonary vessels: Normal Costophrenic angles: Clear LUNGS: No masses or consolidation. Chronic changes lung parenchyma. Pneumothorax: None Osseous abnormalities: None IMPRESSION: No acute cardiopulmonary process. Atherosclerosis.
[2019-03-20] MEDS ORDERED: Multivitamins, Adult 10 ML, Thiamine HCl 100 MG, Folic Acid 1 MG in Dextrose 5 %-0.45 %... IV SCH (12:15)
[2019-03-20 12:45] LABS: #Lymphocytes 0.7 thou/uL (1.20-3.40); #Monocytes 0.3 thou/uL (0.11-0.59); #Neutrophils 3.3 thou/uL (1.40-6.50); %Basophils 0.1 % (0.0-1.0); %Eosinophils 0.5 % (0.0-10.0); %Lymphocytes 15.3 % (21.0-51.0); Hemoglobin 9.9 g/dL (12.0-16.0); MDiff Complete? YES; Macrocytosis SLIGHT = 6-15 cells (100X) (0-5/hpf); Mean Corpuscular HGB CONC 33.5 g/dL (32.0-36.0); Mean Corpuscular Hemoglobin 36.9 pg (27.0-31.0); Mean Platelet Volume 8.5 fL (7.4-10.4); Platelet Count 89 thou/uL (130-400); Platelet Morphology Comment Appears Decreased; RBC Distribution Width 15.6 % (11.5-14.5); Red Blood Cell (RBC) Count 2.68 mill/uL (4.20-5.40); White Blood Cell (WBC) Count 4.3 thou/uL (4.8-10.8)
[2019-03-20 12:52] LABS: ALT (SGPT) 11 U/L (8-55); AST (SGOT) 43 U/L (5-34); Albumin 4.5 g/dL (3.4-4.8); Alkaline Phosphatase 123 U/L (40-110); Anion Gap 33 mmol/L (10-20); BUN (Urea Nitrogen) 12 mg/dL (9.8-20.1); Bilirubin, Total 1.8 mg/dL (0.2-1.2); CK (CPK) 142 U/L (29-168); Calc. Creatinine Clearance 0 mL/min (70-130); Calcium 9.1 mg/dL (7.8-10.44); Carbon Dioxide 10 mmol/L (23-31); Chloride 99 mmol/L (98-107); Estimated GFR-MDRD 45; Globulin 2.8 g/dL (2.4-3.5); Glucose 131 mg/dL (80-115); Lipase 301 U/L (8-78); Potassium 3.4 mmol/L (3.5-5.1); Protein, Total 7.3 g/dL (6.0-8.3); Sodium 139 mmol/L (136-145)
[2019-03-20 12:53] LABS: Acetaminophen Less than 6.0 mcg/mL (10.0-30.0); Alcohol Less than 10 mg/dL (Less than 10); Salicylate Less than 8.0 mg/dL (15.0-30.0)
[2019-03-20] MEDS ORDERED: Aspirin Chewable 81 MG TAB ONE (14:01)
[2019-03-20] MEDS ORDERED: Meclizine HCl 12.5 MG TAB PO PRN (14:30)
[2019-03-20] MEDS ORDERED: Lorazepam 1 MG TAB PO PRN (14:33)
[2019-03-20] MEDS ORDERED: Diazepam 5 MG TAB PO PRN (14:38)
[2019-03-20] MEDS ORDERED: Acetaminophen 325 MG TAB PO PRN (14:40)
[2019-03-20] MEDS ORDERED: Ondansetron PF 4 MG/2 ML Vial IVP PRN (14:40)
[2019-03-20] MEDS ORDERED: Ondansetron ODT 4 MG TAB PO PRN (14:40)
[2019-03-20] MEDS ORDERED: Acetaminophen 650 MG Suppository PR PRN (14:40)
[2019-03-20] MEDS ORDERED: Sodium Chloride 0.9% 1,000 ML IV SCH (14:45)
[2019-03-20] MEDS ORDERED: Folic Acid 1 MG TAB PO SCH (14:45)
[2019-03-20] MEDS ORDERED: Multivit, Chewable SF 1 TAB PO SCH (14:45)
[2019-03-20] MEDS ORDERED: Potassium Chloride 20 MEQ/100 ML PREMIX BAG IVPB SCH (14:45)
[2019-03-20] MEDS ORDERED: Thiamine 100 MG TAB PO SCH (14:45)
--- NOTE | 2019-03-20 14:52 | PDOC.HHP ---
Hospitalist HPI - History of Present Illness Nausea, vomiting and dizziness History of Present Illness: Ms. Mac presents with complaints of nausea, vomiting and abdominal pain that started 5 days ago. She states she began to feel lightheaded and short of breath with any activity since 3-4 days ago. Patient reportedly had an ataxic gait. She denies this but admits to feeling lightheaded and having to walk slowly, however does admit to dizziness described as a spinning sensation when sitting up. Patient reportedly has continued to drink alcohol but according to the patient she has not had any alcohol for 3 weeks. Denies any withdrawal symptoms. States she previously had 2 mixed vodka drinks a day. At the moment she states she is feeling better but has not been on her feet while in the ED and is unsure if she is still lightheaded or short of breath with walking. She denies any associated chest pain. Has had a cough productive for white sputum. Reported fevers to the ED. She denies any hemoptysis. Low lower leg swelling or pain. ED Course: She had a CT Head done which was negative. Asprin 324 mg was given. She was also given 1 L of NS and a banana bag. CXR showed no acute changes. Labs were notable for low hgb of 9.9, WCC 4.3, platelets 89. K+ 3.4, Na+ 139. BUN 12, Creat 1.19, GFR 45 (Previously >90 in 09/2018) T bili 1.8, Alk phos 123, AST 43, ALT 11. Lipase 301. Trop negative. Ammonia normal at 48. Alcohol level <10. Aceatminophen negative. Hospitalist ROS - Review of Systems Constitutional: reports: fever, weakness, malaise Eyes: denies: pain, vision change, conjunctivae inflammation, eyelid inflammation, redness, other ENT: denies: ear pain, ear discharge, nose pain, nose discharge, nose congestion , mouth pain, mouth swelling, throat pain, throat swelling, other Respiratory: reports: cough (white sputum), SOB with excertion, sputum (white). denies: dry, shortness of breath, hemoptysis, pleuritic pain, wheezing, other Cardiovascular: reports: light headedness. denies: chest pain, palpitations, orthopnea, paroxysmal noc. dyspnea, edema, other Gastrointestinal: reports: nausea, vomiting, abdominal pain. denies: diarrhea, constipation, melena, hematochezia, other Genitourinary: reports: frequency. denies: dysuria, incontinence, hematuria, retention, other Musculoskeletal: denies: neck pain, shoulder pain, arm pain, back pain, hand pain, leg pain, foot pain, other Skin: denies: rash, lesions, prem, bruising, other Neurological: reports: other (reportedly has had new onset ataxia) Hospitalist History - Past Medical History Source: patient, other (ED notes) Cardiac: reports: HTN Psych: reports: Addictions (Hx of alcohol abuse) Rheumatologic: reports: Gout Other Medical History: Left breast mass, treated with chemo in 2019 - Past Surgical History Other Surgical History: Ankle surgery and left shoulder surgery - Family History Family History: reports: no pertinent history - Social History Smoking Status: Former smoker Alcohol: reports: Heavy (until 3 weeks ago (per patient) inconsistent with what family reported to ED) Living Situation: With Family Activity level: independent ambulation - Exam General Appearance: ill appearing Eye: scleral icterus (slight slceral icterus) ENT: dry oral mucosa Neck: supple, symmetric, no lymphadenopathy Heart: RRR, normal peripheral pulses Respiratory: CTAB, no wheezes, no rales, no ronchi, normal chest expansion, no tachypnea Gastrointestinal: soft, normal bowel sounds, no guarding, no rigidity, tender to palpation (mild epigastric tenderness) Extremities: no edema Skin - other findings: Lower legs notable for blotchy appearance, healing wounds feet, unkempt Neurological: cranial nerve grossly intact, no focal deficits Neurological - other findings: numbness in toes, chronic Musculoskeletal: normal tone, normal strength Psychiatric: normal affect, normal behavior, A&O x 3 Hospitalist Results - Labs Result Diagrams: 03/20/19 12:20 03/20/19 12:20 Lab results: WBC 4.3 thou/uL (4.8-10.8) L 03/20/19 12:20 Hgb 9.9 g/dL (12.0-16.0) L 03/20/19 12:20 Hct 29.5 % (36.0-47.0) L 03/20/19 12:20 MCV 110.0 fL (78.0-98.0) H 03/20/19 12:20 Plt Count 89 thou/uL (130-400) L 03/20/19 12:20 Neutrophils % 77.0 % (42.0-75.0) H 03/20/19 12:20 Sodium 139 mmol/L (136-145) 03/20/19 12:20 Potassium 3.4 mmol/L (3.5-5.1) L 03/20/19 12:20 Chloride 99 mmol/L (98-107) 03/20/19 12:20 Carbon Dioxide 10 mmol/L (23-31) L 03/20/19 12:20 BUN 12 mg/dL (9.8-20.1) 03/20/19 12:20 Creatinine 1.19 mg/dL (0.6-1.1) H 03/20/19 12:20 Glucose 131 mg/dL (80-115) H 03/20/19 12:20 Calcium 9.1 mg/dL (7.8-10.44) 03/20/19 12:20 Total Bilirubin 1.8 mg/dL (0.2-1.2) H 03/20/19 12:20 AST 43 U/L (5-34) H 03/20/19 12:20 ALT 11 U/L (8-55) 03/20/19 12:20 Alkaline Phosphatase 123 U/L (40-110) H 03/20/19 12:20 Ammonia 48 umol/L (18-72) 03/20/19 12:18 Creatine Kinase 142 U/L (29-168) 03/20/19 12:20 Troponin I 0.017 ng/mL (< 0.028) 03/20/19 12:20 Serum Total Protein 7.3 g/dL (6.0-8.3) 03/20/19 12:20 Albumin 4.5 g/dL (3.4-4.8) 03/20/19 12:20 Lipase 301 U/L (8-78) H 03/20/19 12:20 - EKG Interpretation EKG: Sinus tachycardia, HR 112 - Radiology Interpretation CT scan - head Status: report reviewed by ms Hospitalist H&P A/P - Problem (1) Dehydration Code(s): E86.0 - DEHYDRATION Status: Acute (2) Ataxia Code(s): R27.0 - ATAXIA, UNSPECIFIED Status: Acute (3) Dizziness Code(s): R42 - DIZZINESS AND GIDDINESS Status: Acute (4) Abdominal pain Code(s): R10.9 - UNSPECIFIED ABDOMINAL PAIN Status: Acute (5) Shortness of breath Code(s): R06.02 - SHORTNESS OF BREATH Status: Acute (6) Anemia Code(s): D64.9 - ANEMIA, UNSPECIFIED Status: Chronic (7) Hypokalemia Code(s): E87.6 - HYPOKALEMIA Status: Acute (8) Alcohol abuse Code(s): F10.10 - ALCOHOL ABUSE, UNCOMPLICATED Status: Chronic (9) HTN (hypertension) Code(s): I10 - ESSENTIAL (PRIMARY) HYPERTENSION Status: Chronic - Plan Plan: Per patient n/v and abdo pain have improved and she has not had alcohol x 3 weeks. Contradicting info regarding alcohol intake from family reported. She is feeling slightly better. Lightheadedness and tachycardia likely due to dehydration from n/v. Add-on Mg+, BNP and TSH. Replace potassium. Thiamine, Folic acid and Multivitamin ordered. D/C heart healthy diet and change to clear liquids. Repeat LFTs and lipase in AM. Abdo US. Neuro consult. Meclizine TID. Given 1L NS in ED. Orthostatic BPs. Check stool for occult blood. ASE protocol. Urine drug screen/UA w/UCx PT/OT. Wound care/podiatry. CODE STATUS: FULL Surrogate decision maker is her Kaushik Mac.
[2019-03-20 15:10] LABS: Lactic Acid 1.5 mmol/L (0.5-2.2)
[2019-03-20] MEDS ORDERED: Magnesium Sulfate 4 GM in Sodium Chloride 0.9% 250 ML 250 ML IVPB SCH (16:00)
[2019-03-20] MEDS ORDERED: Atorvastatin Calcium 40 MG TAB PO SCH (21:00)
[2019-03-20] MEDS: Magnesium Oxide 400 MG TAB PO SCH (21:03)
[2019-03-20] MEDS: Famotidine/PF 20 mg/2ml Vial SLOW IVP SCH (21:03)
[2019-03-20 22:17] VITALS: BMI 25.9
[2019-03-21 01:39] LABS: Magnesium 1.7 mg/dL (1.6-2.6); Potassium 3.6 mmol/L (3.5-5.1)
[2019-03-21 05:22] LABS: #Lymphocytes 0.9 thou/uL (1.20-3.40); #Monocytes 0.3 thou/uL (0.11-0.59); #Neutrophils 1.9 thou/uL (1.40-6.50); %Basophils 1.3 % (0.0-1.0); %Eosinophils 1.5 % (0.0-10.0); %Lymphocytes 27.6 % (21.0-51.0); %Neutrophils 61.6 % (42.0-75.0); Hemoglobin 7.3 g/dL (12.0-16.0); Mean Corpuscular Hemoglobin 37.5 pg (27.0-31.0); Mean Platelet Volume 7.9 fL (7.4-10.4); Platelet Count 129 thou/uL (130-400); RBC Distribution Width 15.5 % (11.5-14.5); Red Blood Cell (RBC) Count 1.96 mill/uL (4.20-5.40); White Blood Cell (WBC) Count 3.1 thou/uL (4.8-10.8)
[2019-03-21 05:44] LABS: ALT (SGPT) Less than 7 U/L (8-55); AST (SGOT) 35 U/L (5-34); Albumin 3.6 g/dL (3.4-4.8); Alkaline Phosphatase 93 U/L (40-110); Anion Gap 16 mmol/L (10-20); BUN (Urea Nitrogen) 15 mg/dL (9.8-20.1); Bilirubin, Total 1.1 mg/dL (0.2-1.2); Calc. Creatinine Clearance 58 mL/min (70-130); Calcium 8.7 mg/dL (7.8-10.44); Carbon Dioxide 19 mmol/L (23-31); Chloride 105 mmol/L (98-107); Cholesterol 194 mg/dl (< 200 Desired); Estimated GFR-MDRD 55; Globulin 2.2 g/dL (2.4-3.5); Glucose 107 mg/dL (80-115); HDL Cholesterol 97 mg/dL (>60 Neg Risk); LDL Cholesterol, Calculated 82 mg/dL; Lipase 404 U/L (8-78); Magnesium 1.5 mg/dL (1.6-2.6); Potassium 3.3 mmol/L (3.5-5.1); Protein, Total 5.8 g/dL (6.0-8.3); Sodium 137 mmol/L (136-145); Triglycerides 77 mg/dL (Less than 150)
[2019-03-21 07:11] LABS: Bacteria/HPF 3+ HPF (None Seen); Bilirubin Negative (Negative); Blood, Urine Negative (Negative); Clarity Clear (Clear); Glucose, Urine (Dipstick) Normal (Negative); Leukocyte Negative Leu/uL (Negative); Nitrite 1+ (Negative); Protein, Urine (Dipstick) 10 mg/dL (Neg-Trace); RBC/HPF 0-3 HPF (0-3); Squamous Epithelial 0-3 HPF (0-3); Urobilinogen 3 mg/dL (Less than 2); WBC/HPF 0-3 HPF (0-3)
[2019-03-21 07:13] LABS: Urine Culture Reflex Yes Yes
[2019-03-21 07:19] LABS: Amphetamine Not Detected (NotDetected); Barbiturates Screen Not Detected (NotDetected); Benzodiazepine Screen Not Detected (NotDetected); Cocaine Metabolite Screen Not Detected (NotDetected); Medtox Control Line Valid? VALID (VALID); Medtox Reader # READER 1; Methadone Not Detected (NotDetected); Methamphetamine Not Detected (NotDetected); Opiate Screen Not Detected (NotDetected); Oxycodone Screen Not Detected (NotDetected); Phencyclidine (PCP) Not Detected (NotDetected); THC/Cannabinoid Screen Not Detected (NotDetected); Tricyclic Screen Not Detected (NotDetected)
[2019-03-21] MEDS ORDERED: D5 1/2 NS w/40 mEq KCL 1,000 ML IV SCH ×3 (08:15→16:37)
[2019-03-21] MEDS ORDERED: Magnesium Sulfate 4 GM in Sodium Chloride 0.9% 250 ML 250 ML IVPB SCH (08:15)
[2019-03-21] MEDS: Magnesium Oxide 400 MG TAB PO SCH ×2 (08:42→20:28)
[2019-03-21] MEDS: Thiamine 100 MG TAB PO SCH (08:42)
[2019-03-21] MEDS: Folic Acid 1 MG TAB PO SCH (08:42)
[2019-03-21 08:43] LABS: Reticulocyte Count 0.7 % (0.5-1.5)
[2019-03-21] MEDS: Multivit, Chewable SF 1 TAB PO SCH (08:43)
[2019-03-21] MEDS: Famotidine/PF 20 mg/2ml Vial SLOW IVP SCH (08:43)
[2019-03-21 08:49] LABS: Prothrombin Time 13.5 SEC (12.0-14.7)
[2019-03-21 08:50] LABS: PTT 28.5 SEC (22.9-36.1)
[2019-03-21 08:58] LABS: Iron 49 ug/dL (50-170); Iron Binding Capacity, Total 119 mcg/dL (265-497)
[2019-03-21] MEDS ORDERED: Aspirin 81 mg Enteric Coated Tablet PO SCH (09:00)
[2019-03-21] MEDS ORDERED: Prevnar 13-Val Conj/PF 0.5 ML SYRINGE IM ONE (09:00)
[2019-03-21] MEDS ORDERED: FLU VACC TS2019-20(65YR UP)/PF 180 MCG/0.5 ML SYRINGE IM ONE (09:00)
[2019-03-21 09:02] LABS: Phosphorus Less than 1.0 mg/dL (2.3-4.7)
--- NOTE | 2019-03-21 09:49 | ULT ---
ABDOMINAL ULTRASOUND: Date: 03/21/19 HISTORY: Elevated LFTs. FINDINGS: Real-time imaging of the upper abdomen was performed. This shows small stones within the gallbladder, also with a large amount of sludge within the gallbladder. The common duct is in the 6 mm range. Anastacio hnologist describes a negative ultrasound Mayers's sign. Liver is of increased echogenicity, slightly enlarged at 19.9 cm. Right and left kidneys are within normal limits of size and not obstructed. A small, approximately 1. 0 cm, right renal cyst is identified. Spleen measures 10.5 cm in length. Pancreas is obscured. Abdomi nal aorta and IVC regions appear unremarkable, other than atherosclerotic change. IMPRESSION: 1. Multiple cholelithiasis with a moderate amount of sludge also present within the gallbladder. Com mon duct upper limits of normal. 2. Fatty change of liver. POS: OFF
[2019-03-21 10:08] LABS: Ferritin 5951.28 ng/mL (10-291)
[2019-03-21] MEDS: Potassium Phosphate 15 MMOL in Sodium Chloride 0.9% 250 ML 250 ML IVPB SCH ×2 (10:54→14:15)
--- NOTE | 2019-03-21 11:30 | CT ---
CT ANGIO HEAD AND NECK PERFORMED WITH AND WITHOUT CONTRAST ENHANCEMENT WITH 3D RECONSTRUCTONS: Date: 03/21/19 HISTORY: Syncope. FINDINGS: There is generalized ventricular and sulcal prominence with decreased attenuation to the periventricu lar white matter. The lung apices are clear. CT ANGIO NECK: The thyroid gland is normal in appearance. There is no significant jugular chain adenopathy. The paro tid and submandibular gland regions appear unremarkable. Parapharyngeal spaces appear clear. There is fair arterial opacification, felt to be adequate for examination. The vertebral arteries are codominant. The right common carotid artery shows atherosclerotic plaque. There is also some atherosclerotic hatch ge at the origin of the internal carotid artery without any hemodynamically significant stenosis. I w ould estimate the narrowing to be less than 50% by NASCET criteria. On the left side, there is a separate origin of the left common carotid artery from the aortic arch. Once again, there is some moderate atherosclerotic plaque at the origin of the left internal carotid artery, with less than 50% narrowing by NASCET criteria. CT ANGIO HEAD: The anterior and middle cerebral arteries and their branches appear fairly unremarkable. The A1 segme nt of the right anterior cerebral artery is small. No intraluminal thrombus. The vertebrobasilar system appears unremarkable. IMPRESSION: Atherosclerotic change at the origin of both internal carotid arteries without hemodynamically signif icant stenosis. POS: OFF
--- NOTE | 2019-03-21 12:36 | CON ---
DATE OF TELEMEDICINE CONSULTATION: 03/21/2019 CHIEF COMPLAINT: Dizziness. HISTORY OF PRESENT ILLNESS: The patient reports she has had some stomach issues. Her mobility was off. She is also being dehydrated. She stated she has been dizzy. It sounds like the room was spinning and completely resolved now. She had a prior episode 6 months ago. She has no tingling. No tinnitus. No weakness, numbness , double vision, or loss of consciousness. No nausea or vomiting is noted. PAST MEDICAL HISTORY: Blood pressure fluctuation, alcohol use, and a chronic basis breast mass on the left side, which was treated with antibiotics. PAST SURGICAL HISTORY: She had a surgery for her left ankle and left shoulder after fall. Ankle surgery was 10 years ago. SOCIAL HISTORY: She does not smoke. She drinks alcohol regularly. She has been off for 2 weeks per the patient, but family member contradict that history. She was in alcohol rehab as well in the past. FAMILY HISTORY: Mother had CVA, at age 61. Father at age 84. She is pretty healthy otherwise. LABORATORY DATA: White count 3.1, hemoglobin 7.3, hematocrit 21, and platelet count 129. Coags normal. Chemistry; sodium 137, potassium 3.3, chloride 105, bicarb 19, BUN 15, creatinine 1, and lipid profile within normal limits. She has light bases elevated at 404 and ferritin 59.51. IAMGING STUDIES: CT of the head shows small vessel ischemic changes and CT of the [place] was also ordered by me and it did not show any. She has mild atherosclerotic changes, but no hemodynamically significant stenosis. PHYSICAL EXAMINATION: VITAL SIGNS: Temperature 98.1, pulse 124, respiratory rate 16, and O2 sats 100% . ORTHOSTATIC VITAL SIGNS: Reviewed and they are within normal limits. Blood pressure 104/59. GENERAL APPEARANCE: Well-built, well-nourished lady. CHEST: Clear. Vesicular breathing. CARDIOVASCULAR: S1-S2 heard. No murmurs. ABDOMEN: Soft. NEUROLOGIC: Examination higher intellectual function, normal orientation to time, place, and person. Appropriate conversation. Cranial nerves 2 -12 normal. Pupils 2 mm, reactive to light. Normal extraocular movements. Tongue midline. No atrophy noted. Normal elevation of palate. Motor exam; bulk normal, tone normal. Strength 5/5 throughout in upper and lower extremities in iliopsoas, hamstrings, quadriceps, ankle dorsiflexion, plantar flexion, deltoid, biceps, triceps, wrist extension and flexion, finger extension and flexion bilaterally. Deep tendon reflexes 1+ throughout. Sensory normal. Cerebellar normal. IMPRESSION: The patient is a 64-year-old lady with dizziness of unclear etiology. It completely resolved at this time. I do not think she has any undiagnosed CVA. Her CT angio is also negative. I think this dizziness could be secondary to inner ear dysfunction and could be vertigo recommendations please refer her to ENT physician as outpatient. I am not going to start her on any anti-platelet agents at this time. Job ID: [id number] [facility]
--- NOTE | 2019-03-21 13:34 | PDOC.HOSPP ---
- Subjective Encounter Date: 03/21/19 Encounter Time: 08:30 Subjective: Patient seen and examined for Gen weakness. No new focal deficits. No new complaints. No overnight events - Objective Vital Signs & Weight: Vital Signs (12 hours) Temp Pulse Pulse Pulse Pulse Pulse Resp 03/21/19 11:44 98.1 F 124 H 16 03/21/19 11:00 109 H 125 H 140 H 114 H 03/21/19 10:54 03/21/19 08:00 03/21/19 07:59 98.4 F 98 16 03/21/19 04:36 98.8 F 94 20 BP BP BP BP BP BP BP 03/21/19 11:44 104/59 L 03/21/19 11:00 110/55 L 104/59 L 95/49 L 122/64 03/21/19 10:54 104/59 L 95/49 L 03/21/19 08:00 03/21/19 07:59 125/71 03/21/19 04:36 121/77 BP Pulse Ox 03/21/19 11:44 100 03/21/19 11:00 03/21/19 10:54 110/55 L 03/21/19 08:00 100 03/21/19 07:59 100 03/21/19 04:36 100 Weight Weight 146 lb 8 oz I&O: 03/20/19 03/21/19 03/22/19 06:59 06:59 06:59 Intake Total 1134 Balance 1134 Result Diagrams: 03/21/19 04:46 03/21/19 04:46 Additional Labs: Laboratory Tests 03/21/19 03/21/19 04:46 08:24 Phosphorus Less than 1.0 L Magnesium 1.5 L Radiology Reviewed by me: Yes (CT brain - no CVA) EKG Reviewed by me: Yes (Tele SR) Hospitalist ROS - Review of Systems Respiratory: denies: cough, dry, shortness of breath, hemoptysis, SOB with excertion, pleuritic pain, sputum, wheezing, other Cardiovascular: denies: chest pain, palpitations, orthopnea, paroxysmal noc. dyspnea, edema, light headedness, other - Medication Medications: Active Medications Generic Name Dose Route Start Last Admin Trade Name Freq PRN Reason Stop Dose Admin Acetaminophen 650 mg 03/20/19 14:40 03/20/19 22:32 Tylenol PO 650 mg Q4H PRN Administration Headache/Fever/Mild Pain (1-3) Folic Acid 1 mg 03/21/19 09:00 03/21/19 08:42 Folvite PO 1 mg DAILY JOHNNA Administration Magnesium Oxide 400 mg 03/20/19 21:00 03/21/19 08:42 Magnesium Oxide PO 400 mg BID JOHNNA Administration Multivitamins 1 tab 03/21/19 09:00 03/21/19 08:43 Multivit, Chewable Sf PO 1 tab DAILY JOHNNA Administration Thiamine HCl 100 mg 03/21/19 09:00 03/21/19 08:42 Thiamine PO 100 mg DAILY JOHNNA Administration - Exam General Appearance: NAD Neck: supple, no JVD Heart: RRR, no gallops, no rubs, normal peripheral pulses Respiratory: no wheezes, no rales, no ronchi, normal chest expansion Gastrointestinal: soft, non-tender, non-distended, normal bowel sounds Extremities: no edema Neurological: no new deficit Psychiatric: normal affect, A&O x 3 Hosp A/P - Plan DVT proph w/SCDs Gen weakness/Gait imbalance (POA) N/V/Abd pain due to ?Alcoholic Gastritis Elevated lipase - prob due to mild alcoholic Pancreatitis OANH (POA) Hypokalemia/Hypomagnesaemia/Hypophosphatemia (POA) Metabolic acidosis due to Starvation ketosis (POA) Chronic alcoholism Pancytopenia - prob due to alcoholism Sinus tachycardia (POA) Gout PLAN: Replace Magnesium/Potassium/Phosphorus Adjust IVF Check ketones/Vit B12/Folic acid/Coag profile AM labs Await Neuro input CT brain - No CVA Cont PT/OT Ambulate Alcohol withdrawal protocol Monitor
[2019-03-21 14:28] LABS: Hemoglobin 7.1 g/dL (12.0-16.0)
[2019-03-21] MEDS ORDERED: Iopamidol 370 76% 100 ML VIAL ONE (14:33)
[2019-03-21] MEDS: PHOS-NAK 1 PKT PACK PO SCH (17:12)
[2019-03-21] MEDS: Pantoprazole 40 MG VIAL IVP SCH (20:28)
[2019-03-22 05:30] LABS: #Eosinphils 0.1 thou/uL (0.0-0.7); #Monocytes 0.2 thou/uL (0.11-0.59); #Neutrophils 2.2 thou/uL (1.40-6.50); %Basophils 0.3 % (0.0-1.0); %Eosinophils 2.5 % (0.0-10.0); %Lymphocytes 27.7 % (21.0-51.0); %Monocytes 6.3 % (0.0-10.0); %Neutrophils 63.1 % (42.0-75.0); Hemoglobin 9.2 g/dL (12.0-16.0); Mean Corpuscular HGB CONC 30.6 g/dL (32.0-36.0); Mean Corpuscular Hemoglobin 31.8 pg (27.0-31.0); Mean Platelet Volume 9.4 fL (7.4-10.4); Platelet Count 50 thou/uL (130-400); RBC Distribution Width 19.3 % (11.5-14.5); Red Blood Cell (RBC) Count 2.89 mill/uL (4.20-5.40); White Blood Cell (WBC) Count 3.5 thou/uL (4.8-10.8)
[2019-03-22 05:35] LABS: ALT (SGPT) Less than 7 U/L (8-55); AST (SGOT) 28 U/L (5-34); Albumin 3.8 g/dL (3.4-4.8); Alkaline Phosphatase 97 U/L (40-110); Anion Gap 16 mmol/L (10-20); BUN (Urea Nitrogen) 13 mg/dL (9.8-20.1); Bilirubin, Total 0.8 mg/dL (0.2-1.2); Calc. Creatinine Clearance 76 mL/min (70-130); Carbon Dioxide 18 mmol/L (23-31); Chloride 106 mmol/L (98-107); Estimated GFR-MDRD 76; Globulin 2.4 g/dL (2.4-3.5); Glucose 121 mg/dL (80-115); Lipase 449 U/L (8-78); Magnesium 1.5 mg/dL (1.6-2.6); Potassium 3.6 mmol/L (3.5-5.1); Protein, Total 6.2 g/dL (6.0-8.3); Sodium 136 mmol/L (136-145)
[2019-03-22 05:39] LABS: Phosphorus Less than 1.0 mg/dL (2.3-4.7)
[2019-03-22] MEDS: Potassium Chloride 40 MEQ in Sodium Chloride 0.45% 1,000 ML IV SCH ×2 (06:10→21:59)
[2019-03-22] MEDS ORDERED: Potassium Phosphate 15 MMOL in Sodium Chloride 0.9% 250 ML 250 ML IVPB SCH (06:30)
[2019-03-22] MEDS ORDERED: Magnesium Chloride 64 MG TAB PO SCH (09:00)
[2019-03-22] MEDS: Folic Acid 1 MG TAB PO SCH (09:31)
[2019-03-22] MEDS: Pantoprazole 40 MG VIAL IVP SCH (09:31)
[2019-03-22] MEDS: Thiamine 100 MG TAB PO SCH (09:31)
[2019-03-22] MEDS: Cyanocobalamin (Vitamin B-12) 1,000 MCG TAB PO SCH (09:31)
[2019-03-22] MEDS: Magnesium Oxide 400 MG TAB PO SCH (09:31)
[2019-03-22] MEDS: Multivit, Chewable SF 1 TAB PO SCH (09:31)
[2019-03-22] MEDS: PHOS-NAK 1 PKT PACK PO SCH ×2 (09:32→18:06)
[2019-03-22] MEDS ORDERED: Metoprolol Tartrate 25 MG TAB PO SCH (12:00)
--- NOTE | 2019-03-22 15:23 | PDOC.HOSPP ---
- Subjective Encounter Date: 03/22/19 Encounter Time: 07:00 Subjective: Patient seen and examined for Gen weakness. No new focal deficits. Feeling better. No new complaints. No overnight events - Objective Vital Signs & Weight: Vital Signs (12 hours) Temp Pulse Pulse Resp BP BP BP 03/22/19 13:25 100 138/76 142/77 H 03/22/19 11:45 99.2 F 94 16 144/79 H 03/22/19 07:56 99.2 F 100 16 142/72 H 03/22/19 03:51 98.1 F 81 20 BP Pulse Ox 03/22/19 13:25 03/22/19 11:45 98 03/22/19 07:56 100 03/22/19 03:51 153/81 H 100 Weight Admit Weight 146 lb 8 oz Weight 146 lb 8 oz I&O: 03/21/19 03/22/19 03/23/19 06:59 06:59 06:59 Intake Total 1134 522 Balance 1134 522 Result Diagrams: 03/22/19 05:03 03/22/19 05:03 EKG Reviewed by me: Yes (Tele SR) Hospitalist ROS - Review of Systems Respiratory: denies: cough, dry, shortness of breath, hemoptysis, SOB with excertion, pleuritic pain, sputum, wheezing, other Cardiovascular: denies: chest pain, palpitations, orthopnea, paroxysmal noc. dyspnea, edema, light headedness, other - Medication Medications: Active Medications Generic Name Dose Route Start Last Admin Trade Name Freq PRN Reason Stop Dose Admin Acetaminophen 650 mg 03/20/19 14:40 03/20/19 22:32 Tylenol PO 650 mg Q4H PRN Administration Headache/Fever/Mild Pain (1-3) Cyanocobalamin 1,000 mcg 03/22/19 09:00 03/22/19 09:31 Vitamin B-12 PO 1,000 mcg DAILY JOHNNA Administration Folic Acid 1 mg 03/21/19 09:00 03/22/19 09:31 Folvite PO 1 mg DAILY JOHNNA Administration Potassium Chloride 40 meq/ 1,020 mls @ 50 mls/hr 03/22/19 00:01 03/22/19 06: 10 Sodium Chloride IV 1,020 mls .[id number] JOHNNA Administration Miscellaneous Medication 1 pkt 03/21/19 17:00 03/22/19 09:32 Phos-Nak PO 1 pkt BID-WM JOHNNA Administration Multivitamins 1 tab 03/21/19 09:00 03/22/19 09:31 Multivit, Chewable Sf PO 1 tab DAILY JOHNNA Administration Thiamine HCl 100 mg 03/21/19 09:00 12 09:31 Thiamine PO 100 mg DAILY JOHNNA Administration - Exam General Appearance: NAD Heart: RRR, no gallops Respiratory: CTAB, no rales Gastrointestinal: soft, non-distended, normal bowel sounds Extremities: no edema Neurological: no new deficit Hosp A/P - Plan DVT proph w/SCDs Gen weakness/Gait imbalance N/V/Abd pain due to ?Alcoholic Gastritis Elevated lipase - prob due to mild alcoholic Pancreatitis OANH Anemia of chronic disease s/p 1 unit PRBC Hypokalemia/Hypomagnesaemia/Hypophosphatemia Metabolic acidosis due to Starvation ketosis Chronic alcoholism Pancytopenia - prob due to alcoholism Sinus tachycardia Gout Cholelithiases Asymptomatic bacteriuria PLAN: Replace Magnesium/Phosphorus Cont IVF Resume Metoprolol No need for Atbx for asymptomatic bacteriuria Neuro input appreciated CT brain/CTA reviewed - No CVA Cont PT/OT Ambulate Cont Alcohol withdrawal protocol AM labs
[2019-03-22] MEDS: Metoprolol Tartrate 25 MG TAB PO SCH (22:06)
[2019-03-22] MEDS: Magnesium Chloride 64 MG TAB PO SCH (22:06)
[2019-03-23 05:46] LABS: Albumin 3.7 g/dL (3.4-4.8); Anion Gap 14 mmol/L (10-20); BUN (Urea Nitrogen) 9 mg/dL (9.8-20.1); BUN/Creatinine Ratio 15.52; Calc. Creatinine Clearance 100 mL/min (70-130); Carbon Dioxide 20 mmol/L (23-31); Chloride 105 mmol/L (98-107); Estimated GFR-MDRD Greater than 90; Glucose 96 mg/dL (80-115); Phosphorus 1.4 mg/dL (2.3-4.7); Potassium 4.6 mmol/L (3.5-5.1); Sodium 134 mmol/L (136-145)
[2019-03-23] MEDS ORDERED: Sodium Phosphate 15 MMOL in Sodium Chloride 0.9% 250 ML 250 ML IVPB SCH (07:15)
[2019-03-23] MEDS: Thiamine 100 MG TAB PO SCH (09:01)
[2019-03-23] MEDS: Folic Acid 1 MG TAB PO SCH (09:01)
[2019-03-23] MEDS: Multivit, Chewable SF 1 TAB PO SCH ×2 (09:03→09:23)
[2019-03-23] MEDS: Cyanocobalamin (Vitamin B-12) 1,000 MCG TAB PO SCH (09:03)
[2019-03-23] MEDS: Magnesium Chloride 64 MG TAB PO SCH ×2 (09:03→20:47)
[2019-03-23] MEDS: Allopurinol 100 MG TAB PO SCH (09:03)
[2019-03-23] MEDS: Metoprolol Tartrate 25 MG TAB PO SCH ×2 (09:03→20:47)
[2019-03-23] MEDS: PHOS-NAK 1 PKT PACK PO SCH ×3 (09:04→16:51)
[2019-03-23] MEDS ORDERED: cloNIDine 0.1 MG TAB PO PRN (10:19)
[2019-03-23] MEDS: cefTRIAXone\\ROCEPHIN 1 GM in Sodium Chloride 0.9% 100 ML IVPB SCH (11:59)
--- NOTE | 2019-03-23 13:08 | PDOC.HOSPP ---
- Subjective Encounter Date: 03/23/19 Encounter Time: 09:00 Subjective: Patient seen and examined for Gen weakness. Intermittent confusion per RN. No new complaints. No overnight events - Objective Vital Signs & Weight: Vital Signs (12 hours) Temp Pulse Resp BP BP Pulse Ox 03/23/19 11:45 98.7 F 91 20 139/85 99 03/23/19 07:32 99 F 94 20 145/83 H 95 03/23/19 06:00 140/82 03/23/19 04:00 98.4 F 79 16 140/82 100 03/23/19 02:00 164/86 H Weight Admit Weight 146 lb 8 oz Weight 146 lb 8 oz I&O: 03/22/19 03/23/19 03/24/19 06:59 06:59 06:59 Intake Total 522 720 300 Balance 522 720 300 Result Diagrams: 03/22/19 05:03 03/23/19 05:20 EKG Reviewed by me: Yes (Tele SR) Hospitalist ROS - Review of Systems Respiratory: denies: cough, dry, shortness of breath, hemoptysis, SOB with excertion, pleuritic pain, sputum, wheezing, other Cardiovascular: denies: chest pain, palpitations, orthopnea, paroxysmal noc. dyspnea, edema, light headedness, other - Medication Medications: Active Medications Generic Name Dose Route Start Last Admin Trade Name Freq PRN Reason Stop Dose Admin Acetaminophen 650 mg 03/20/19 14:40 03/20/19 22:32 Tylenol PO 650 mg Q4H PRN Administration Headache/Fever/Mild Pain (1-3) Allopurinol 100 mg 03/23/19 09:00 03/23/19 09:03 Zyloprim PO 100 mg DAILY JOHNNA Administration Cyanocobalamin 1,000 mcg 03/22/19 09:00 03/23/19 09:03 Vitamin B-12 PO 1,000 mcg DAILY JOHNNA Administration Folic Acid 1 mg 03/21/19 09:00 03/23/19 09:01 Folvite PO 1 mg DAILY JOHNNA Administration Sodium Phosphate 15 mmol/ 255 mls @ 42.5 mls/hr 03/23/19 07:15 03/23/19 07:15 Sodium Chloride IVPB 03/23/19 13:14 255 mls NOW JOHNNA Administration Ceftriaxone Sodium 1 gm/ 100 mls @ 200 mls/hr 03/23/19 11:00 03/23/19 11:59 Sodium Chloride IVPB 100 mls 1100 JOHNNA Administration Magnesium Chloride 128 mg 03/22/19 21:00 03/23/19 09:03 Slow-Mag PO 128 mg BID JOHNNA Administration Metoprolol Tartrate 25 mg 03/22/19 21:00 03/23/19 09:03 Lopressor PO 25 mg BID JOHNNA Administration Miscellaneous Medication 1 pkt 03/23/19 08:00 03/23/19 11:59 Phos-Nak PO 1 pkt TID-WM JOHNNA Administration Pantoprazole Sodium 40 mg 03/23/19 09:00 03/23/19 09:04 Protonix PO 40 mg DAILY JOHNNA Administration Thiamine HCl 100 mg 03/21/19 09:00 03/23/19 09:01 Thiamine PO 100 mg DAILY JOHNNA Administration - Exam General Appearance: NAD Heart: RRR, no gallops Respiratory: no wheezes, no rales Gastrointestinal: soft, non-tender, non-distended, normal bowel sounds Extremities: no edema Neurological: no new deficit Hosp A/P - Plan DVT proph w/SCDs Gen weakness/Gait imbalance Toxic Metabolic Encephalopathy - prob due to alcohol withdrawal vs UTI N/V/Abd pain due to ?Alcoholic Gastritis - improving Elevated lipase - prob due to mild alcoholic Pancreatitis - resolved OANH - improved Anemia of chronic disease s/p 1 unit PRBC Hypokalemia/Hypomagnesaemia/Hypophosphatemia Metabolic acidosis due to Starvation ketosis Chronic alcoholism Pancytopenia - prob due to alcoholism Sinus tachycardia Gout Cholelithiases Asymptomatic bacteriuria vs UTI Hyponatremia PLAN: Replace Phosphorus - 1.4 today Start IV Atbx Add Librium DC IVF Cont Metoprolol/ASE protocol and other meds as above Cont Alcohol withdrawal protocol with Ativan Outpt ENT f/u per Neuro DC planning
[2019-03-23] MEDS: cloNIDine 0.1 MG TAB PO SCH (20:46)
[2019-03-24 08:14] LABS: Hemoglobin 8.4 g/dL (12.0-16.0); Platelet Count 125 thou/uL (130-400)
[2019-03-24 08:34] LABS: Albumin 3.5 g/dL (3.4-4.8); Anion Gap 16 mmol/L (10-20); BUN (Urea Nitrogen) 11 mg/dL (9.8-20.1); BUN/Creatinine Ratio 18.33; Calc. Creatinine Clearance 97 mL/min (70-130); Calcium 9.1 mg/dL (7.8-10.44); Carbon Dioxide 20 mmol/L (23-31); Chloride 103 mmol/L (98-107); Estimated GFR-MDRD Greater than 90; Glucose 122 mg/dL (80-115); Phosphorus 3.8 mg/dL (2.3-4.7); Potassium 4.2 mmol/L (3.5-5.1); Sodium 135 mmol/L (136-145)
[2019-03-24] MEDS: PHOS-NAK 1 PKT PACK PO SCH ×3 (09:20→17:22)
[2019-03-24] MEDS: Magnesium Chloride 64 MG TAB PO SCH ×2 (09:23→20:25)
[2019-03-24] MEDS: cloNIDine 0.1 MG TAB PO SCH ×2 (09:25→20:24)
[2019-03-24] MEDS: Metoprolol Tartrate 25 MG TAB PO SCH ×2 (09:27→20:25)
[2019-03-24] MEDS: Folic Acid 1 MG TAB PO SCH (09:29)
[2019-03-24] MEDS: Allopurinol 100 MG TAB PO SCH (09:30)
[2019-03-24] MEDS: Thiamine 100 MG TAB PO SCH (09:31)
[2019-03-24] MEDS: Cyanocobalamin (Vitamin B-12) 1,000 MCG TAB PO SCH (09:35)
[2019-03-24] MEDS: Multivit, Therapeutic 1 TAB PO SCH (09:36)
[2019-03-24] MEDS: cefTRIAXone\\ROCEPHIN 1 GM in Sodium Chloride 0.9% 100 ML IVPB SCH (11:25)
--- NOTE | 2019-03-24 14:13 | PDOC.HOSPP ---
- Subjective Encounter Date: 03/24/19 Encounter Time: 14:12 Subjective: Ms. Mac was seen today in follow-up of abdominal pain, and altered mental status. Both of these have essentially resolved. She notes a little weakness, but otherwise ok. - Objective Vital Signs & Weight: Vital Signs (12 hours) Temp Pulse Pulse Pulse Resp BP BP 03/24/19 12:05 137/76 03/24/19 11:33 98 F 92 16 03/24/19 11:00 96 96 137/76 03/24/19 09:25 126/70 03/24/19 09:16 126/70 03/24/19 07:53 98.9 F 108 H 20 03/24/19 04:00 140/82 03/24/19 03:53 98.3 F 95 16 BP BP BP Pulse Ox 03/24/19 12:05 03/24/19 11:33 137/76 99 03/24/19 11:00 116/75 03/24/19 09:25 03/24/19 09:16 100 03/24/19 07:53 126/70 100 03/24/19 04:00 03/24/19 03:53 140/82 99 Weight Admit Weight 146 lb 8 oz Weight 146 lb 8 oz I&O: 03/23/19 03/24/19 03/25/19 06:59 06:59 06:59 Intake Total 720 1130 Balance 720 1130 Result Diagrams: 03/24/19 08:01 03/24/19 08:01 Hospitalist ROS - Medication Medications: Active Medications Generic Name Dose Route Start Last Admin Trade Name Freq PRN Reason Stop Dose Admin Acetaminophen 650 mg 03/20/19 14:40 03/20/19 22:32 Tylenol PO 650 mg Q4H PRN Administration Headache/Fever/Mild Pain (1-3) Allopurinol 100 mg 03/23/19 09:00 03/24/19 09:30 Zyloprim PO 100 mg DAILY JOHNNA Administration Chlordiazepoxide HCl 10 mg 03/23/19 15:00 03/24/19 09:28 Librium PO 10 mg TID JOHNNA Administration Clonidine 0.1 mg 03/23/19 21:00 03/24/19 09:25 Catapres PO 0.1 mg BID JOHNNA Administration Cyanocobalamin 1,000 mcg 03/22/19 09:00 03/24/19 09:35 Vitamin B-12 PO 1,000 mcg DAILY JOHNNA Administration Folic Acid 1 mg 03/21/19 09:00 03/24/19 09:29 Folvite PO 1 mg DAILY JOHNNA Administration Ceftriaxone Sodium 1 gm/ 100 mls @ 200 mls/hr 03/23/19 11:00 03/24/19 11:25 Sodium Chloride IVPB 100 mls 1100 JOHNNA Administration Magnesium Chloride 128 mg 03/22/19 21:00 03/24/19 09:23 Slow-Mag PO 128 mg BID JOHNNA Administration Metoprolol Tartrate 25 mg 03/22/19 21:00 03/24/19 09:27 Lopressor PO 25 mg BID JOHNNA Administration Miscellaneous Medication 1 pkt 03/23/19 08:00 03/24/19 11:30 Phos-Nak PO 1 pkt TID-WM JOHNNA Administration Multivitamins 1 tab 03/24/19 09:00 03/24/19 09:36 Theragran PO 1 tab DAILY JOHNNA Administration Pantoprazole Sodium 40 mg 03/23/19 09:00 03/24/19 09:33 Protonix PO 40 mg DAILY JOHNNA Administration Thiamine HCl 100 mg 03/21/19 09:00 03/24/19 09:31 Thiamine PO 100 mg DAILY JOHNNA Administration - Exam Eye: PERRL, anicteric sclera Heart: RRR, no murmur, no gallops, no rubs, normal peripheral pulses Respiratory: CTAB, no wheezes, no rales, no ronchi, normal chest expansion, no tachypnea, normal percussion Gastrointestinal: soft, non-tender, non-distended, normal bowel sounds, no palpable masses, no hepatomegaly Extremities: no cyanosis Hosp A/P (1) Abdominal pain Code(s): R10.9 - UNSPECIFIED ABDOMINAL PAIN Status: Acute (2) Alcohol abuse Code(s): F10.10 - ALCOHOL ABUSE, UNCOMPLICATED Status: Chronic (3) HTN (hypertension) Code(s): I10 - ESSENTIAL (PRIMARY) HYPERTENSION Status: Chronic (4) UTI (urinary tract infection) Status: Acute Qualifiers: Urinary tract infection type: acute cystitis Hematuria presence: without hematuria Qualified Code(s): N30.00 - Acute cystitis without hematuria - Plan * Abdominal pain- resolved * UTI- the urine culture is growing both E. Coli and Klebsiella, there are sensitive to Rocephin * Encephalopathy- resolved- possible alcohol withdrawal * HTN- blood pressure is stable * Awaiting Home Health arrangements
[2019-03-25] MEDS: PHOS-NAK 1 PKT PACK PO SCH ×2 (08:33→11:09)
[2019-03-25] MEDS: Allopurinol 100 MG TAB PO SCH (08:35)
[2019-03-25] MEDS: Cyanocobalamin (Vitamin B-12) 1,000 MCG TAB PO SCH (08:37)
[2019-03-25] MEDS: Folic Acid 1 MG TAB PO SCH (08:38)
[2019-03-25] MEDS: cloNIDine 0.1 MG TAB PO SCH (08:39)
[2019-03-25] MEDS: Metoprolol Tartrate 25 MG TAB PO SCH (08:40)
[2019-03-25] MEDS: Thiamine 100 MG TAB PO SCH (08:40)
[2019-03-25] MEDS: Multivit, Therapeutic 1 TAB PO SCH (08:41)
[2019-03-25] MEDS: Magnesium Chloride 64 MG TAB PO SCH (11:08)
[2019-03-25] MEDS: cefTRIAXone\\ROCEPHIN 1 GM in Sodium Chloride 0.9% 100 ML IVPB SCH (11:11)
[2019-03-25 11:49] VITALS: TEMP 98.5
[2019-03-25 11:53] VITALS: BP 126/71
--- NOTE | 2019-03-25 12:21 | PDOC.HOSPP ---
- Subjective Encounter Date: 03/25/19 Encounter Time: 12:19 Subjective: Ms. Mac was seen today in follow-up of metabolic encephalopathy. She does not have any complaints today. She says she had a " good physical therapy session" yesterday. Her is at bedside. I asked her about senior living in his presence, and she again refused, and says she wants home health. - Objective Vital Signs & Weight: Vital Signs (12 hours) Temp Pulse Resp BP BP Pulse Ox 03/25/19 11:50 94 126/71 03/25/19 11:48 98.5 F 90 14 90/57 L 99 03/25/19 08:39 116/77 03/25/19 08:30 116/77 98 03/25/19 07:29 98.8 F 108 H 22 H 116/77 100 03/25/19 04:00 97.9 F 116 H 16 103/58 L 103/58 L 99 Weight Admit Weight 146 lb 8 oz Weight 146 lb 8 oz I&O: 03/24/19 03/25/19 03/26/19 06:59 06:59 06:59 Intake Total 1130 870 Balance 1130 870 Result Diagrams: 03/24/19 08:01 03/24/19 08:01 Hospitalist ROS - Medication Medications: Active Medications Generic Name Dose Route Start Last Admin Trade Name Freq PRN Reason Stop Dose Admin Acetaminophen 650 mg 03/20/19 14:40 03/20/19 22:32 Tylenol PO 650 mg Q4H PRN Administration Headache/Fever/Mild Pain (1-3) Allopurinol 100 mg 03/23/19 09:00 03/25/19 08:35 Zyloprim PO 100 mg DAILY JOHNNA Administration Chlordiazepoxide HCl 10 mg 03/23/19 15:00 03/25/19 08:37 Librium PO 10 mg TID JOHNNA Administration Clonidine 0.1 mg 03/23/19 21:00 03/25/19 08:39 Catapres PO 0.1 mg BID JOHNNA Administration Cyanocobalamin 1,000 mcg 03/22/19 09:00 03/25/19 08:37 Vitamin B-12 PO 1,000 mcg DAILY JOHNNA Administration Folic Acid 1 mg 03/21/19 09:00 03/25/19 08:38 Folvite PO 1 mg DAILY JOHNNA Administration Ceftriaxone Sodium 1 gm/ 100 mls @ 200 mls/hr 03/23/19 11:00 03/25/19 11:11 Sodium Chloride IVPB 100 mls 1100 JOHNNA Administration Magnesium Chloride 128 mg 03/22/19 21:00 03/25/19 11:08 Slow-Mag PO 128 mg BID JOHNNA Administration Metoprolol Tartrate 25 mg 03/22/19 21:00 03/25/19 08:40 Lopressor PO 25 mg BID JOHNNA Administration Miscellaneous Medication 1 pkt 03/23/19 08:00 03/25/19 11:09 Phos-Nak PO 1 pkt TID-WM JOHNNA Administration Multivitamins 1 tab 03/24/19 09:00 03/25/19 08:41 Theragran PO 1 tab DAILY JOHNNA Administration Pantoprazole Sodium 40 mg 03/23/19 09:00 03/25/19 08:38 Protonix PO 40 mg DAILY JOHNNA Administration Sodium Chloride 10 ml 03/20/19 14:40 03/25/19 08:41 Flush - Normal Saline IVF 10 ml Q12HR PRN Administration Saline Flush Thiamine HCl 100 mg 03/21/19 09:00 03/25/19 08:40 Thiamine PO 100 mg DAILY JOHNNA Administration - Exam Eye: PERRL Heart: RRR, no murmur, no gallops, no rubs, normal peripheral pulses Respiratory: CTAB, no wheezes, no rales, no ronchi, normal chest expansion Gastrointestinal: soft, non-tender, non-distended, normal bowel sounds, no palpable masses, no hepatomegaly Extremities: no cyanosis Hosp A/P (1) Abdominal pain Code(s): R10.9 - UNSPECIFIED ABDOMINAL PAIN Status: Acute (2) Alcohol abuse Code(s): F10.10 - ALCOHOL ABUSE, UNCOMPLICATED Status: Chronic (3) HTN (hypertension) Code(s): I10 - ESSENTIAL (PRIMARY) HYPERTENSION Status: Chronic (4) UTI (urinary tract infection) Status: Acute Qualifiers: Urinary tract infection type: acute cystitis Hematuria presence: without hematuria Qualified Code(s): N30.00 - Acute cystitis without hematuria (5) Metabolic encephalopathy Code(s): G93.41 - METABOLIC ENCEPHALOPATHY Status: Acute - Plan * Metabolic encephalopathy- resolved * UTI- the urine culture is growing both E. Coli and Klebsiella, there are sensitive to Rocephin * HTN- blood pressure is stable * Home with Home health- hopefully today
--- NOTE | 2019-03-27 00:10 | PQF ---
ROSALIO BACH TONI MD [id number] [address] [place] [address] [id number] CLINICAL DOCUMENTATION CLARIFICATION FORM: POST DISCHARGE Addendum to original discharge summary date: ____ Late entry note date: __ DATE: 03/27/19 ATTN: Robbi Kelly Please exercise your independent, professional judgment in responding to the clarification form. Clinical indicators are provided on the bottom of this form for your review In your clinical opinion based on clinical findings below, can you please indentify condition as the reason for Inpatient admission if due to: Please check appropriate box(s): [ ] Acute Renal Failure [ ] Acute Cystitis [ ] Dehydration [ ] Hypokalemia [ ] Alcohol Gastritis [ ] Other diagnosis [ ] Unable to determine In addition, please specify: Present on Admission (POA): [ ] Yes [ ] No [ ] Unable to determine For continuity of documentation, please document condition throughout progress notes and discharge summary. Thank You. CLINICAL INDICATORS - SIGNS / SYMPTOMS / LABS Hospitalist H&P p1 03/20 [place] PERE[place] Compliants of nausea, vomiting and abdominal pain that started 5 days ago Hospitalist H&P p1 03/20 [place] PERE[place] She states she began to feel lightheaded and SOB with any acticity since 3-4 days ago Hospitalist H&P p1 03/20 [place] PATTERSONC Pt reporttedly has continue to drink alcohol but according to the patient she has not had any alcohol for 3 weeks. States she previously had 2 mixed vodka drinks a day Hospitalist H&P p1 03/20 [place] PEREZ Labs notable for K+ 3.4, Na+ 139, BUN 12, Crea 1.19, GFR 45, alcohol level <10 Hospitalist H&P p5 03/20 [place] PEREZ Lightheadednes and tachycardia likely due to dehydration from n/v Hospitalist H&P p4 03/21 Dr Galaviz n/v/abd pain due to alcoholic gastritis Hospitalist H&P p4 03/21 Dr Galaviz Elevated lipase prob due to mild alcoholic pancreatits RISK FACTORS Hospitalist H&P p4 03/20 - Dehydration Hospitalist H&P p4 03/20 - Hypokalemia Hospitalist H&P p4 03/20 - Hypokalemia Hospitalist PN p4 03/21 - OANH (POA) Hospitalist PN p4 03/21 - Hypokalemia/Hypomagnesemia/Hypophosphatemia Hospitalist PN p4 03/21 - Chronic Alcoholism Hospitalist PN p4 03/21 - Chronic Alcoholism Hospitalist PN p54 03/24 - UTI with Ecoli and Klebsiella Hospitalist PN p54 03/24 - Encephalopathy TREATMENTS: Hospitalist H&P p1 03/20 - Banana bag Hospitalist H&P p1 03/20 - Given 1L of NS Hospitalist H&P p1 03/20 - Aspirin 324 mg given Hospitalist H&P p503/20 - Potassium replacement Hospitalist H&P p503/20 - Clear liquids diet Hospitalist H&P p503/20 - Repeat LFTs and lipase MAR IV Rocephin (This form is maintained as a part of the permanent medical record) 2014 [employer] All Rights Reserved [email or web address] [not provided] MTDD
--- NOTE | 2019-03-27 00:14 | PQF ---
ROSALIO BACH TONI MD [id number] [address] [place] [address] [id number] CLINICAL DOCUMENTATION CLARIFICATION FORM: POST DISCHARGE Addendum to original discharge summary date: ____ Late entry note date: __ DATE: 03/27/19 ATTN: Robbi Kelly Please exercise your independent, professional judgment in responding to the clarification form. Clinical indicators are provided on the bottom of this form for your review Please check appropriate box(s): Alcoholic Pancreatitis [ ] Acute [ ] Chronic [ ] Recurrent [ ] Other diagnosis [ ] Unable to determine In addition, please specify: Present on Admission (POA): [ ] Yes [ ] No [ ] Unable to determine For continuity of documentation, please document condition throughout progress notes and discharge summary. Thank You. CLINICAL INDICATORS - SIGNS / SYMPTOMS / LABS Hospitalist H&P p1 03/20 [place] PEREZ Compliants of nausea, vomiting and abdominal pain that started 5 days ago Hospitalist H&P p1 03/20 [place] PEREZ She states she began to feel lightheaded and SOB with any acticity since 3-4 days ago Hospitalist H&P p1 03/20 [place] PEREZ Pt reporttedly has continue to drink alcohol but according to the patient she has not had any alcohol for 3 weeks. States she previously had 2 mixed vodka drinks a day Hospitalist H&P p1 03/20 [place] PEREZ Labs notable for K+ 3.4, Na+ 139, BUN 12, Crea 1.19, GFR 45, alcohol level <10 RISK FACTORS Hospitalist H&P p4 03/20 - Dehydration Hospitalist H&P p4 03/20 - Hypokalemia Hospitalist PN p4 03/21 - OANH (POA) Hospitalist PN p4 03/21 - Hypokalemia/Hypomagnesemia/Hypophosphatemia Hospitalist PN p4 03/21 - Chronic Alcoholism TREATMENT: Hospitalist H&Hospitalist H&P p1 03/20 - Banana bag Hospitalist H&P p1 03/20 - Given 1L of NS Hospitalist H&P p503/20 - Potassium replacement Hospitalist H&P p503/20 - Clear liquids diet (This form is maintained as a part of the permanent medical record) 2014 [employer]. All Rights Reserved [email or web address] [not provided] MTDD
--- NOTE | 2019-03-27 00:16 | PQF ---
ROSALIO BACH TONI MD [id number] [address] [place] [address] [id number] CLINICAL DOCUMENTATION CLARIFICATION FORM: POST DISCHARGE Addendum to original discharge summary date: ____ Late entry note date: __ DATE: 03/27/19 ATTN: Robbi Kelly Please exercise your independent, professional judgment in responding to the clarification form. Clinical indicators are provided on the bottom of this form for your review Please check appropriate box(es): [ ] Sepsis due to UTI [ ] SIRS due to non-infectious process (please specify etiology) [ ] with organ dysfunction [ ] without organ dysfunction [ ] Severe sepsis with acute organ dysfunction of: (Examples: respiratory failure, encephalopathy, acute kidney failure, other) [ ] Septic Shock [ ] Localized infection without sepsis [ ] Other diagnosis [ ] Unable to determine In addition, please specify: Present on Admission (POA): [ ] Yes [ ] No [ ] Unable to determine For continuity of documentation, please document condition throughout progress notes and discharge summary. Thank You. CLINICAL INDICATORS - SIGNS / SYMPTOMS / LABS Vital signs 03/20 BP 117/58, Pulse 105, Temp 99.7 Laboratory Hematology 03/20 WBC 4.3 Hospitalist H&P p1 03/20 [place] PEREZ Complaints of nausea, vomiting and abdominal pain that started 5 days ago Hospitalist H&P p1 03/20 [place] PEREZ She states she began to feel lightheaded and SOB with any acticity since 3-4 days ago Hospitalist H&P p1 03/20 [place] PEREZ Pt reportedly has continue to drink alcohol but according to the patient she has not had any alcohol for 3 weeks. States she previously had 2 mixed vodka drinks a day Hospitalist H&P p1 03/20 [place] PA-C Labs notable for K+ 3.4, Na+ 139, BUN 12, Crea 1.19, GFR 45, alcohol level <10 Hospitalist H&P p5 03/20 [place] PA-C Lightheadedness and tachycardia likely due to dehydration from n/v Hospitalist H&P p4 03/21 Dr Galaviz n/v/abd pain due to alcoholic gastritis Hospitalist H&P p4 03/21 Dr Galaviz Elevated lipase prob due to mild alcoholic pancreatits RISK FACTORS Hospitalist H&P p4 03/20 - Dehydration Hospitalist H&P p4 03/20 - Hypokalemia Hospitalist H&P p4 03/20 - Hypokalemia Hospitalist PN p4 03/21 - OANH (POA) Hospitalist PN p4 03/21 - Hypokalemia/Hypomagnesemia/Hypophosphatemia Hospitalist PN p4 03/21 - Chronic Alcoholism Hospitalist PN p4 03/21 - Chronic Alcoholism Hospitalist PN p54 03/24 - UTI with Ecoli and Klebsiella Hospitalist PN p54 03/24 - Encephalopathy TREATMENTS: Hospitalist H&P p1 03/20 - Banana bag Hospitalist H&P p1 03/20 - Given 1L of NS Hospitalist H&P p1 03/20 - Aspirin 324 mg given Hospitalist H&P p503/20 - Potassium replacement Hospitalist H&P p503/20 - Clear liquids diet Hospitalist H&P p503/20 - Repeat LFTs and lipase MAR IV Rocephin (This form is maintained as a part of the permanent medical record) 2014 [employer] All Rights Reserved [email or web address] [not provided] MTDD
--- NOTE | 2019-03-27 10:40 | DIS ---
DATE OF ADMISSION: 03/20/2019 DATE OF DISCHARGE: 03/25/2019 PRIMARY CARE PHYSICIAN: Lorraine Storm MD DISCHARGE DISPOSITION: Home with home health. DISCHARGE DIAGNOSES: 1. Metabolic encephalopathy. 2. Alcohol abuse. 3. Urinary tract infection. 4. Pancytopenia secondary to alcoholism. 5. Gout. 6. Hypertension. DISCHARGE MEDICATIONS: Include; 1. Vitamin B 100 mg daily. 2. Klor-Con 10 mEq p.o. daily. 3. 1 tablet daily. 4. Metoprolol 25 mg p.o. b.i.d. 5. Folic acid 1 mg daily. 6. Vitamin B12 1000 mcg p.o. daily. 7. Omnicef 300 mg p.o. twice a day. 8. Allopurinol 100 mg daily. 9. Protonix 40 mg daily. 10. Slow magnesium 128 mg twice a day. IMAGING STUDIES: During the hospital stay, the patient had a CT scan of the brain showing small vessel disease and no intracranial hemorrhage. The patient had a CT angiogram of the [place] and of the neck showing some arthrosclerotic change at the origin of both of the internal carotid arteries, but there was no hemodynamically significant stenosis. CODE STATUS: Full code. ALLERGIES: NO KNOWN DRUG ALLERGIES. HOSPITAL COURSE: Ms. Mac is a pleasant -kxav-idc female, who was brought to the hospital after she was having problems with nausea, vomiting, dizziness, and ataxic gait. There was concern initially for possible TIA or stroke and a CT scan of the brain was done as well as a CT angiogram, both of which were essentially negative. After further evaluation, it was felt that her symptoms are likely related to alcohol abuse. She was seen by Neurology as well. She was also found to have urinary tract infection, the urine cultures of which grew Klebsiella and E coli. She was treated with Rocephin for this and then transitioned to Omnicef. Both of these organisms are sensitive to Rocephin. She was offered [facility] as well as a rehab screen. However, she said that she would not go to either a skilled facility or rehab facility. She was requesting home with home health. Due to the hol week, she will have to have this set up by her primary care physician. She was seen by Physical Therapy and felt safe to go home at this time. The patient was counseled on alcohol abuse. She also declined any type of referral from our Case Management with regard to treatment facilities for alcohol abuse. The patient is therefore discharged home on 03/25, and is to have close outpatient followup. Job ID: [id number]
== END 2019-03-25 16:03 | disposition home health service (06) | DRG 808 ==
LOC: ERS 10:44 → OBSVTOIN 14:54 → ERHOLD 14:54 → 2SE 18:19
PROVIDERS: ADMIT Internal Medicine; ATTEND Internal Medicine
PROC: 3E0234Z Introduction of Serum, Toxoid and Vaccine into Muscle, Percutaneous Approach (ICD-10-PCS; principal; 2019-03-21)
PROC: 3E02340 Introduction of Influenza Vaccine into Muscle, Percutaneous Approach (ICD-10-PCS; 2019-03-21)
PROC: 30233N1 Transfusion of Nonautologous Red Blood Cells into Peripheral Vein, Percutaneous Approach (ICD-10-PCS; 2019-03-21)
DX: D61.818 Other pancytopenia (principal); G93.41 Metabolic encephalopathy; N17.9 Acute kidney failure, unspecified; N30.00 Acute cystitis without hematuria; E87.2 Acidosis; E87.1 Hypo-osmolality and hyponatremia; F10.288 Alcohol dependence with other alcohol-induced disorder; K29.20 Alcoholic gastritis without bleeding; I10 Essential (primary) hypertension; Y90.0 Blood alcohol level of less than 20 mg/100 ml; E86.0 Dehydration; E87.6 Hypokalemia; E83.42 Hypomagnesemia; T73.0XXA Starvation, initial encounter; X58.XXXA Exposure to other specified factors, initial encounter; M10.9 Gout, unspecified; E83.39 Other disorders of phosphorus metabolism; D63.8 Anemia in other chronic diseases classified elsewhere; B96.20 Unspecified Escherichia coli [E. coli] as the cause of diseases classified elsewhere; K80.20 Calculus of gallbladder without cholecystitis without obstruction; B96.1 Klebsiella pneumoniae [K. pneumoniae] as the cause of diseases classified elsewhere; Z23 Encounter for immunization; Z87.891 Personal history of nicotine dependence; Z79.899 Other long term (current) drug therapy
CPT/HCPCS: 36415; 36430; 70450; 70496; 70498; 71045; 80053; 80061; 80069; 80306; 80307; 81001; 82010; 82140; 82150; 82550; 82607; 82728; 82746; 83540; 83550; 83605; 83690; 83735; 83880; 84100; 84443; 84478; 84484; 85014; 85018; 85025; 85046; 85049; 85610; 85730; 86850; 86900; 86901; 87040; 87077; 87086; 87186; 90471; 90662; 90670; 93005; 93975; 96365; 96366; C9113; G0008; G0009; J0696; J3411; J3475; J3480; J3490; J7042; J7050; P9016; Q0162; Q9967; S0028

== ENCOUNTER 2019-05-08 14:37 | Observation (INO) | payer BC ==
[2019-05-08 16:10] VITALS: BMI 28.8
[2019-05-08] MEDS ORDERED: Calcium Carbonate 500 MG ChewTAB PO PRN (18:35)
[2019-05-08] MEDS ORDERED: Ondansetron PF 4 MG/2 ML Vial IVP PRN (18:35)
[2019-05-08] MEDS ORDERED: predniSONE 20 MG TAB PO SCH (18:45)
--- NOTE | 2019-05-08 18:46 | PDOC.HHP ---
Hospitalist HPI - History of Present Illness Left hand cellulitis History of Present Illness: Mr. Mac is a 64-year-old lady with past medical history of hypertension, tophaceous gout, chronic alcoholism who presented to the physicians [facility] ED in [place] for left hand swelling. She states over the past 2 days she is noticed increased swelling and pain of her left hand and left wrist. She has not noticed any fever or chills but noted that the hand became hot, extremely red, and increased swelling on the dorsal aspect of the hand. She apparently has chronic gout for which she takes allopurinol 200 mg daily for many years. She states that normally she gets a gout flare up in her toes. Additionally, she denies any trauma or foreign body to the hand within the past 2 days. Additionally, she has been in an alcohol detox program and has been sober for the past 3 weeks. She is currently on Librium therapy. Hospitalist ROS - Review of Systems Constitutional: denies: fever, chills, sweats, weakness, malaise, other Eyes: denies: pain, vision change, conjunctivae inflammation, eyelid inflammation, redness, other ENT: denies: ear pain, ear discharge, nose pain, nose discharge, nose congestion , mouth pain, mouth swelling, throat pain, throat swelling, other Respiratory: denies: cough, dry, shortness of breath, hemoptysis, SOB with excertion, pleuritic pain, sputum, wheezing, other Cardiovascular: denies: chest pain, palpitations, orthopnea, paroxysmal noc. dyspnea, edema, light headedness, other Gastrointestinal: denies: nausea, vomiting, abdominal pain, diarrhea, constipation, melena, hematochezia, other Genitourinary: denies: dysuria, frequency, incontinence, hematuria, retention, other Musculoskeletal: reports: hand pain. denies: neck pain, shoulder pain, arm pain , back pain, leg pain, foot pain, other Skin: denies: rash, lesions, prem, bruising, other Neurological: denies: weakness, numbness, incoordination, change in speech, confusion, seizures, other - Medication Medications: Allopurinol 200 mg oral daily Folic acid 1 tablet oral daily Librium 1 tablet oral daily Magnesium chloride 1 tablet oral daily Metoprolol 25 mg oral twice daily Omeprazole 20 mg oral daily Potassium chloride 10 mEq oral daily Hospitalist History - Past Medical History Cardiac: reports: HTN Pulmonary: reports: no pertinent history RADIO TECHNICIAN: reports: no pertinent history Gastrointestinal: reports: no pertinent history Heme/Onc: reports: no pertinent history Hepatobiliary: reports: no pertinent history Psych: reports: no pertinent history, Addictions (Hx of alcohol abuse) Musculoskeletal: reports: no pertinent history Rheumatologic: reports: Gout Infectious Disease: reports: no pertinent history ENT: reports: no pertinent history Renal/: reports: no pertinent history Endocrine: reports: no pertinent history - Past Surgical History Past Surgical History: reports: Other (Left shoulder surgery) - Family History Family History: reports: no pertinent history - Social History Smoking Status: Former smoker Alcohol: reports: Heavy (until 3 weeks ago (per patient) inconsistent with what family reported to ED) Drugs: reports: none Living Situation: With Family Activity level: independent ambulation - Exam General Appearance: NAD, ill appearing Eye: PERRL, anicteric sclera ENT: normocephalic atraumatic, no oropharyngeal lesions, moist mucosa Neck: supple, symmetric, no JVD, no thyromegaly, no lymphadenopathy, no carotid bruit Heart: RRR, no murmur, no gallops, no rubs, normal peripheral pulses Respiratory: CTAB, no wheezes, no rales, no ronchi, normal chest expansion, no tachypnea, normal percussion Gastrointestinal: soft, non-tender, non-distended, normal bowel sounds, no palpable masses, no hepatomegaly, no splenomegaly, no bruit Extremities: no cyanosis, no clubbing, no edema Extremities - other findings: Left hand erythema, tender to palpation, tophi of gout on LE/UE hands/TOES Skin: normal turgor, no lesions, no rashes Neurological: cranial nerve grossly intact, normal sensation to touch, no weakness, no focal deficits, no new deficit Musculoskeletal: normal tone, normal strength, no muscle wasting Psychiatric: normal affect, normal behavior, A&O x 3 Hospitalist Results - Labs Lab results: Ammonia 35 umol/L (18-72) 05/08/19 18:18 Additional comment: Labs reported from [facility] Sodium 133 Potassium 4.4 Chloride 106 Glucose 100 Calcium 10 BUN 16 Creatinine 0.4 GFR greater than 60 ALT/AST 15/40 T bili/0.6 Albumin 3.2 WBC 5.8 RBCs 2.8 Hemoglobin 9.2 MCV 97.2 Hematocrit 27.2 - EKG Interpretation EKG: EKG shows normal sinus rhythm, no ST-T wave changes, event rate is 69 bpm, QRS of 92 ms Hospitalist H&P A/P - Problem (1) Cellulitis of left hand Code(s): L03.114 - CELLULITIS OF LEFT UPPER LIMB Status: Acute (2) Gout flare Code(s): M10.9 - GOUT, UNSPECIFIED Status: Acute (3) Tophaceous arthritis Code(s): M1A.9XX1 - CHRONIC GOUT, UNSPECIFIED, WITH TOPHUS (TOPHI) Status: Acute (4) Chronic alcoholism Code(s): F10.20 - ALCOHOL DEPENDENCE, UNCOMPLICATED Status: Acute (5) Debility Code(s): R53.81 - OTHER MALAISE Status: Acute - Plan Plan: For medical observation. We will obtain in-house labs including ESR, CRP, uric acid, CBC, CMP Empiric cefazolin 2 g IV every 8 for management of cellulitis, obtain blood cultures Indomethacin 75 mg x 3 days for treatment of gout flare We will obtain an x-ray of the left hand PT/OT We will resume her home Librium for her alcohol detox once it has been reconciled. DVT prophylaxis: SCDs CODE STATUS: Full code ACP: is the surrogate decision-maker Disposition: Treatment and management of cellulitis and gout flare.
[2019-05-08 18:48] LABS: CRP (Inflammatory) 2.26 mg/dL (= or < 0.5); Magnesium 1.2 mg/dL (1.6-2.6)
[2019-05-08 18:51] LABS: ALT (SGPT) 9 U/L (8-55); AST (SGOT) 30 U/L (5-34); Albumin 3.9 g/dL (3.4-4.8); Alkaline Phosphatase 81 U/L (40-110); Anion Gap 16 mmol/L (10-20); BUN (Urea Nitrogen) 21 mg/dL (9.8-20.1); Bilirubin, Total 0.5 mg/dL (0.2-1.2); Calc. Creatinine Clearance 78 mL/min (70-130); Calcium 10.2 mg/dL (7.8-10.44); Carbon Dioxide 24 mmol/L (23-31); Chloride 102 mmol/L (98-107); Estimated GFR-MDRD 67; Globulin 3.2 g/dL (2.4-3.5); Glucose 95 mg/dL (80-115); Lipase 84 U/L (8-78); Protein, Total 7.1 g/dL (6.0-8.3); Sodium 138 mmol/L (136-145)
[2019-05-08 18:52] LABS: #Basophils 0.1 thou/uL (0.0-0.2); #Eosinphils 0.2 thou/uL (0.0-0.7); #Lymphocytes 1.5 thou/uL (1.20-3.40); #Monocytes 0.5 thou/uL (0.11-0.59); #Neutrophils 4.3 thou/uL (1.40-6.50); %Basophils 0.9 % (0.0-1.0); %Eosinophils 3.6 % (0.0-10.0); %Lymphocytes 22.9 % (21.0-51.0); %Monocytes 7.8 % (0.0-10.0); Elliptocytes SLIGHT = 2-5 cells (100X) (0-1/hpf); Hemoglobin 10.8 g/dL (12.0-16.0); Hypochromia SLIGHT = 6-15 cells (100X) (0-5/hpf); Large Platelets SLIGHT; MDiff Complete? YES; Macrocytosis SLIGHT = 6-15 cells (100X) (0-5/hpf); Mean Corpuscular HGB CONC 32.4 g/dL (32.0-36.0); Mean Platelet Volume 9.6 fL (7.4-10.4); Platelet Count 183 thou/uL (130-400); Platelet Morphology Comment Appears Adequate; RBC Distribution Width 15.7 % (11.5-14.5); Red Blood Cell (RBC) Count 3.07 mill/uL (4.20-5.40); Schistocytes SLIGHT = 2-5 cells (100X) (0-1/hpf); White Blood Cell (WBC) Count 6.6 thou/uL (4.8-10.8)
--- NOTE | 2019-05-08 20:46 | RAD ---
XR Hand Lt 3 View STANDARD: 05/08/2019 6:38 PM CLINICAL INDICATION: Left hand swelling and left hand cellulitis COMPARISON: None. FINDINGS: Bones: No acute osseous abnormality. Joints: Scattered osteoarthrosis, most prominent at the first CMC joint. Soft Tissue: IV cannula within the radial soft tissues of the left wrist. There is diffuse soft tissu e swelling of the hand and wrist. IMPRESSION: Diffuse soft tissue swelling of the left hand and wrist. No acute osseous abnormality. Scattered oste oarthrosis of the left hand and wrist.
[2019-05-08] MEDS: Acetaminophen 325 MG TAB PO PRN (20:53)
[2019-05-08] MEDS: CEFAZOLIN 2 GM in Premix Bag 1 BAG IVPB SCH (21:00)
[2019-05-08 21:11] LABS: Lactic Acid 1.3 mmol/L (0.5-2.2)
[2019-05-09] MEDS: HYDROcodone/Acetaminophen 5/325 mg Tablet PO PRN ×3 (01:51→15:43)
[2019-05-09] MEDS: CEFAZOLIN 2 GM in Premix Bag 1 BAG IVPB SCH ×2 (05:28→15:00)
[2019-05-09 05:40] LABS: #Eosinphils 0.2 thou/uL (0.0-0.7); #Lymphocytes 1.5 thou/uL (1.20-3.40); #Monocytes 0.7 thou/uL (0.11-0.59); %Basophils 0.8 % (0.0-1.0); %Eosinophils 3.8 % (0.0-10.0); %Lymphocytes 28.3 % (21.0-51.0); Hemoglobin 9.5 g/dL (12.0-16.0); Mean Corpuscular HGB CONC 33.3 g/dL (32.0-36.0); Mean Corpuscular Hemoglobin 35.1 pg (27.0-31.0); Mean Platelet Volume 9.5 fL (7.4-10.4); Platelet Count 176 thou/uL (130-400); RBC Distribution Width 15.6 % (11.5-14.5); Red Blood Cell (RBC) Count 2.72 mill/uL (4.20-5.40); White Blood Cell (WBC) Count 5.4 thou/uL (4.8-10.8)
[2019-05-09 06:02] LABS: Anion Gap 15 mmol/L (10-20); BUN (Urea Nitrogen) 26 mg/dL (9.8-20.1); Calc. Creatinine Clearance 93 mL/min (70-130); Calcium 9.6 mg/dL (7.8-10.44); Carbon Dioxide 23 mmol/L (23-31); Chloride 104 mmol/L (98-107); Estimated GFR-MDRD 81; Glucose 110 mg/dL (80-115); Potassium 4.1 mmol/L (3.5-5.1); Sodium 138 mmol/L (136-145)
[2019-05-09] MEDS: Indomethacin 75 mg SR Capsule PO SCH (09:11)
--- NOTE | 2019-05-09 10:17 | PDOC.HOSPP ---
- Subjective Encounter Date: 05/09/19 Encounter Time: 13:00 Subjective: Patient with persistent pain, swelling, and warmth in the left hand. She states that it appears unchanged to her, but on my exam the redness appears to be retreating from the line drawn earlier. - Objective Vital Signs & Weight: Vital Signs (12 hours) Temp Pulse Resp BP Pulse Ox 05/09/19 08:00 98.2 F 97 20 109/75 98 05/09/19 04:34 99.2 F 87 16 111/74 97 05/09/19 00:49 98.1 F 89 16 106/71 96 Weight Weight 168 lb 3.2 oz I&O: 05/08/19 05/09/19 05/10/19 06:59 06:59 06:59 Intake Total 890 Output Total 800 Balance 90 Result Diagrams: 05/09/19 05:25 05/09/19 05:25 Hospitalist ROS - Review of Systems Constitutional: denies: fever, chills Respiratory: denies: cough, shortness of breath Cardiovascular: denies: chest pain, palpitations, orthopnea Gastrointestinal: denies: nausea, vomiting, abdominal pain - Medication Medications: Active Medications Generic Name Dose Route Start Last Admin Trade Name Freq PRN Reason Stop Dose Admin Acetaminophen 650 mg 05/08/19 18:35 05/08/19 20:53 Tylenol PO 650 mg Q4H PRN Administration Headache/Fever/Mild Pain (1-3) Hydrocodone Bitart/Acetaminophen 1 tab 05/08/19 18:35 05/09/19 06:05 [place] 5/325 PO 1 tab Q4H PRN Administration Moderate Pain (4-6) Cefazolin Sodium/Dextrose 2 gm 50 mls @ 100 mls/hr 05/08/19 22:00 05/09/19 05 :28 / Device IVPB 50 mls Q8HR JOHNNA Administration Indomethacin 75 mg 05/09/19 09:00 05/09/19 09:11 Indocin Sr PO 05/11/19 23:59 75 mg DAILY JOHNNA Administration - Exam General Appearance: NAD, awake alert ENT: moist mucosa Heart: RRR, no murmur, no gallops, no rubs Respiratory: CTAB, no wheezes, no rales, no ronchi Gastrointestinal: soft, non-tender, non-distended, normal bowel sounds Extremities - other findings: TTP, warmth, red over left ulnar hand and wrist Psychiatric: normal affect, normal behavior, A&O x 3 Hosp A/P (1) Cellulitis of left hand Code(s): L03.114 - CELLULITIS OF LEFT UPPER LIMB Status: Suspected (2) Gout flare Code(s): M10.9 - GOUT, UNSPECIFIED Status: Acute (3) Tophaceous arthritis Code(s): M1A.9XX1 - CHRONIC GOUT, UNSPECIFIED, WITH TOPHUS (TOPHI) Status: Chronic (4) Chronic alcoholism Code(s): F10.20 - ALCOHOL DEPENDENCE, UNCOMPLICATED Status: Acute (5) Debility Code(s): R53.81 - OTHER MALAISE Status: Acute (6) HTN (hypertension) Code(s): I10 - ESSENTIAL (PRIMARY) HYPERTENSION Status: Chronic Qualifiers: Hypertension type: essential hypertension Qualified Code(s): I10 - Essential (primary) hypertension - Plan WBC normal, elevated Uric acid (though lower than last year) and elevated CRP. Suspect gout flair. Will consult Ortho. If they think reasonable we can d/c the antibiotics and continue with encouraging fluids, pain control, antiinflamatories.
[2019-05-09] MEDS ORDERED: Allopurinol 100 MG TAB PO SCH (10:45)
[2019-05-09] MEDS: Metoprolol Tartrate 25 MG TAB PO SCH (20:02)
[2019-05-09] MEDS: Magnesium Chloride 64 MG TAB PO SCH (20:02)
--- NOTE | 2019-05-09 21:14 | CON ---
DATE OF CONSULTATION: 05/09/2019 This is Lakhwinder Kaplan PA-C dictating a report for Jhonny Acosta MD. REQUESTING PHYSICIAN: Dr. Gerard Ray. CONSULTING PHYSICIAN: Dr. Jhonny Acosta. REASON FOR CONSULTATION: Left hand swelling. BRIEF CLINICAL HISTORY: Mercy is a 64-year-old female, who was admitted by the Medicine Service to the hospital yesterday forced abrupt swelling of the left hand with discomfort and pain. She has a history of tophaceous gout and chronic alcoholism. According to the patient, she said that the erythema and swelling came on within 6 to 8 hours and became incredibly painful. She presented to the emergency room, was admitted to the hospital by the Medicine Team. She has received IV antibiotics as well as IV fluids and plain radiographs of the left wrist and hand were obtained and our service was consulted for evaluation of the redness and swelling for differentiation between cellulitis and possible gout. PAST MEDICAL HISTORY: Significant for chronic alcoholism; history of gout, for which she takes allopurinol. No trauma precedes the onset. She has been in an alcohol detox program for the last 3 to 4 weeks. She denies any recent ethanol use. PHYSICAL EXAMINATION: Visual inspection of left upper extremity demonstrates to have demarcations on the distal forearm dorsally and also on the digits. She has tophaceous changes of the PIP joints and MCP joints, but no valgus or varus deformity . The hand is a little bit tender dorsally. This skin is swollen diffusely and soft, but there are no tenseness and there is no significant erythema at this time. In fact, it has a moreover ruborous postinflammatory appearance to it. She is neurovascularly intact in the left upper extremity. Charge Account Clerk strength is intact. IMPRESSION: I suspect this is an acute gouty flare of the left wrist and dorsal hand. The abrupt onset as well as abrupt near resolution is indicative of this. She has not had any fevers and this is cleared so quickly with Indocin treatment. She has never had any constitutional symptoms. So at this point, we are pretty comfortable that this is an acute gouty flare. The patient will be significantly better within the next 24 hours. PLAN: Continue current care. We will recheck the patient tomorrow morning on rounds just to be sure, but at this point, no surgical recommendations are recommended. Give consideration to discontinuance of antibiotics, but continue with pain control as well as indomethacin. Job ID: [id number]
[2019-05-10] MEDS: Magnesium Chloride 64 MG TAB PO SCH (08:37)
[2019-05-10] MEDS: Metoprolol Tartrate 25 MG TAB PO SCH (08:38)
[2019-05-10] MEDS: Acetaminophen 325 MG TAB PO PRN (08:38)
[2019-05-10] MEDS: Indomethacin 75 mg SR Capsule PO SCH (08:39)
--- NOTE | 2019-05-10 08:54 | PDOC.HOSPP ---
- Subjective Encounter Date: 05/10/19 Encounter Time: 13:30 Subjective: Pain improved, redness improved. Ready to go home. - Objective Vital Signs & Weight: Vital Signs (12 hours) Temp Pulse Resp BP Pulse Ox 05/10/19 07:54 99.5 F 102 H 20 120/79 97 05/10/19 03:43 98.7 F 78 18 113/68 92 L 05/09/19 23:29 98.7 F 92 18 110/73 96 Weight Weight 168 lb 3.2 oz I&O: 05/09/19 05/10/19 05/11/19 06:59 06:59 06:59 Intake Total 890 450 Output Total 800 Balance 90 450 Result Diagrams: 05/09/19 05:25 05/09/19 05:25 Hospitalist ROS - Review of Systems Constitutional: denies: fever, chills Respiratory: denies: cough, shortness of breath Cardiovascular: denies: chest pain, palpitations, orthopnea Gastrointestinal: denies: nausea, vomiting, abdominal pain Genitourinary: denies: dysuria, hematuria - Medication Medications: Active Medications Generic Name Dose Route Start Last Admin Trade Name Freq PRN Reason Stop Dose Admin Acetaminophen 650 mg 05/08/19 18:35 05/10/19 08:38 Tylenol PO 650 mg Q4H PRN Administration Headache/Fever/Mild Pain (1-3) Hydrocodone Bitart/Acetaminophen 1 tab 05/08/19 18:35 05/09/19 15:43 [place] 5/325 PO 1 tab Q4H PRN Administration Moderate Pain (4-6) Allopurinol 100 mg 05/10/19 09:00 05/09/19 11:08 Zyloprim PO 100 mg DAILY JOHNNA Administration Cyanocobalamin 1,000 mcg 05/10/19 09:00 05/10/19 08:38 Vitamin B-12 PO 1,000 mcg DAILY JOHNNA Administration Folic Acid 1 mg 05/10/19 09:00 05/10/19 08:38 Folvite PO 1 mg DAILY JOHNNA Administration Indomethacin 75 mg 05/09/19 09:00 05/10/19 08:39 Indocin Sr PO 05/11/19 23:59 75 mg DAILY JOHNNA Administration Magnesium Chloride 128 mg 05/09/19 21:00 05/10/19 08:37 Slow-Mag PO 128 mg BID JOHNNA Administration Metoprolol Tartrate 25 mg 05/09/19 21:00 05/10/19 08:38 Lopressor PO 25 mg BID JOHNNA Administration Multivitamins 1 tab 05/10/19 09:00 05/10/19 08:37 Theragran PO 1 tab DAILY JOHNNA Administration Pantoprazole Sodium 40 mg 05/10/19 09:00 05/10/19 08:38 Protonix PO 40 mg DAILY JOHNNA Administration Potassium Chloride 10 meq 05/10/19 09:00 05/10/19 08:39 Klor-Con 10 PO 10 meq DAILY JOHNNA Administration Thiamine HCl 100 mg 05/10/19 09:00 05/10/19 08:38 Thiamine PO 100 mg DAILY JOHNNA Administration - Exam General Appearance: NAD, awake alert ENT: moist mucosa Heart: RRR, no murmur, no gallops, no rubs Respiratory: CTAB, no wheezes, no rales, no ronchi Gastrointestinal: soft, non-tender, non-distended, normal bowel sounds Extremities - other findings: central area still a bit red, but no longer warm, mod TTP, markedly improve Psychiatric: normal affect, normal behavior, A&O x 3 Hosp A/P (1) Cellulitis of left hand Code(s): L03.114 - CELLULITIS OF LEFT UPPER LIMB Status: Ruled-out (2) Gout flare Code(s): M10.9 - GOUT, UNSPECIFIED Status: Acute (3) Tophaceous arthritis Code(s): M1A.9XX1 - CHRONIC GOUT, UNSPECIFIED, WITH TOPHUS (TOPHI) Status: Chronic (4) Chronic alcoholism Code(s): F10.20 - ALCOHOL DEPENDENCE, UNCOMPLICATED Status: Acute (5) Debility Code(s): R53.81 - OTHER MALAISE Status: Acute (6) HTN (hypertension) Code(s): I10 - ESSENTIAL (PRIMARY) HYPERTENSION Status: Chronic Qualifiers: Hypertension type: essential hypertension Qualified Code(s): I10 - Essential (primary) hypertension - Plan WBC normal, elevated Uric acid (though lower than last year) and elevated CRP. Suspect gout flair. D/c'd abx with ortho recommendation, continued with encouraging fluids, pain control, antiinflamatories. D/C home today.
[2019-05-10] MEDS ORDERED: Thiamine 100 MG TAB PO SCH (09:00)
[2019-05-10] MEDS ORDERED: Allopurinol 100 MG TAB PO SCH (09:00)
[2019-05-10] MEDS ORDERED: Multivit, Therapeutic 1 TAB PO SCH (09:00)
[2019-05-10] MEDS ORDERED: Cyanocobalamin (Vitamin B-12) 1,000 MCG TAB PO SCH (09:00)
[2019-05-10] MEDS ORDERED: Folic Acid 1 MG TAB PO SCH (09:00)
[2019-05-10] MEDS ORDERED: Potassium Chloride 10 MEQ TAB PO SCH (09:00)
[2019-05-10 11:18] VITALS: BP 106/70; TEMP 98.4
--- NOTE | 2019-05-11 02:38 | DIS ---
DATE OF ADMISSION: 05/08/2019 DATE OF DISCHARGE: 05/10/2019 PRIMARY CARE PHYSICIAN: Dr. Mesha Wagner. REASON FOR ADMISSION: Left hand cellulitis. DIAGNOSES AT DISCHARGE: 1. Acute gouty arthritis of the left hand without cellulitis. 2. Tophaceous arthritis. 3. Chronic alcoholism. 4. Debility. 5. Hypertension. PROCEDURES: X-ray of the left hand showing soft tissue swelling, but no acute osseous abnormalities. CONSULTATIONS: Orthopedics, Dr. Acosta. SUMMARY OF HOSPITAL COURSE: This is a 64-year-old white female with a history of tophaceous gout and chronic alcoholism, who has been sober for the past 3 weeks, who had 2 days of swelling and pain in the left hand, left wrist. No systemic symptoms, but the hand was hot red. She is on chronic allopurinol for her gout. She presented to the emergency room, found to have no leukocytosis, no fever. She was put on antibiotics and put on observation in the hospital. She was also started on indomethacin. I did have consulted with Dr. Acosta to confirm whether this was a simple gouty flare. He did concur that this was an acute flare of gout and not infections, so all antibiotics were discontinued. The redness, warmth, and swelling markedly improved over the 24 hours after the start of the indomethacin and the patient was doing much better at time of discharge. Blood cultures were also drawn, which came back negative. DISCHARGE MANAGEMENT: Discharged home. ACTIVITY: As tolerated. DIET: Healthy heart diet. FOLLOWUP: Follow up with [facility] as needed and with Dr. Wagner in 7 days. DISCHARGE MEDICATIONS: 1. Indomethacin 75 mg daily, five capsules dispensed. 2. Tramadol 50 mg every 4 hours as needed for pain, 15 tablets dispensed. 3. Allopurinol 100 mg daily. 4. Vitamin B12 of 1000 mcg daily. 5. Folic acid 1 mg daily. 6. Magnesium chloride 128 mg twice a day. 7. Metoprolol tartrate 25 mg twice a day. 8. Theragran one tablet daily. 9. Protonix 40 mg daily. 10. Potassium chloride 10 mEq daily. 11. Thiamine 100 mg daily. Job ID: [id number]
== END 2019-05-10 14:48 | disposition home or self-care (01) ==
LOC: T4-B 14:37
PROVIDERS: ADMIT Internal Medicine; ATTEND Emergency Medicine
DX: M1A.9XX1 Chronic gout, unspecified, with tophus (tophi) (principal); F10.21 Alcohol dependence, in remission; R53.81 Other malaise; I10 Essential (primary) hypertension; M19.032 Primary osteoarthritis, left wrist; Z87.891 Personal history of nicotine dependence; Z79.899 Other long term (current) drug therapy
CPT/HCPCS: 36415; 80048; 80053; 82140; 82607; 82746; 83605; 83690; 83735; 84550; 85025; 85652; 86140; 87040; 96365; 96366; G0378; J0690

== ENCOUNTER 2019-09-11 07:45 | Inpatient (IN) | payer BC, OTHER ==
[2019-09-11 08:31] LABS: Mean Corpuscular HGB CONC 32.7 g/dL (32.0-36.0); Mean Corpuscular Hemoglobin 37.2 pg (27.0-31.0); Red Blood Cell (RBC) Count 2.69 mill/uL (4.20-5.40); White Blood Cell (WBC) Count 5.6 thou/uL (4.8-10.8)
[2019-09-11 08:40] LABS: INR-International Normal Ratio 1.5; PTT 38.1 sec (22.9-36.1); Prothrombin Time 17.9 sec (12.0-14.7)
--- NOTE | 2019-09-11 08:42 | RAD ---
EXAM: 2 views of the left hip HISTORY: Left hip pain COMPARISON: None FINDINGS: 2 views of the left hip shows no evidence of acute fracture or dislocation. No degenerative changes are seen. No soft tissue swelling is present. IMPRESSION: No evidence of acute osseous abnormality.
--- NOTE | 2019-09-11 08:43 | RAD ---
EXAM: Single view of the chest HISTORY: Cough and fall COMPARISON: None FINDINGS: Single view of the chest shows a normal sized cardiomediastinal silhouette. There is no julian dence of consolidation, mass, or pleural effusion. Degenerative changes are seen in the spine. Hardware seen in the left humerus. IMPRESSION: No evidence of acute cardiopulmonary disease
--- NOTE | 2019-09-11 08:43 | RAD ---
Exam: Single view of the pelvis HISTORY: Pelvic and left hip pain after fall COMPARISON: None FINDINGS: A single view the pelvis shows no evidence of acute fracture or dislocation. No degenerativ e changes seen in either hip. IMPRESSION: No evidence of acute osseous abnormality.
[2019-09-11 08:44] LABS: Band 20 % (5-11); Eosinophils 1 % (0-10); Lymphocytes 4 % (21-51); MDiff Complete? YES; Mean Platelet Volume 7.9 fL (7.4-10.4); Monocytes 1 % (0-10); Neutrophil 73 % (42-75); Platelet Count 65 thou/uL (130-400); Platelet Morphology Comment Appears Decreased; Polychromasia SLIGHT = 2-3 cells (100X) (0-2/hpf); RBC Distribution Width 13.8 % (11.5-14.5); Reactive Lymphocytes 1 % (0-10)
[2019-09-11 08:52] LABS: ALT (SGPT) 65 U/L (8-55); AST (SGOT) 167 U/L (5-34); Albumin 3.8 g/dL (3.4-4.8); Alkaline Phosphatase 344 U/L (40-110); Anion Gap 32 mmol/L (10-20); BUN (Urea Nitrogen) 17 mg/dL (9.8-20.1); Bilirubin, Total 1.4 mg/dL (0.2-1.2); CK (CPK) 177 U/L (29-168); Calc. Creatinine Clearance 0 mL/min (70-130); Calcium 9.1 mg/dL (7.8-10.44); Carbon Dioxide 10 mmol/L (23-31); Chloride 99 mmol/L (98-107); Estimated GFR-MDRD 71; Globulin 2.5 g/dL (2.4-3.5); Glucose 60 mg/dL (80-115); Lipase 37 U/L (8-78); Potassium 4.6 mmol/L (3.5-5.1); Protein, Total 6.3 g/dL (6.0-8.3); Sodium 136 mmol/L (136-145)
[2019-09-11] MEDS ORDERED: Dextrose 50% Abboject 50 ML SYRINGE ONE (09:04)
[2019-09-11 09:13] LABS: CKMB 6.4 ng/mL (0-6.6)
[2019-09-11 09:26] LABS: Bacteria/HPF 2+ HPF (None Seen); Bilirubin Negative (Negative); Blood, Urine Negative (Negative); Clarity Clear (Clear); Glucose, Urine (Dipstick) Normal (Negative); Leukocyte Negative Leu/uL (Negative); Nitrite 1+ (Negative); Protein, Urine (Dipstick) 20 mg/dL (Neg-Trace); RBC/HPF 0-3 HPF (0-3); Squamous Epithelial 0-3 HPF (0-3); Urobilinogen 3 mg/dL (Less than 2); WBC/HPF 0-3 HPF (0-3)
[2019-09-11] MEDS ORDERED: Iopamidol-370 76% 500 ML 1 ML ONE (09:28)
[2019-09-11] MEDS ORDERED: Fentanyl 100 MCG/2 ML VIAL ONE ×2 (09:33→11:34)
[2019-09-11] MEDS ORDERED: Vancomycin HCl 1.25 GM in Sodium Chloride 0.9% 250 ML 250 ML IVPB SCH (10:00)
--- NOTE | 2019-09-11 10:05 | CT ---
CT Abdomen Pelvis W Con: 09/11/2019 8:00 AM CLINICAL INFORMATION: Fall with left hip pain and abdominal pain COMPARISON: 09/29/2018 TECHNIQUE: Multiple contiguous axial images were obtained and a CT of the abdomen and pelvis with IV contrast. C oronal and sagittal reformats were performed. FINDINGS: Lower Chest: New nodules in the both lung bases measuring up to 7 mm in size. Moderate hiatal hernia. Abdomen: Liver: There is diffuse fatty infiltration of the liver. Numerous masses are seen in the liver which are new measuring up to 11.0 cm in size. A well-circumscribed 2.0 cm exophytic lesion demonstrating benign calcic lesions is seen along the left lobe of the liver. Bile Ducts: Normal caliber. Gallbladder: Calcified gallstones Pancreas: within normal limits. Spleen: within normal limits. Adrenals: within normal limits. Kidneys: There is subcentimeter nodules in the bilateral perinephric fat that are new compared to the prior exam. Pelvis: Reproductive Organs: No pelvic masses. Ureters: within normal limits. Bladder: within normal limits. Peritoneum: No ascites or free air, no fluid collection. Bowel: Normal caliber. Scattered diverticula in the colon Mesentery and Retroperitoneum: No enlarged mesenteric or retroperitoneal lymph nodes. Vessels: Atherosclerotic calcifications. Abdominal Wall: Multiple new subcutaneous nodules measuring up to 1.4 cm in size. Bones: Degenerative changes in the spine. IMPRESSION: 1. Diffuse hepatic metastatic disease 2. Scattered pulmonary nodules also likely represent metastatic disease 3. Fatty liver 4. Diverticulosis 5. Bilateral perinephric fat nodularity is new and may represent metastatic disease. 6. Subcutaneous nodules may represent metastatic disease. 7. Cholelithiasis
[2019-09-11] MEDS ORDERED: Aspirin Chewable 81 MG TAB ONE (10:08)
[2019-09-11] MEDS ORDERED: cefTRIAXone\\ROCEPHIN 2 GM VIAL ONE (10:08)
--- NOTE | 2019-09-11 10:25 | CT ---
EXAM: CT left hip without contrast HISTORY: Left hip pain after fall COMPARISON: None TECHNIQUE: Multiple contiguous axial images were obtained and a CT of the left hip without contrast. Sagittal and coronal reformats were performed. FINDINGS: No pelvic fractures are seen. No fracture of the left proximal femur is seen. Mild left hi p degenerative changes are seen. Scattered diverticula are seen in the colon.. Edema is seen along the lateral aspect of the left hip in the greater trochanteric region. IMPRESSION: No evidence of hip or pelvic fracture.
[2019-09-11 12:22] LABS: Lactic Acid 1.4 mmol/L (0.5-2.2)
[2019-09-11 14:13] LABS: Troponin I 0.142 ng/mL (< 0.028)
[2019-09-11] MEDS ORDERED: Guaifenesin DM 100-10/5 ML UDCUP PO PRN (17:01)
[2019-09-11] MEDS ORDERED: Ondansetron ODT 4 MG TAB PO PRN (17:01)
[2019-09-11] MEDS ORDERED: Acetaminophen 650 MG Suppository PR PRN (17:01)
[2019-09-11] MEDS ORDERED: Ondansetron PF 4 MG/2 ML Vial IVP PRN (17:01)
[2019-09-11] MEDS ORDERED: Acetaminophen 325 MG TAB PO PRN (17:01)
[2019-09-11 17:10] VITALS: BMI 30.1
[2019-09-11] MEDS: Sodium Chloride 0.9% 1,000 ML IV SCH (17:51)
[2019-09-11] MEDS: HYDROcodone/Acetaminophen 5/325 mg Tablet PO PRN ×2 (17:51→22:28)
[2019-09-11 18:27] LABS: Troponin I 0.099 ng/mL (< 0.028)
[2019-09-11] MEDS ORDERED: ALPRAZolam 0.25 MG TAB PO PRN (18:39)
[2019-09-11] MEDS: Famotidine 20 MG TAB PO SCH (19:38)
[2019-09-11] MEDS ORDERED: traMADol HCl 50 MG TAB PO PRN (20:45)
--- NOTE | 2019-09-11 22:17 | HP ---
CHIEF COMPLAINT: Fall and weakness. HISTORY OF PRESENT ILLNESS: This is a 64-year-old white female, who reports that she has had increasing weakness over the last 1 to 2 weeks. She reports that she had a fever up to 102 about 2 weeks ago, but seemed to get better from that and then a week ago started getting progressively weaker. She also started having aches all of her body, especially in her low back, in her shoulders and neck, and in her abdomen. Patient's was traveling out of town and last night, she tripped against some furniture and fell into the floor, hitting her left hip. She has some pain in her left hip and she was too weak to get off the floor, so she dragged down some comforters and a pillow and went to sleep on the floor. In the morning, she was still unable to get up off the floor and so she crawled until she got to a phone and had her family called EMS. In the emergency room, the patient had imaging of her left hip, pelvis, and extremity with a CT and x-rays. These showed no evidence of fracture. Patient was noted to be tachycardic and with blood pressure on the lower end in the emergency room, she had blood work done showing a severely elevated lactate of 4, bandemia, and significant tachycardia in the 120s. She was diagnosed with sepsis, given fluids and IV antibiotics. She did have mild clean dirty urine, though she denied any specific dysuria, just the abdominal pain and some seeming to take a little bit longer for her to be able to urinate each time. Patient had blood and urine cultures drawn before antibiotics. Her only other symptom right now that she has been having some shortness of breath along with her weakness and her oxygen levels were normal on room air in the emergency room. REVIEW OF SYSTEMS: CONSTITUTIONAL: Positive for fever and chills as per HPI. EYES: No double vision or blurred vision. ENT: She did report some drainage and congestion along with a little bit of sore throat. CARDIOVASCULAR: No chest pain. No palpitations or racing heart. PULMONARY: She denied coughing to the ER physician, but did report some intermittent dry coughing to me and started having some shortness of breath as well. No chest pain. No wheezing. GASTROINTESTINAL: Abdominal pain per HPI. She has had some nausea and reports vomiting at least once. She has had loose bowel movements about 3 times a day, but not specifically diarrheal and no blood or mucus in them. No constipation. MUSCULOSKELETAL: She has generalized body aches and the pain in her left hip since the fall. SKIN: She does note some mottling of the skin on her legs. No other rashes or lesions noted. NEUROLOGIC: No focal numbness, tingling, or weakness. She has generalized weakness. PAST MEDICAL HISTORY: 1. Hypertension. 2. Gout. 3. Some sort of previous mass to her left breast, treated with some sort of medication. She was uncertain if this was cancer or if she took chemotherapy. There is an oral chemotherapy note mentioned in her ER history. PAST SURGICAL HISTORY: 1. Left ankle surgery. 2. Left shoulder surgery. 3. Hysteroscopy in 2011. SOCIAL HISTORY: Patient has a strong history of alcoholism. Denies recent alcohol use. No tobacco use. She lives with her and is a full code. Her would be her medical decision maker. His name is Nash Mac. FAMILY HISTORY: Negative for heart disease, cancer, or stroke. ALLERGIES: NO KNOWN DRUG ALLERGIES. CURRENT MEDICATIONS: 1. Metoprolol tartrate mg twice a day. 2. Potassium chloride 20 mEq daily. 3. Vitamin B12 of 1000 mcg daily. 4. Folic acid 1 mg daily. 5. Magnesium chloride 128 mg twice a day. 6. Multivitamin daily. 7. Thiamine 100 mg daily. 8. Tramadol as needed for pain. PHYSICAL EXAMINATION: VITAL SIGNS: Blood pressure 103/58, pulse 117, respirations 20, O2 saturation 95% on room air, and temperature 98.0. GENERAL: This is a well-developed, well-nourished female, who appears a little bit anxious and has mildly increased respiratory rate to my exam. HEENT: Pupils are equal, round, and reactive to light. Oropharynx is clear without lesions, erythema, or exudate. NECK: Supple. No lymphadenopathy. No thyroid nodules or enlargement. HEART: Regular rhythm. Mildly tachycardic. LUNGS: Clear to auscultation bilaterally. No wheezes, crackles, or rhonchi. ABDOMEN: Soft. She has some mild tenderness to palpation diffusely without any guarding or rebound tenderness. No hepatosplenomegaly or other masses. Normoactive bowel sounds. EXTREMITIES: Patient has some tenderness to the left hip, but no deformity. No clubbing, cyanosis, or edema. SKIN: She does have a little bit of mottling of her lower extremities, though not severe. No other rashes noted. NEUROLOGIC: Patient has intact strength and that is equal in all extremities. No facial droop. PSYCHIATRIC: Alert and oriented x3. Normal affect. She is a little bit anxious. LABORATORY DATA: CBC with white blood cell count 5.6, but 20% bands; hemoglobin 10; hematocrit 30.6; and platelet count 65. Coagulation profile with PT of 17.9 and INR of 1.5. Complete metabolic panel is notable for carbon dioxide of 10; anion gap of 32; and glucose of 60 initially, up to 103 after treatment in the ER. Total bilirubin of 1.4, AST 167, ALT 65, and alkaline phosphatase of 344. Creatine kinase of 177. The rest of her CMP was normal. Her lactic acid was initially 4, after 30 mL/kg fluid bolus, it came down to 1.4. Troponin was initially indeterminate at 0.138, repeat 0.142. Normal CK-MB. Urinalysis showed 40 ketones, 1+ nitrite, negative leuk esterase, negative white blood cells, 2+ bacteria. CT of the abdomen and pelvis done in the emergency room showed diffuse fatty infiltration of liver with numerous masses seen in the liver measuring up to 11 cm in size, also with scattered pulmonary nodules also likely representing metastatic disease. Diverticulosis without any diverticulitis. Bilateral perinephric fat nodularity, possibly representing metastatic disease and subcutaneous nodules may represent metastatic disease and cholelithiasis. EKG done in the emergency room did show sinus tachycardia without any ST-segment or T-wave abnormalities. Chest x-ray done in the emergency room, I did review the films along with the radiologist's report. It does show no acute cardiopulmonary process. ASSESSMENT: 1. Severe sepsis with unknown infectious source, possibly urinary tract infection. The patient has had blood cultures, urine cultures and has received antibiotics and fluids and she is doing much better since initiation of treatment. We will wait for culture results. We will continue Rocephin and vancomycin. If she does not continue to respond well, we can expand the antibiotic course. Given patient's mild respiratory symptoms as well as possibility of COVID, especially without an obvious definitive other source of infection, so we will check a COVID test and we will put the patient on isolation. 2. Possible urinary tract infection. She does have some nitrites and bacteria in her urine. Culture is pending. However, this is not terribly impressive given her severe sepsis picture and lack of any evidence of kidney blockage or infection on her CT. 3. Diffuse metastatic disease, uncertain primary, though it may be related to her previous breast mass. We will consult GI as the patient will likely need a biopsy of the liver mass to determine the etiology. This biopsy can likely be done after her sepsis is resolved. She will need to follow up with Oncology after discharge. 4. Hypertension. We will hold on the patient's antihypertensives for now given her low blood pressure and sepsis though we can resume these if her blood pressure starts coming up. 5. Alcoholism. We will put patient on ASE protocol in case she has been drinking alcohol recently and is at risk for withdrawals. We will also give her some p.r.n. Xanax for anxiety. She seems quite anxious about her new diagnosis. 6. Gastrointestinal prophylaxis. We will put the patient on Pepcid twice a day. 7. Deep venous thrombosis prophylaxis. We will hold on any Lovenox or heparin given patient's thrombocytopenia. We will put SCDs on her while she is in bed. 8. Code status. Patient is a full code. Should she be incapacitated, her would be her medical decision maker. His name is Nash Mac. Job ID: [id number]
[2019-09-11] MEDS: Vancomycin 1 GM in Premix Bag 1 BAG IVPB SCH (22:28)
[2019-09-11] MEDS: Magnesium Chloride 64 MG TAB PO SCH (22:28)
[2019-09-12 03:48] LABS: #Lymphocytes 0.5 thou/uL (1.20-3.40); #Monocytes 0.3 thou/uL (0.11-0.59); #Neutrophils 2.5 thou/uL (1.40-6.50); %Basophils 0.3 % (0.0-1.0); %Eosinophils 1.4 % (0.0-10.0); %Lymphocytes 13.8 % (21.0-51.0); %Monocytes 9.9 % (0.0-10.0); %Neutrophils 74.7 % (42.0-75.0); Hemoglobin 7.9 g/dL (12.0-16.0); Mean Corpuscular HGB CONC 33.4 g/dL (32.0-36.0); Mean Corpuscular Hemoglobin 37.7 pg (27.0-31.0); Mean Platelet Volume 8.3 fL (7.4-10.4); Platelet Count 49 thou/uL (130-400); RBC Distribution Width 13.8 % (11.5-14.5); Red Blood Cell (RBC) Count 2.08 mill/uL (4.20-5.40); White Blood Cell (WBC) Count 3.4 thou/uL (4.8-10.8)
[2019-09-12 04:00] LABS: Anion Gap 23 mmol/L (10-20); BUN (Urea Nitrogen) 15 mg/dL (9.8-20.1); Calc. Creatinine Clearance 72 mL/min (70-130); Carbon Dioxide 14 mmol/L (23-31); Chloride 104 mmol/L (98-107); Estimated GFR-MDRD 60; Glucose 80 mg/dL (80-115); Potassium 3.9 mmol/L (3.5-5.1); Sodium 137 mmol/L (136-145)
[2019-09-12] MEDS: Sodium Chloride 0.9% 1,000 ML IV SCH ×2 (05:37→12:09)
[2019-09-12] MEDS: HYDROcodone/Acetaminophen 5/325 mg Tablet PO PRN ×3 (05:45→21:09)
[2019-09-12] MEDS: Multivit, Therapeutic 1 TAB PO SCH (08:59)
[2019-09-12] MEDS: Magnesium Chloride 64 MG TAB PO SCH ×2 (09:00→21:05)
[2019-09-12] MEDS: Thiamine 100 MG TAB PO SCH (09:00)
[2019-09-12] MEDS ORDERED: Enoxaparin Sodium 40 MG/0.4 ML SYRINGE SC SCH (09:00)
[2019-09-12] MEDS: Folic Acid 1 MG TAB PO SCH (09:00)
[2019-09-12] MEDS: Cyanocobalamin (Vitamin B-12) 1,000 MCG TAB PO SCH (09:00)
[2019-09-12] MEDS: cefTRIAXone\\ROCEPHIN 2 GM in Sodium Chloride 0.9% 100 ML IVPB SCH (09:01)
[2019-09-12] MEDS: Famotidine 20 MG TAB PO SCH (09:05)
[2019-09-12] MEDS: Vancomycin 1 GM in Premix Bag 1 BAG IVPB SCH ×2 (12:08→23:23)
--- NOTE | 2019-09-12 12:43 | CON ---
DATE OF CONSULTATION: 09/12/2019 REASON FOR CONSULTATION: IMCU patient. Following encompassed a 75 minutes critical care time, of the time, greater than 50% spent with the patient and/or the patient's unit in hospital. HISTORY OF PRESENT ILLNESS: This is a 64-year-old female who has a very convoluted history. She was febrile about 2 weeks ago. She has not left her house. She says she has not been exposed to the virus, although she is worried that she could have it. She had a fall at home, spent the night on the floor. Eventually, crawled to the phone. The next morning called EMS. Workup was negative for a fracture. She was found to have significant bandemia and tachycardia. She was admitted for urinary tract infection. She is currently being ruled out for COVID. So she is in respiratory isolation. She is not hypoxic and does not have a cough, but says she is short of breath. PAST MEDICAL HISTORY: 1. Hypertension. 2. Gout. 3. Some type of benign breast lesion. PAST SURGICAL HISTORY: 1. Left ankle surgery. 2. Left shoulder surgery. 3. Hysteroscopy. SOCIAL HISTORY: Alcohol in the past, not currently using. Does not smoke. Does not use illicit drugs. ALLERGIES: NONE. MEDICATIONS: Prior to admission 1. Metoprolol. 2. Potassium. 3. Vitamin B12. 4. Folate. 5. Magnesium. 6. Multivitamin. 7. Thiamine. 8. Tramadol. REVIEW OF SYSTEMS: Otherwise negative, 12 point. PHYSICAL EXAMINATION: VITAL SIGNS: Temperature 98.1, pulse 100, blood pressure 100/52, O2 saturation 97% room air. GENERAL: Awake, alert, no distress. HEENT: Unremarkable. NECK: No adenopathy or JVD. LUNGS: Clear without wheezing or rhonchi. CARDIAC: S1, S2. Regular. ABDOMEN: Soft. Liver and spleen palpable at 4 cm below the right costal margin. EXTREMITIES: No clubbing, cyanosis, or edema. LABORATORY DATA: White blood cell count 3.4, hematocrit 23.5, and platelet count 49. She had 73% neutrophils, 1% bands last night. Urinalysis demonstrated 0 to 3 white blood cells, some casts. INR is 1.5, PTT 38.1. Sodium 137, potassium 3.9, chloride 104, CO2 of 14, BUN 15, creatinine 0.9, glucose 60. Her lactate was initially 4 and now it is 1.4. Troponin 0.99. Chest x-ray showed no obvious mass, effusion, or infiltrate. Abdominal/pelvis CT showed an 11 cm liver mass with several other scattered liver masses and she has some pulmonary nodules. ASSESSMENT: The patient is presenting with multiple medical problems including liver mass and E coli urinary tract infection, coagulopathy, thrombocytopenia, leukopenia, anemia, etc. PLAN: Once she is ruled out for COVID, she needs a liver biopsy. She is currently being treated with antibiotics. She needs supportive care otherwise. We will be happy to follow with you while she is in the [facility]. Job ID: [id number]
[2019-09-12 12:49] LABS: SARS-CoV-2 MS2 Positive; SARS-CoV-2 N Gene Negative; SARS-CoV-2 S Gene Negative; SARS-CoV-2 orf1ab Negative
--- NOTE | 2019-09-12 13:19 | PDOC.HOSPP ---
- Subjective Encounter Date: 09/12/19 Encounter Time: 12:00 Subjective: Patient seen and examined. No new complaints. No overnight events - Objective Vital Signs & Weight: Vital Signs (12 hours) Temp Pulse Ox 09/12/19 12:00 98.4 F 100 09/12/19 08:00 98.3 F 98 09/12/19 04:00 98.1 F Weight Weight 170 lb Most Recent Monitor Data Heart Rate from ECG 96 NIBP 100/58 NIBP BP-Mean 72 Respiration from ECG 17 SpO2 99 I&O: 09/11/19 09/12/19 09/13/19 06:59 06:59 06:59 Intake Total 2350 240 Output Total 200 Balance 2150 240 Result Diagrams: 09/12/19 03:13 09/12/19 03:13 Radiology Reviewed by me: Yes EKG Reviewed by me: Yes Hospitalist ROS - Review of Systems Eyes: denies: pain, vision change, conjunctivae inflammation, eyelid inflammation, redness, other ENT: denies: ear pain, ear discharge, nose pain, nose discharge, nose congestion , mouth pain, mouth swelling, throat pain, throat swelling, other Respiratory: denies: cough, dry, shortness of breath, hemoptysis, SOB with excertion, pleuritic pain, sputum, wheezing, other Gastrointestinal: denies: nausea, vomiting, abdominal pain, diarrhea, constipation, melena, hematochezia, other Genitourinary: denies: dysuria, frequency, incontinence, hematuria, retention, other Musculoskeletal: denies: neck pain, shoulder pain, arm pain, back pain, hand pain, leg pain, foot pain, other - Medication Medications: Active Medications Generic Name Dose Route Start Last Admin Trade Name Freq PRN Reason Stop Dose Admin Hydrocodone Bitart/Acetaminophen 1 tab 09/11/19 17:01 09/12/19 05:45 [place] 5/325 PO 1 tab Q4H PRN Administration Moderate Pain (4-6) Hydrocodone Bitart/Acetaminophen 2 tab 09/11/19 17:01 09/12/19 09:34 [place] 5/325 PO 2 tab Q4H PRN Administration Severe Pain (7-10) Alprazolam 0.25 mg 09/11/19 18:39 09/11/19 19:38 Xanax PO 0.25 mg BIDPRN PRN Administration Anxiety Cyanocobalamin 1,000 mcg 09/12/19 09:00 09/12/19 09:00 Vitamin B-12 PO 1,000 mcg DAILY JOHNNA Administration Folic Acid 1 mg 09/12/19 09:00 09/12/19 09:00 Folvite PO 1 mg DAILY JOHNNA Administration Ceftriaxone Sodium 2 gm/ 100 mls @ 200 mls/hr 09/12/19 10:00 09/12/19 09:01 Sodium Chloride IVPB 100 mls 1000 JOHNNA Administration Sodium Chloride 1,000 mls @ 100 mls/hr 09/11/19 17:01 09/12/19 12:09 Normal Saline 0.9% IV 1,000 mls .Q10H JOHNNA Administration Vancomycin HCl 1 gm/ Device 200 mls @ 200 mls/hr 09/11/19 23:00 09/12/19 12: 08 IVPB 200 mls 1100,2300 JOHNNA Administration Magnesium Chloride 128 mg 09/11/19 21:00 09/12/19 09:00 Slow-Mag PO 128 mg BID JOHNNA Administration Multivitamins 1 tab 09/12/19 09:00 09/12/19 08:59 Theragran PO 1 tab DAILY JOHNNA Administration Ondansetron HCl 4 mg 09/11/19 17:01 09/11/19 20:08 Zofran IVP 4 mg Q6H PRN Administration Nausea/Vomiting Thiamine HCl 100 mg 09/12/19 09:00 09/12/19 09:00 Thiamine PO 100 mg DAILY JOHNNA Administration - Exam General Appearance: NAD, awake alert Eye: PERRL, anicteric sclera ENT: normocephalic atraumatic, no oropharyngeal lesions Neck: supple, symmetric, no JVD Heart: RRR, no murmur, no gallops, no rubs Respiratory: CTAB, no wheezes, no rales, no ronchi Gastrointestinal: soft, non-tender, non-distended Extremities: no cyanosis, no clubbing Skin: normal turgor, no lesions Neurological: no focal deficits Musculoskeletal: normal tone, normal strength Psychiatric: normal affect, normal behavior Hosp A/P (1) Metastatic disease Code(s): C79.9 - SECONDARY MALIGNANT NEOPLASM OF UNSPECIFIED SITE Status: Acute (2) Pancytopenia Code(s): D61.818 - OTHER PANCYTOPENIA Status: Acute (3) UTI (urinary tract infection) Status: Acute Qualifiers: (4) Lactic acidosis Code(s): E87.2 - ACIDOSIS Status: Acute (5) Hypertension Code(s): I10 - ESSENTIAL (PRIMARY) HYPERTENSION Status: Chronic Qualifiers: Hypertension type: essential hypertension Qualified Code(s): I10 - Essential (primary) hypertension (6) Leukopenia Code(s): D72.819 - DECREASED WHITE BLOOD CELL COUNT, UNSPECIFIED Status: Chronic Qualifiers: Neutropenia type: unspecified (7) Macrocytic anemia Code(s): D53.9 - NUTRITIONAL ANEMIA, UNSPECIFIED Status: Chronic - Plan old records reviewed/req, continue antibiotics, PT/OT covid-19 ruled out continue rocephin and vancomycin for now follow on culture result may need oncology evaluation for metastatic disease ? primary GI consulted pulmonary consulted medication reviewed symptomatic treatment
[2019-09-12] MEDS ORDERED: Sodium Chloride 0.65% Nasal 44 ML BOT EA NARE PRN (14:16)
[2019-09-12] MEDS ORDERED: Senokot S 8.6-50 MG TAB PO PRN (14:16)
[2019-09-12] MEDS ORDERED: Loratadine 10 MG TAB PO PRN (14:16)
[2019-09-12] MEDS ORDERED: Artificial Tears 18 DROP/0.9 ML EA EYE PRN (14:16)
[2019-09-12] MEDS ORDERED: Loperamide HCl 2 MG CAP PO PRN (14:16)
[2019-09-12] MEDS ORDERED: hydrALAZINE 20 MG/ML VIAL SLOW IVP PRN (14:16)
[2019-09-12] MEDS ORDERED: Cepastat Lozenges 1 LOZ PO PRN (14:16)
[2019-09-12] MEDS ORDERED: Diabetic Tussin 200 MG/10 ML UDCUP PO PRN (14:16)
[2019-09-12] MEDS ORDERED: Sodium Chloride 0.9% 500 ML IVPB SCH (17:00)
[2019-09-12] MEDS: Zolpidem Tartrate 5 MG TAB PO PRN (23:23)
[2019-09-13 05:09] LABS: #Eosinphils 0.1 thou/uL (0.0-0.7); #Lymphocytes 0.6 thou/uL (1.20-3.40); #Monocytes 0.4 thou/uL (0.11-0.59); #Neutrophils 2.5 thou/uL (1.40-6.50); %Eosinophils 2.9 % (0.0-10.0); %Lymphocytes 16.4 % (21.0-51.0); %Monocytes 11.4 % (0.0-10.0); %Neutrophils 69.3 % (42.0-75.0); Hemoglobin 7.7 g/dL (12.0-16.0); Mean Corpuscular HGB CONC 31.8 g/dL (32.0-36.0); Mean Corpuscular Hemoglobin 36.1 pg (27.0-31.0); Mean Platelet Volume 8.1 fL (7.4-10.4); Platelet Count 52 thou/uL (130-400); RBC Distribution Width 14.1 % (11.5-14.5); Red Blood Cell (RBC) Count 2.15 mill/uL (4.20-5.40); White Blood Cell (WBC) Count 3.6 thou/uL (4.8-10.8)
[2019-09-13 05:19] LABS: ALT (SGPT) 44 U/L (8-55); AST (SGOT) 109 U/L (5-34); Alkaline Phosphatase 259 U/L (40-110); Anion Gap 15 mmol/L (10-20); BUN (Urea Nitrogen) 16 mg/dL (9.8-20.1); Bilirubin, Total 0.8 mg/dL (0.2-1.2); Calc. Creatinine Clearance 71 mL/min (70-130); Calcium 8.1 mg/dL (7.8-10.44); Carbon Dioxide 18 mmol/L (23-31); Chloride 106 mmol/L (98-107); Estimated GFR-MDRD 59; Glucose 98 mg/dL (80-115); Potassium 3.9 mmol/L (3.5-5.1); Sodium 135 mmol/L (136-145)
[2019-09-13] MEDS: Sodium Chloride 0.9% 1,000 ML IV SCH ×3 (05:27→17:58)
--- NOTE | 2019-09-13 06:25 | CON ---
DATE OF CONSULTATION: 09/12/2019 REASON FOR CONSULTATION: Abnormal CAT scan showing a liver lesion and also what appears to be subcutaneous nodules on CAT scan. HISTORY OF PRESENT ILLNESS: Mercy Mac is a very pleasant 64-year-old female, known to me from before. She was hospitalized here in 2019 with anemia. She underwent colonoscopy, polypectomy and also EGD. The workup was basically negative for anemia. She was seen by Hematology and underwent a bone marrow biopsy which again came back normal. The patient apparently brought to the ER by the Emergency Medical Services because the patient fell down and felt very weak and was unable to move. The patient is awake, alert, and communicative. The patient tells me she had some abdominal pain over the last couple of weeks. She also . She lost about 15 pounds over the last 2 weeks. She had nausea with no vomiting. No hematochezia. No melena. The patient was brought to the ER by EMS because of the generalized weakness, fatigue, and not able to move. She had abdominal CAT scan done on admission. The CAT scan shows multiple subcutaneous nodules and also a large liver mass measuring approximately 11 cm. She had also multiple small lesions. The findings suggestive of metastatic carcinoma. She was also found to have evidence of sepsis and is on broad-spectrum antibiotic therapy. No other relevant history. ALLERGIES: NONE. SOCIAL HISTORY: The patient is . She does not smoke or drink alcohol. MEDICAL ILLNESSES: 1. Hypertension. 2. Gout. 3. History of breast lesion supposedly infective and was treated with antibiotics. She tells me it was noncancerous. This was diagnosed by somebody at [facility] in [place]. 4. Colon polyp. 5. Anemia with negative workup in 2019. PAST SURGICAL HISTORY: 1. Left ankle surgery. 2. Left shoulder surgery. 3. Hysteroscopy. MEDICATIONS: Metoprolol, potassium, vitamin B12, folate, magnesium, multivitamins, thiamine, tramadol. REVIEW OF SYSTEMS: CONSTITUTIONAL: History of fever to 102 degrees Fahrenheit. History of generalized weakness, fatigue. No allergy. History of weight loss. HEENT: No chronic headache. No TIA. No syncope. Eyes, no diplopia. No impaired vision. Ears: No hearing loss. Nose: No nosebleed. Throat: No sore throat. LUNGS: No chronic coughing, hemoptysis. CARDIOVASCULAR: No chest pain. No palpitation. No dyspnea, orthopnea, PND. GI: History of abdominal pain, poor appetite, nausea. History of weight loss. : No dysuria, hematuria. MUSCULOSKELETAL: Not known. NEUROLOGIC: Not known. ENDOCRINE: Not known. PHYSICAL EXAMINATION: GENERAL: She is awake, alert, communicative. She is in no distress. VITAL SIGNS: Afebrile. Pulse is 101, blood pressure is 110/67. HEENT: Conjunctivae clear. NECK: Supple. CARDIOVASCULAR: First and second heart sound normal. LUNGS: Clear to auscultation. ABDOMEN: Soft. There is some fullness across the abdomen. enlarged liver. There is no rebound or guarding. She is mildly tender over the epigastric area, right upper quadrant. Bowel sounds normal. EXTREMITIES: Reveal no edema. LABORATORY DATA: On admission, WBC 5600, hemoglobin 10, hematocrit 30.6, MCV 114, platelet count is 65,000. Repeat H and H today. Platelet count dropping to 49,000, hemoglobin 7.9, hematocrit 23.1, MCV 113. Lytes are normal today, CO2 is 14, creatinine is 0.94, glucose is 80, calcium 8. Troponin 0.099. Abdominal CAT scan shows multiple liver lesions and also what appears to be subcutaneous nodules abdominal wall. CLINICAL IMPRESSION: 1. A 64-year-old female hospitalized with generalized weakness, fatigue, tiredness, and apparently she could not get up after she fell down at home. CAT scan showed findings of what appears to be metastatic cancer. She has had a negative colonoscopy and EGD in 2019, also negative bone marrow exam. 2. Sepsis, source unclear. She was acidotic on admission. Today the lactic acid has come down to 1.4. 3. Anemia. 4. Thrombocytopenia, etiology unclear. RECOMMENDATION: 1. Follow up H and H. 2. Transfuse. 3. We will plan for a CT-guided biopsy of liver lesions hopefully Tuesday once her clinical condition is stable. Job ID: [id number]
--- NOTE | 2019-09-13 09:21 | PQF ---
DATE: 09-13-19 ATTN: DR. NICCI HSU Please exercise your independent, professional judgment in responding to the clarification form. Clinical indicators are provided on the bottom of this form for your review Please check appropriate box(s) to clarify if the following diagnosis has been ruled in or ruled out: NSTEMI [ ] Ruled in diagnosis [ ] Continue to treat [ ] Resolved [ ] Ruled out diagnosis [ x] Other diagnosis __Type 2 NSTEMI due to demand ischemia [ ] Unable to determine In addition, please specify: Present on Admission (POA): [ x ] Yes [ ] No [ ] Unable to determine For continuity of documentation, please document condition throughout progress notes and discharge summary. Thank You. CLINICAL INDICATORS - SIGNS / SYMPTOMS / LABS / RESULTS AND LOCATION IN MR: ER DX: SEVERE SEPSIS WITH SEPTIC SHOCK, NSTEMI, UTI TROPONINS: 09-11-19: 0.138 09-11-19: 0.142 09-11-19: 0.099 RISK FACTORS / RESULTS AND LOCATION IN MR: H&P: 06-11-19: HX HTN, GOUT, HAVING SOB ALONG WITH HER WEAKNESS TREATMENTS / RESULTS AND LOCATION IN MR: SERIAL TROPONINS 09-11-19 AND MONITORING ER NOTES 09-10-19: ASA PO (This form is maintained as a part of the permanent medical record) 2014 [employer]. All Rights Reserved [email or web address] [email or web address]
--- NOTE | 2019-09-13 09:31 | PDOC.HOSPP ---
- Subjective Encounter Date: 09/13/19 Encounter Time: 07:00 Subjective: Patient seen and examined. No new complaints. No overnight events - Objective Vital Signs & Weight: Vital Signs (12 hours) Temp Pulse Resp BP Pulse Ox 09/13/19 08:00 98.6 F 107 H 18 137/76 95 09/13/19 03:39 98.6 F 116 H 18 134/77 93 L 09/13/19 00:00 98.2 F 106 H 16 111/57 L 93 L Weight Weight 170 lb Most Recent Monitor Data Heart Rate from ECG 118 NIBP 102/70 NIBP BP-Mean 80 Respiration from ECG 12 SpO2 96 I&O: 09/12/19 09/13/19 09/14/19 06:59 06:59 06:59 Intake Total 2350 3676 Output Total 200 240 Balance 2150 3436 Result Diagrams: 09/13/19 04:26 09/13/19 04:26 Additional Labs: Accuchecks 09/12/19 17:46 POC Glucose 83 Radiology Reviewed by me: Yes Hospitalist ROS - Review of Systems ENT: denies: ear pain, ear discharge, nose pain, nose discharge, nose congestion , mouth pain, mouth swelling, throat pain, throat swelling, other Respiratory: denies: cough, dry, shortness of breath, hemoptysis, SOB with excertion, pleuritic pain, sputum, wheezing, other Cardiovascular: denies: chest pain, palpitations, orthopnea, paroxysmal noc. dyspnea, edema, light headedness, other Gastrointestinal: denies: nausea, vomiting, abdominal pain, diarrhea, constipation, melena, hematochezia, other Genitourinary: denies: dysuria, frequency, incontinence, hematuria, retention, other Musculoskeletal: denies: neck pain, shoulder pain, arm pain, back pain, hand pain, leg pain, foot pain, other - Medication Medications: Active Medications Generic Name Dose Route Start Last Admin Trade Name Freq PRN Reason Stop Dose Admin Hydrocodone Bitart/Acetaminophen 1 tab 09/11/19 17:01 09/12/19 05:45 Ulman 5/325 PO 1 tab Q4H PRN Administration Moderate Pain (4-6) Hydrocodone Bitart/Acetaminophen 2 tab 09/11/19 17:01 09/12/19 21:09 Ulman 5/325 PO 2 tab Q4H PRN Administration Severe Pain (7-10) Alprazolam 0.25 mg 09/11/19 18:39 09/11/19 19:38 Xanax PO 0.25 mg BIDPRN PRN Administration Anxiety Cyanocobalamin 1,000 mcg 09/12/19 09:00 09/12/19 09:00 Vitamin B-12 PO 1,000 mcg DAILY JOHNNA Administration Folic Acid 1 mg 09/12/19 09:00 09/12/19 09:00 Folvite PO 1 mg DAILY JOHNNA Administration Ceftriaxone Sodium 2 gm/ 100 mls @ 200 mls/hr 09/12/19 10:00 09/12/19 09:01 Sodium Chloride IVPB 100 mls 1000 JOHNNA Administration Sodium Chloride 1,000 mls @ 100 mls/hr 09/11/19 17:01 09/13/19 05:27 Normal Saline 0.9% IV 1,000 mls .Q10H JOHNNA Administration Magnesium Chloride 128 mg 09/11/19 21:00 09/12/19 21:05 Slow-Mag PO 128 mg BID JOHNNA Administration Multivitamins 1 tab 09/12/19 09:00 09/12/19 08:59 Theragran PO 1 tab DAILY JOHNNA Administration Ondansetron HCl 4 mg 09/11/19 17:01 09/11/19 20:08 Zofran IVP 4 mg Q6H PRN Administration Nausea/Vomiting Thiamine HCl 100 mg 09/12/19 09:00 09/12/19 09:00 Thiamine PO 100 mg DAILY JOHNNA Administration Zolpidem Tartrate 5 mg 09/12/19 14:16 09/12/19 23:23 Ambien PO 5 mg HSPRN PRN Administration Insomnia - Exam General Appearance: NAD, awake alert Eye: PERRL, anicteric sclera ENT: normocephalic atraumatic, no oropharyngeal lesions Neck: supple, symmetric, no JVD, no thyromegaly Heart: RRR, no murmur, no gallops, no rubs Respiratory: CTAB, no wheezes, no rales, no ronchi Gastrointestinal: soft, non-tender, non-distended, normal bowel sounds Extremities: no cyanosis, no clubbing Skin: normal turgor, no lesions Neurological: no focal deficits Musculoskeletal: normal tone, normal strength Psychiatric: normal affect, normal behavior Hosp A/P (1) Liver mass Code(s): R16.0 - HEPATOMEGALY, NOT ELSEWHERE CLASSIFIED Status: Acute (2) Metastatic disease Code(s): C79.9 - SECONDARY MALIGNANT NEOPLASM OF UNSPECIFIED SITE Status: Acute (3) Pancytopenia Code(s): D61.818 - OTHER PANCYTOPENIA Status: Acute (4) UTI (urinary tract infection) Status: Acute Qualifiers: Urinary tract infection type: acute cystitis Hematuria presence: without hematuria Qualified Code(s): N30.00 - Acute cystitis without hematuria (5) Lactic acidosis Code(s): E87.2 - ACIDOSIS Status: Resolved (6) Hypertension Code(s): I10 - ESSENTIAL (PRIMARY) HYPERTENSION Status: Chronic Qualifiers: Hypertension type: essential hypertension Qualified Code(s): I10 - Essential (primary) hypertension (7) Macrocytic anemia Code(s): D53.9 - NUTRITIONAL ANEMIA, UNSPECIFIED Status: Chronic (8) Pancytopenia Code(s): D61.818 - OTHER PANCYTOPENIA Status: Chronic (9) Leucopenia Code(s): D72.819 - DECREASED WHITE BLOOD CELL COUNT, UNSPECIFIED Status: Chronic (10) Thrombocytopenia Code(s): D69.6 - THROMBOCYTOPENIA, UNSPECIFIED Status: Chronic - Plan old records reviewed/req, continue antibiotics covid-19 ruled out continue rocephin and vancomycin for now follow on culture result may need oncology evaluation for metastatic disease ? primary GI consulted pulmonary consulted medication reviewed symptomatic treatment 09/13/19 pt will need liver biopsy today NM bone scan today CT chest DC vancomycin Continue rocephin ambulate check AFP
--- NOTE | 2019-09-13 10:00 | CT ---
CHEST CT WITH CONTRAST: HISTORY: Metastatic cancer.. COMPARISON: 06/12/2018. CORRELATION: Abdomen CT 09/11/2019. FINDINGS: Lower neck and axilla: No masses or lymphadenopathy. Mediastinum: No mass, lymphadenopathy or hematoma. Heart: Normal heart size. There are coronary artery calcifications. There are calcifications in the m itral annulus. Aorta: Atherosclerosis. No aneurysm, dissection or periaortic fat stranding. Subdiaphragmatic structures: Cholelithiasis. Multiple hepatic masses. Trachea and central bronchi: Patent. Pleural spaces: Small bilateral effusions. Pneumothorax: None. Right lung: Patchy groundglass opacities. Dependent atelectatic changes and scarring. Left lung: Patchy groundglass opacities. Dependent atelectatic changes and scarring. Nodules: Right lun.5 x 0.4 cm solid nodule in the middle lobe. 0.5 and 0.6 cm nodules in the right lung ba se. Left lun.5 x 0.4 cm nodule in the left upper lobe. 0.5 x 0.5 cm nodule in the left upper lobe. 0. 7 x 0.8 cm groundglass nodule in the left lower lobe. Osseous structures: No lytic or blastic lesions. IMPRESSION: Multiple lung parenchymal nodules suggesting metastases. Transcribed Date/Time: 09/13/2019 10:20 AM
[2019-09-13] MEDS: Cyanocobalamin (Vitamin B-12) 1,000 MCG TAB PO SCH (10:16)
[2019-09-13] MEDS: Multivit, Therapeutic 1 TAB PO SCH (10:16)
[2019-09-13] MEDS: Magnesium Chloride 64 MG TAB PO SCH ×2 (10:16→20:50)
[2019-09-13] MEDS: Folic Acid 1 MG TAB PO SCH (10:16)
[2019-09-13] MEDS: cefTRIAXone\\ROCEPHIN 2 GM in Sodium Chloride 0.9% 100 ML IVPB SCH (10:16)
[2019-09-13] MEDS: Thiamine 100 MG TAB PO SCH (10:16)
--- NOTE | 2019-09-13 11:02 | PRG ---
DATE OF SERVICE: 09/13/2019 SUBJECTIVE: The patient is feeling a little better compared to yesterday. She is being sent for a bone scan today. OBJECTIVE: VITAL SIGNS: Temperature 98.6, pulse 107, respiratory rate 18, sat 95%, and blood pressure 137/76. HEENT: Unremarkable. NECK: No adenopathy or JVD. LUNGS: Clear anteriorly. CARDIAC: S1 and S2, regular. ABDOMEN: Soft. EXTREMITIES: No edema. LABORATORY DATA: White blood cell count 3.6, hematocrit 24.3, and platelet count 52. Sodium 135, potassium 3.9, chloride 106, CO2 of 18, BUN 16, creatinine 0.9, and glucose 98. ASSESSMENT: 1. Liver mass. 2. Escherichia coli urinary tract infection. 3. Coagulopathy. 4. Thrombocytopenia. PLAN: Await further staging and biopsy. I reviewed her CT, I do not really see anything on that they would suggest a lung primary. There are some scattered small nodules which would suggest this is metastatic spread from somewhere else. Job ID: [id number]
[2019-09-13] MEDS ORDERED: Iopamidol 370 76% 100 ML VIAL ONE (12:51)
--- NOTE | 2019-09-13 13:54 | NM ---
Exam: Nuclear medicine whole body bone scan HISTORY: Unknown primary metastatic disease. Liver mass, increasing weakness and 15 pound weight loss x2 weeks. Patient fell on left hip a few days ago. COMPARISON: None TECHNIQUE: Patient was administered 31.6 mm of technetium 99 MDP intravenously. Imaging was performed 3 hours after injection FINDINGS: Physiologic distribution of the radiotracer. No scintigraphic evidence of osseous metastases Degenerative changes in bilateral shoulders, knees, feet and ankles Mild rightward curvature of the lumbar spine with dextroscoliosis. Small focus of uptake inferior to the left inferior pubic ramus likely represent urine contamination. IMPRESSION: No scintigraphic evidence of osseous metastases
[2019-09-13] MEDS: HYDROcodone/Acetaminophen 5/325 mg Tablet PO PRN (20:49)
[2019-09-13] MEDS: Zolpidem Tartrate 5 MG TAB PO PRN (20:49)
[2019-09-14] MEDS: Sodium Chloride 0.9% 1,000 ML IV SCH (05:47)
[2019-09-14] MEDS: Cyanocobalamin (Vitamin B-12) 1,000 MCG TAB PO SCH (08:48)
[2019-09-14] MEDS: Multivit, Therapeutic 1 TAB PO SCH (08:49)
[2019-09-14] MEDS: HYDROcodone/Acetaminophen 5/325 mg Tablet PO PRN (08:50)
[2019-09-14] MEDS: Folic Acid 1 MG TAB PO SCH (08:53)
[2019-09-14] MEDS: Thiamine 100 MG TAB PO SCH (08:53)
[2019-09-14] MEDS: cefTRIAXone\\ROCEPHIN 2 GM in Sodium Chloride 0.9% 100 ML IVPB SCH (08:54)
[2019-09-14] MEDS: Magnesium Chloride 64 MG TAB PO SCH ×2 (09:36→20:20)
--- NOTE | 2019-09-14 11:30 | PDOC.HOSPP ---
- Subjective Encounter Date: 09/14/19 Encounter Time: 09:00 Subjective: Patient seen and examined. No new complaints. No overnight events - Objective Vital Signs & Weight: Vital Signs (12 hours) Temp Pulse Resp BP Pulse Ox 09/14/19 08:00 97.7 F 117 H 20 133/64 95 09/14/19 00:00 112 H 90 L Weight Weight 170 lb Most Recent Monitor Data Heart Rate from ECG 118 NIBP 102/70 NIBP BP-Mean 80 Respiration from ECG 12 SpO2 96 I&O: 09/13/19 09/14/19 09/15/19 06:59 06:59 06:59 Intake Total 3676 2690 Output Total 240 520 Balance 3436 2170 Result Diagrams: 09/13/19 04:26 09/13/19 04:26 Hospitalist ROS - Review of Systems ENT: denies: ear pain, ear discharge, nose pain, nose discharge, nose congestion , mouth pain, mouth swelling, throat pain, throat swelling, other Respiratory: denies: cough, dry, shortness of breath, hemoptysis, SOB with excertion, pleuritic pain, sputum, wheezing, other Cardiovascular: denies: chest pain, palpitations, orthopnea, paroxysmal noc. dyspnea, edema, light headedness, other Gastrointestinal: denies: nausea, vomiting, abdominal pain, diarrhea, constipation, melena, hematochezia, other Genitourinary: denies: dysuria, frequency, incontinence, hematuria, retention, other Musculoskeletal: denies: neck pain, shoulder pain, arm pain, back pain, hand pain, leg pain, foot pain, other - Medication Medications: Active Medications Generic Name Dose Route Start Last Admin Trade Name Freq PRN Reason Stop Dose Admin Hydrocodone Bitart/Acetaminophen 1 tab 09/11/19 17:01 09/14/19 08:50 Bates 5/325 PO 1 tab Q4H PRN Administration Moderate Pain (4-6) Hydrocodone Bitart/Acetaminophen 2 tab 09/11/19 17:01 09/12/19 21:09 Bates 5/325 PO 2 tab Q4H PRN Administration Severe Pain (7-10) Alprazolam 0.25 mg 09/11/19 18:39 09/11/19 19:38 Xanax PO 0.25 mg BIDPRN PRN Administration Anxiety Cyanocobalamin 1,000 mcg 09/12/19 09:00 09/14/19 08:48 Vitamin B-12 PO 1,000 mcg DAILY JOHNNA Administration Folic Acid 1 mg 09/12/19 09:00 09/14/19 08:53 Folvite PO 1 mg DAILY JOHNNA Administration Ceftriaxone Sodium 2 gm/ 100 mls @ 200 mls/hr 09/12/19 10:00 09/14/19 08:54 Sodium Chloride IVPB 100 mls 1000 JOHNNA Administration Magnesium Chloride 128 mg 09/11/19 21:00 09/14/19 09:36 Slow-Mag PO 128 mg BID JOHNNA Administration Multivitamins 1 tab 09/12/19 09:00 09/14/19 08:49 Theragran PO 1 tab DAILY JOHNNA Administration Ondansetron HCl 4 mg 09/11/19 17:01 09/11/19 20:08 Zofran IVP 4 mg Q6H PRN Administration Nausea/Vomiting Pantoprazole Sodium 40 mg 09/13/19 09:00 09/14/19 08:47 Protonix PO 40 mg DAILY JOHNNA Administration Thiamine HCl 100 mg 09/12/19 09:00 09/14/19 08:53 Thiamine PO 100 mg DAILY JOHNNA Administration Zolpidem Tartrate 5 mg 09/12/19 14:16 09/13/19 20:49 Ambien PO 5 mg HSPRN PRN Administration Insomnia - Exam General Appearance: NAD, awake alert Eye: PERRL, anicteric sclera ENT: normocephalic atraumatic, no oropharyngeal lesions Neck: supple, symmetric, no JVD, no thyromegaly Heart: RRR, no murmur, no gallops, no rubs Respiratory: CTAB, no wheezes, no rales Gastrointestinal: soft, non-tender, non-distended Extremities: no cyanosis, no clubbing Skin: normal turgor, no lesions Neurological: no focal deficits Musculoskeletal: normal tone, normal strength Psychiatric: normal affect, normal behavior Hosp A/P (1) Liver mass Code(s): R16.0 - HEPATOMEGALY, NOT ELSEWHERE CLASSIFIED Status: Acute (2) Metastatic disease Code(s): C79.9 - SECONDARY MALIGNANT NEOPLASM OF UNSPECIFIED SITE Status: Acute (3) Pancytopenia Code(s): D61.818 - OTHER PANCYTOPENIA Status: Acute (4) UTI (urinary tract infection) Status: Acute Qualifiers: Urinary tract infection type: acute cystitis Hematuria presence: without hematuria Qualified Code(s): N30.00 - Acute cystitis without hematuria (5) Lactic acidosis Code(s): E87.2 - ACIDOSIS Status: Resolved (6) Hypertension Code(s): I10 - ESSENTIAL (PRIMARY) HYPERTENSION Status: Chronic Qualifiers: Hypertension type: essential hypertension Qualified Code(s): I10 - Essential (primary) hypertension (7) Macrocytic anemia Code(s): D53.9 - NUTRITIONAL ANEMIA, UNSPECIFIED Status: Chronic (8) Pancytopenia Code(s): D61.818 - OTHER PANCYTOPENIA Status: Chronic (9) Leucopenia Code(s): D72.819 - DECREASED WHITE BLOOD CELL COUNT, UNSPECIFIED Status: Chronic (10) Thrombocytopenia Code(s): D69.6 - THROMBOCYTOPENIA, UNSPECIFIED Status: Chronic - Plan old records reviewed/req, continue antibiotics covid-19 ruled out continue rocephin and vancomycin for now follow on culture result may need oncology evaluation for metastatic disease ? primary GI consulted pulmonary consulted medication reviewed symptomatic treatment 09/13/19 pt will need liver biopsy today NM bone scan today CT chest DC vancomycin Continue rocephin ambulate check AFP 09/14/19 dc IVF will order liver biopsy, blood culture negative discussed with
--- NOTE | 2019-09-14 12:30 | PRG ---
DATE OF SERVICE: 09/14/2019 SUBJECTIVE: The patient is still awaiting a liver biopsy. She seems to be doing well, otherwise. OBJECTIVE: VITAL SIGNS: Temperature 97.7, pulse 117, respirations 20, O2 saturation 95% on room air, and blood pressure 133/64. HEENT: Unremarkable. NECK: No adenopathy or JVD. CHEST: Clear. CARDIAC: S1 and S2, regular. ABDOMEN: Soft. Liver span increased. EXTREMITIES: No edema. ASSESSMENT: Liver mass. PLAN: She needs a liver biopsy. There is really nothing I can add at this time. Please reconsult if further assistance is needed. Job ID: [id number]
[2019-09-14] MEDS ORDERED: Phytonadione 10 MG/ML AMP SC SCH (18:00)
[2019-09-15] MEDS: HYDROcodone/Acetaminophen 5/325 mg Tablet PO PRN ×3 (04:27→20:26)
[2019-09-15] MEDS ORDERED: Phytonadione 10 MG/ML AMP SC SCH ×2 (09:00)
--- NOTE | 2019-09-15 09:10 | PDOC.HOSPP ---
- Subjective Encounter Date: 09/15/19 Encounter Time: 07:00 Subjective: Patient seen and examined. No new complaints. No overnight events, present bedside. - Objective Vital Signs & Weight: Vital Signs (12 hours) Temp Pulse Resp BP Pulse Ox 09/15/19 08:00 98.1 F 101 H 20 135/66 94 L 09/15/19 02:14 93 L Weight Weight 170 lb Most Recent Monitor Data Heart Rate from ECG 118 NIBP 102/70 NIBP BP-Mean 80 Respiration from ECG 12 SpO2 96 I&O: 09/14/19 09/15/19 09/16/19 06:59 06:59 06:59 Intake Total 2690 980 Output Total 520 350 Balance 2170 630 Result Diagrams: 09/13/19 04:26 09/13/19 04:26 Hospitalist ROS - Review of Systems Constitutional: denies: fever, chills, sweats, weakness, malaise, other Eyes: denies: pain, vision change, conjunctivae inflammation, eyelid inflammation, redness, other ENT: denies: ear pain, ear discharge, nose pain, nose discharge, nose congestion , mouth pain, mouth swelling, throat pain, throat swelling, other Respiratory: denies: cough, dry, shortness of breath, hemoptysis, SOB with excertion, pleuritic pain, sputum, wheezing, other Cardiovascular: denies: chest pain, palpitations, orthopnea, paroxysmal noc. dyspnea, edema, light headedness, other Gastrointestinal: denies: nausea, vomiting, abdominal pain, diarrhea, constipation, melena, hematochezia, other Genitourinary: denies: dysuria, frequency, incontinence, hematuria, retention, other Musculoskeletal: denies: neck pain, shoulder pain, arm pain, back pain, hand pain, leg pain, foot pain, other Skin: denies: rash, lesions, prem, bruising, other - Medication Medications: Active Medications Generic Name Dose Route Start Last Admin Trade Name Freq PRN Reason Stop Dose Admin Hydrocodone Bitart/Acetaminophen 1 tab 09/11/19 17:01 09/15/19 04:27 [place] 5/325 PO 1 tab Q4H PRN Administration Moderate Pain (4-6) Hydrocodone Bitart/Acetaminophen 2 tab 09/11/19 17:01 09/12/19 21:09 [place] 5/325 PO 2 tab Q4H PRN Administration Severe Pain (7-10) Alprazolam 0.25 mg 09/11/19 18:39 09/11/19 19:38 Xanax PO 0.25 mg BIDPRN PRN Administration Anxiety Cyanocobalamin 1,000 mcg 09/12/19 09:00 09/14/19 08:48 Vitamin B-12 PO 1,000 mcg DAILY JOHNNA Administration Folic Acid 1 mg 09/12/19 09:00 09/14/19 08:53 Folvite PO 1 mg DAILY JOHNNA Administration Ceftriaxone Sodium 2 gm/ 100 mls @ 200 mls/hr 09/12/19 10:00 09/14/19 08:54 Sodium Chloride IVPB 100 mls 1000 JOHNNA Administration Magnesium Chloride 128 mg 09/11/19 21:00 09/14/19 20:20 Slow-Mag PO 128 mg BID JOHNNA Administration Multivitamins 1 tab 09/12/19 09:00 09/14/19 08:49 Theragran PO 1 tab DAILY JOHNNA Administration Ondansetron HCl 4 mg 09/11/19 17:01 09/11/19 20:08 Zofran IVP 4 mg Q6H PRN Administration Nausea/Vomiting Pantoprazole Sodium 40 mg 09/13/19 09:00 09/14/19 08:47 Protonix PO 40 mg DAILY JOHNNA Administration Thiamine HCl 100 mg 09/12/19 09:00 09/14/19 08:53 Thiamine PO 100 mg DAILY JOHNNA Administration Zolpidem Tartrate 5 mg 09/12/19 14:16 09/13/19 20:49 Ambien PO 5 mg HSPRN PRN Administration Insomnia - Exam General Appearance: NAD, awake alert Eye: PERRL, anicteric sclera ENT: normocephalic atraumatic, no oropharyngeal lesions Neck: supple, symmetric Heart: RRR, no murmur, no gallops, no rubs, normal peripheral pulses Respiratory: CTAB, no wheezes, no rales, no ronchi, normal chest expansion Gastrointestinal: soft, non-tender, non-distended, normal bowel sounds, no palpable masses Extremities: no cyanosis, no clubbing, no edema Skin: normal turgor, no lesions Neurological: cranial nerve grossly intact, normal sensation to touch Musculoskeletal: normal tone, normal strength Psychiatric: normal affect, normal behavior Hosp A/P (1) Liver mass Code(s): R16.0 - HEPATOMEGALY, NOT ELSEWHERE CLASSIFIED Status: Acute (2) Metastatic disease Code(s): C79.9 - SECONDARY MALIGNANT NEOPLASM OF UNSPECIFIED SITE Status: Acute (3) Pancytopenia Code(s): D61.818 - OTHER PANCYTOPENIA Status: Acute (4) UTI (urinary tract infection) Status: Acute Qualifiers: Urinary tract infection type: acute cystitis Hematuria presence: without hematuria Qualified Code(s): N30.00 - Acute cystitis without hematuria (5) Lactic acidosis Code(s): E87.2 - ACIDOSIS Status: Resolved (6) Hypertension Code(s): I10 - ESSENTIAL (PRIMARY) HYPERTENSION Status: Chronic Qualifiers: Hypertension type: essential hypertension Qualified Code(s): I10 - Essential (primary) hypertension (7) Macrocytic anemia Code(s): D53.9 - NUTRITIONAL ANEMIA, UNSPECIFIED Status: Chronic (8) Pancytopenia Code(s): D61.818 - OTHER PANCYTOPENIA Status: Chronic (9) Leucopenia Code(s): D72.819 - DECREASED WHITE BLOOD CELL COUNT, UNSPECIFIED Status: Chronic (10) Thrombocytopenia Code(s): D69.6 - THROMBOCYTOPENIA, UNSPECIFIED Status: Chronic - Plan old records reviewed/req, plan discussed w/ family, continue antibiotics covid-19 ruled out continue rocephin and vancomycin for now follow on culture result may need oncology evaluation for metastatic disease ? primary GI consulted pulmonary consulted medication reviewed symptomatic treatment 09/13/19 pt will need liver biopsy today NM bone scan today CT chest DC vancomycin Continue rocephin ambulate check AFP 09/14/19 dc IVF will order liver biopsy, blood culture negative discussed with 09/15/19 pt will need liver biopsy on tuesday, if platelet count below 50, may need platelet transfusion before liver biopsy continue rocephin discussed plan with , all test result discussed with pt and medication reviewed and supportive care continue PT may consider discharge plan, ? SNU if pt and interested
[2019-09-15] MEDS: Cyanocobalamin (Vitamin B-12) 1,000 MCG TAB PO SCH (09:14)
[2019-09-15] MEDS: Folic Acid 1 MG TAB PO SCH (09:14)
[2019-09-15] MEDS: Thiamine 100 MG TAB PO SCH (09:14)
[2019-09-15] MEDS: cefTRIAXone\\ROCEPHIN 2 GM in Sodium Chloride 0.9% 100 ML IVPB SCH (09:15)
[2019-09-15] MEDS: Multivit, Therapeutic 1 TAB PO SCH (09:15)
[2019-09-15] MEDS: Magnesium Chloride 64 MG TAB PO SCH ×2 (09:16→20:27)
--- NOTE | 2019-09-15 12:30 | EKG ---
Test Reason : Blood Pressure : / mmHG Vent. Rate : 121 BPM Atrial Rate : 121 BPM P-R Int : 188 ms QRS Dur : 072 ms QT Int : 344 ms P-R-T Axes : 042 015 161 degrees QTc Int : 488 ms Sinus tachycardia Abnormal ECG Confirmed by MELO COLMENARES DO ([id number]), editor map MONICA TREVIZO ([id number]) on 09/15/2019 12:30:19 PM Referred By: Confirmed By:MELO COLMENARES DO
--- NOTE | 2019-09-15 17:19 | CON ---
DATE OF CONSULTATION: 09/14/2019 REASON FOR CONSULTATION: Probable metastatic disease to liver. HISTORY OF PRESENT ILLNESS: The patient is a 64-year-old woman, who has had increasing weakness over the past few weeks. There was a question of fever at home, but she has been afebrile in the hospital. She fell at home with her out of town and was unable to arise and spent the night on the floor with some comforters and a pillow. The next morning, she was able to phone for assistance and was admitted through the emergency room. She has had numerous studies while hospitalized including routine laboratory studies, which reveal a macrocytic anemia and a platelet count in the 50,000 to 60,000 range. Chemistries are significant for an elevated alkaline phosphatase and AST with albumin 3.0. She does have a urinary tract infection with E. coli. Imaging has included. X-rays and a CT of the lower extremity as well as a chest x-ray. A CT scan of the chest revealed several subcentimeter pulmonary nodules worrisome for metastatic disease. Finally, a CT scan of the abdomen and pelvis did reveal multiple hepatic metastases up to 11 cm in maximum dimension. No primary malignancy was identified. These findings were new as compared to a CT scan performed in September 2018. At that time, she also had other studies for anemia including a bone marrow which was nondiagnostic. She does have a history of alcohol excess, details unclear. There is a history of a breast "mass" that she describes many years ago, that was treated with antibiotics. No excision was performed. She does not think this was cancer. A CT-guided biopsy of the liver was planned. However, the platelet count was 49,000 on the day of the procedure, and the procedure was canceled. At this time, I am asked to see the patient to provide further management and recommendations in the setting of probable metastatic disease to liver. ALLERGIES: NONE. MEDICATIONS: 1. Metoprolol. 2. Potassium. 3. B12. 4. Folic acid. 5. Magnesium. 6. Multivitamin. 7. Thiamine. 8. Tramadol p.r.n. pain. MEDICAL ILLNESS: There is a history of hypertension and gout. SURGERIES: She has undergone left ankle surgery and left shoulder surgery. She has had a hysteroscopy in 2011. SOCIAL HISTORY: There is a history of alcohol excess. Again, details unclear. She denies recent alcohol use. She does not use tobacco. She lives with her . FAMILY HISTORY: There is no history of malignancy. REVIEW OF SYSTEMS: Except as mentioned in the history of present illness, she denies significant cardiopulmonary, GI, , musculoskeletal, or neurological complaints. PHYSICAL EXAMINATION: VITAL SIGNS: Temperature 97.7, pulse 117 and regular, respirations 20, blood pressure 133/64, O2 saturation 95% on room air. GENERAL: The patient is a chronically ill-appearing woman, in no acute distress. She is alert, but somewhat slow in response to questioning and has difficulty focusing on answers to most questions. HEENT: The extraocular movements are intact, and the pupils equal, round, and reactive to light. NECK: Supple. LUNGS: Clear. CARDIOVASCULAR: Regular rate and rhythm without murmur, rub, gallop, or click. ABDOMEN: No tenderness, organomegaly, masses, bruits, or ascites. EXTREMITIES: No clubbing, cyanosis, or edema. SKIN: Normal. LYMPH: No adenopathy. MUSCULOSKELETAL: No active arthritis. NEUROLOGIC: No focal findings, and the cranial nerves 2 through 12 are grossly intact. LABORATORY DATA: White blood cell count 3.6 with normal differential, hemoglobin 7.7, MCV 113, and platelet count 52,000. Chemistry showed normal electrolytes except for a carbon dioxide of 18. The creatinine is 0.95. Total bilirubin 0.8, AST 109, ALT 44, alkaline phosphatase 259. Globulin 2.0 and albumin 3.0. IMAGING STUDIES: See history of present illness. IMPRESSION: 1. Multiple focal defects within the liver, typical for metastatic disease, primary unclear. 2. Anemia and thrombocytopenia. 3. Marginal mental status with no focal neurological findings. RECOMMENDATIONS: My recommendation at this point would be to give vitamin K as the INR is 1.5, borderline, and re-assess the PT/INR. We will repeat a CBC and INR thereafter on Tuesday. If platelet count remains low, we will proceed with platelet transfusion in an effort to achieve an acceptable platelet count for liver biopsy. We will coordinate this, of course, with Interventional Radiology. The anemia and thrombocytopenia may very well be related to alcohol and/or liver disease. Thanks very much for allowing me to provide my recommendations. We will follow with you while hospitalized. Job ID: [id number]
[2019-09-15] MEDS: Zolpidem Tartrate 5 MG TAB PO PRN (20:27)
[2019-09-16 04:51] LABS: INR-International Normal Ratio 2.6; Prothrombin Time 27.6 sec (12.0-14.7)
[2019-09-16 04:52] LABS: PTT 61.8 sec (22.9-36.1)
[2019-09-16 05:27] LABS: Band 9 % (5-11); Eosinophils 2 % (0-10); Hemoglobin 7.9 g/dL (12.0-16.0); Lymphocytes 18 % (21-51); MDiff Complete? YES; Macrocytosis SLIGHT = 6-15 cells (100X) (0-5/hpf); Mean Corpuscular Hemoglobin 37.6 pg (27.0-31.0); Mean Platelet Volume 9.2 fL (7.4-10.4); Monocytes 12 % (0-10); Neutrophil 59 % (42-75); Platelet Count 46 thou/uL (130-400); Platelet Morphology Comment Appears Decreased; Polychromasia SLIGHT = 2-3 cells (100X) (0-2/hpf); RBC Distribution Width 15.5 % (11.5-14.5); Red Blood Cell (RBC) Count 2.09 mill/uL (4.20-5.40); White Blood Cell (WBC) Count 4.7 thou/uL (4.8-10.8)
[2019-09-16] MEDS: HYDROcodone/Acetaminophen 5/325 mg Tablet PO PRN (08:39)
[2019-09-16] MEDS: Thiamine 100 MG TAB PO SCH (08:41)
[2019-09-16] MEDS: Multivit, Therapeutic 1 TAB PO SCH (08:41)
[2019-09-16] MEDS: Folic Acid 1 MG TAB PO SCH (08:42)
[2019-09-16] MEDS: Cyanocobalamin (Vitamin B-12) 1,000 MCG TAB PO SCH (08:42)
[2019-09-16] MEDS ORDERED: Metoprolol Tartrate 25 MG TAB PO SCH (09:00)
[2019-09-16] MEDS: Magnesium Chloride 64 MG TAB PO SCH (09:02)
[2019-09-16] MEDS: cefTRIAXone\\ROCEPHIN 2 GM in Sodium Chloride 0.9% 100 ML IVPB SCH (09:02)
[2019-09-16] MEDS: Morphine 2 MG/ML SYRINGE SLOW IVP PRN ×3 (12:43→21:34)
--- NOTE | 2019-09-16 13:15 | PDOC.HOSPP ---
- Subjective Encounter Date: 09/16/19 Encounter Time: 07:00 Subjective: No overnight events. this morning, complains of persistent periumbilical pain. Per verbal communication, oncology prefers hospice care route rather than biopsy. pending palliative team evaluation - Objective Vital Signs & Weight: Vital Signs (12 hours) Temp Pulse Resp BP Pulse Ox 09/16/19 07:04 98.1 F 108 H 20 121/58 L 92 L 09/16/19 03:48 98.1 F 106 H 16 127/50 L 92 L Weight Weight 170 lb Most Recent Monitor Data Heart Rate from ECG 118 NIBP 102/70 NIBP BP-Mean 80 Respiration from ECG 12 SpO2 96 I&O: 09/15/19 09/16/19 09/17/19 06:59 06:59 06:59 Intake Total 980 700 Output Total 350 200 Balance 630 500 Result Diagrams: 09/16/19 04:27 09/13/19 04:26 Hospitalist ROS - Review of Systems Constitutional: denies: fever, chills, sweats Respiratory: denies: cough, dry, shortness of breath Cardiovascular: denies: chest pain, palpitations, orthopnea, paroxysmal noc. dyspnea Gastrointestinal: reports: abdominal pain, constipation. denies: nausea, vomiting, diarrhea, melena, hematochezia - Medication Medications: Active Medications Generic Name Dose Route Start Last Admin Trade Name Freq PRN Reason Stop Dose Admin Hydrocodone Bitart/Acetaminophen 1 tab 09/11/19 17:01 09/16/19 08:39 [place] 5/325 PO 1 tab Q4H PRN Administration Moderate Pain (4-6) Hydrocodone Bitart/Acetaminophen 2 tab 09/11/19 17:01 09/15/19 20:26 [place] 5/325 PO 2 tab Q4H PRN Administration Severe Pain (7-10) Alprazolam 0.25 mg 09/11/19 18:39 09/11/19 19:38 Xanax PO 0.25 mg BIDPRN PRN Administration Anxiety Folic Acid 1 mg 09/12/19 09:00 09/16/19 08:42 Folvite PO 1 mg DAILY JOHNNA Administration Ceftriaxone Sodium 2 gm/ 100 mls @ 200 mls/hr 09/12/19 10:00 09/16/19 09:02 Sodium Chloride IVPB 100 mls 1000 JOHNNA Administration Morphine Sulfate 2 mg 09/16/19 12:22 09/16/19 12:43 Morphine SLOW IVP 2 mg Q4H PRN Administration [place] Pain Multivitamins 1 tab 09/12/19 09:00 09/16/19 08:41 Theragran PO 1 tab DAILY JOHNNA Administration Ondansetron HCl 4 mg 09/11/19 17:01 09/11/19 20:08 Zofran IVP 4 mg Q6H PRN Administration Nausea/Vomiting Pantoprazole Sodium 40 mg 09/13/19 09:00 09/16/19 08:42 Protonix PO 40 mg DAILY JOHNNA Administration Senna/Docusate Sodium 2 tab 09/12/19 14:16 09/16/19 04:28 Senokot S PO 2 tab BID PRN Administration Constipation Thiamine HCl 100 mg 09/12/19 09:00 09/16/19 08:41 Thiamine PO 100 mg DAILY JOHNNA Administration Zolpidem Tartrate 5 mg 09/12/19 14:16 09/15/19 20:27 Ambien PO 5 mg HSPRN PRN Administration Insomnia - Exam General Appearance: awake alert General - other findings: mild distress due to abdominal pain ENT: normocephalic atraumatic Neck: no JVD Heart: no murmur, no gallops Heart - other findings: regular rhythm, tahcycardic Respiratory: CTAB, no wheezes, no rales Gastrointestinal: soft, non-distended Gastrointestinal - other findings: moderate periumbilical tenderness, liver palpated Extremities: no edema Psychiatric: normal affect, normal behavior, A&O x 3 Hosp A/P - Plan #breast cancer history #multiple lung and liver masses -per oncology, hospice route at this point; will abort biopsy; pending palliative team evaluation -morphine started for better pain control -started bowel regimen conisdering no bowel movmeent since Tuesday #UTI -on ceftriaxone D5 Full code GI ppx:
[2019-09-16] MEDS ORDERED: Polyethylene Glycol 3350 17 GM Packet PO SCH (13:30)
[2019-09-16] MEDS: Sodium Chloride 0.9% 1,000 ML IV SCH (13:52)
[2019-09-16] MEDS: Metoprolol Tartrate 25 MG TAB PO SCH (20:32)
[2019-09-16] MEDS: Zolpidem Tartrate 5 MG TAB PO PRN (20:34)
[2019-09-16] MEDS: Senokot S 8.6-50 MG TAB PO SCH (20:35)
[2019-09-17] MEDS: Sodium Chloride 0.9% 1,000 ML IV SCH (01:54)
[2019-09-17] MEDS: Morphine 2 MG/ML SYRINGE SLOW IVP PRN (02:00)
[2019-09-17] MEDS ORDERED: Morphine 2 MG/ML SYRINGE SLOW IVP PRN (05:33)
[2019-09-17] MEDS: Morphine 4 MG/ML VIAL SLOW IVP PRN ×3 (05:53→14:02)
[2019-09-17 06:33] LABS: Anion Gap 16 mmol/L (10-20); BUN (Urea Nitrogen) 23 mg/dL (9.8-20.1); Calc. Creatinine Clearance 65 mL/min (70-130); Carbon Dioxide 13 mmol/L (23-31); Chloride 115 mmol/L (98-107); Estimated GFR-MDRD 53; Glucose 78 mg/dL (80-115); Magnesium 1.7 mg/dL (1.6-2.6); Potassium 3.7 mmol/L (3.5-5.1); Sodium 140 mmol/L (136-145)
[2019-09-17 07:57] VITALS: TEMP 98.8
[2019-09-17] MEDS: Folic Acid 1 MG TAB PO SCH (08:57)
[2019-09-17] MEDS: Multivit, Therapeutic 1 TAB PO SCH (08:57)
[2019-09-17] MEDS: Metoprolol Tartrate 25 MG TAB PO SCH (08:57)
[2019-09-17] MEDS: Thiamine 100 MG TAB PO SCH (08:58)
[2019-09-17] MEDS: Senokot S 8.6-50 MG TAB PO SCH (08:58)
[2019-09-17 10:23] VITALS: BP 98/55
--- NOTE | 2019-09-17 10:47 | PDOC.FMACP ---
Advance Care Planning - Problem (1) Liver mass Status: Acute Code(s): R16.0 - HEPATOMEGALY, NOT ELSEWHERE CLASSIFIED (2) Metastatic disease Status: Acute Code(s): C79.9 - SECONDARY MALIGNANT NEOPLASM OF UNSPECIFIED SITE (3) Acute anemia Status: Acute Code(s): D64.9 - ANEMIA, UNSPECIFIED (4) Chronic alcoholism Status: Acute Code(s): F10.20 - ALCOHOL DEPENDENCE, UNCOMPLICATED (5) Palliative care encounter Status: Acute Code(s): Z51.5 - ENCOUNTER FOR PALLIATIVE CARE - Note Participants: family, surrogate decision-maker, palliative care Summary: Palliative care introduced Advanced Care Planning to patient as Mrs Mac is not decisional and he is spouse/surrogate decision maker, allowed opportunity to decline. The diagnosis, prognosis and goals of care were discussed. Appropriate forms and documentation to accomplish the goals of care were discussed. All questions were answered. Transitioned to no resuscitation/ [facility] as believes that is is not what she would desire for care and is electing to transition to [facility]. The Palliative Care Team will be engaged to assist with completion of any outstanding forms that are needed, Shruti Blas to follow up with Fátima THACKER completed DN[facility]. Time Spent (mins): 30
--- NOTE | 2019-09-17 10:48 | PDOC.PALCO ---
Palliative Care Consult - Consult Details Requesting Physician: Dr Iyer, confirmed with Dr Mancera Reason for Consult: advance directives assistance, assistance with communication prognosis/disease, complex decision-making Family Members Present: Patient - Pertinent HPI 64 year old female who resides in a private home setting, usually independent in ADL's but reports a decline in functional status and increase in weakness over the past two weeks. Patient travels between the [facility] and their home, he was out of town and she experienced a fall from which she could not get up secondary to weakness. She slept on the floor, in the morning she remained unable to assist herself in getting off the floor and contacted family who called EMS. Emergency room evaluation identified tachycardia, hypotension, and diagnosed initially with sepsis. Liver mass was identified and suspicious for metastatic cancer, also with active alcoholism as per . She was admitted for hopes of liver biopsy, however with platelet count of 49,000 it was canceled. Continued decline during course of stay, poor chance of meaningful recovery. Difficult to manage pain as patient also hypotensive. - Pertinent PMH HTN, Alcoholism - Social History Smoking: no tobacco exposure Alcohol Use: heavy, daily Drug Use History: none Living Situation: independent, - Medications MAR Reviewed: Yes - Allergies Allergies/Adverse Reactions: Allergies Allergy/AdvReac Type Severity Reaction Status Date / Time No Known Allergies Allergy Verified 08/09/19 19:24 - Subjective Mildly labored respirations, non verbal, unable to follow request during assessment. at bedside - ROS Non Response: due to mental status - Objective Vital Signs: Vital Signs - Most Recent Temp Pulse Resp BP Pulse Ox 98.8 F 99 18 98/55 L 92 L 09/17/19 07:45 09/17/19 07:45 09/17/19 07:45 09/17/19 10:23 09/17/19 08:58 Palliative Performance Scale: 20 - Physical Exam Constitutional: encephalitic, ill appearing HEENT: EOMI, moist MMs Respiratory: no wheezing, diminished lung sound Deviation from normal: tachypnea intermittantly Cardiovascular: RRR Gastrointestinal: soft, incontinent Genitourinary: incontinent Musculoskeletal: no clubbing, pulses present Deviation from normal: mildly cyanotic nail beds to hands Neurology: moves all 4 limbs, no focal deficits Skin: bruising Deviation from normal: encephalopathic - Problem List (1) Liver mass Code(s): R16.0 - HEPATOMEGALY, NOT ELSEWHERE CLASSIFIED Current Visit: Yes Status: Acute (2) Metastatic disease Code(s): C79.9 - SECONDARY MALIGNANT NEOPLASM OF UNSPECIFIED SITE Current Visit: Yes Status: Acute (3) Acute anemia Code(s): D64.9 - ANEMIA, UNSPECIFIED Current Visit: No Status: Acute (4) Chronic alcoholism Code(s): F10.20 - ALCOHOL DEPENDENCE, UNCOMPLICATED Current Visit: No Status : Acute (5) Palliative care encounter Code(s): Z51.5 - ENCOUNTER FOR PALLIATIVE CARE Current Visit: Yes Status: Acute - Plan/Recommendations Plan: Short life review with . He states they have been together 35 years. They have one daughter who they are estranged from States his has been a heavy drinker for "a long time'. He states she is primarily home bound. Mr Mac states that his "did not follow up on things" "She never filled out her social security information or renewed her drivers license" He is concerned related to insurance coverage, will communicate with Case Management. Ms Mac is not able to make decisions today due to altered mental status. confirmed she would not want to "Live like this" and wants her comfortable. Concerned in ability to care for her in home setting. Transition to [facility] Hospice Evaluation placed with CM for inpatient consideration Spiritual care consult for additional emotional and spiritual support for patient and Addition of Ativan IVP for restlessness Communicated with Dr Mancera and Dr Iyer [50] minutes spent on this encounter with >50% of the time in counseling and coordination of care. Thank you for this very appropriate consult.
[2019-09-17] MEDS ORDERED: Lorazepam 2 MG/ML VIAL SLOW IVP PRN (10:50)
--- NOTE | 2019-09-17 11:26 | PDOC.HOSPP ---
- Subjective Encounter Date: 09/17/19 Encounter Time: 11:00 Subjective: overnight, persistent pain and moaning. this morning, borderline hypotensive, decided to transition to DNAR and hospice care. Pending hospice evaluation - Objective Vital Signs & Weight: Vital Signs (12 hours) Temp Pulse Resp BP Pulse Ox 09/17/19 10:23 98/55 L 09/17/19 08:58 92 L 09/17/19 08:00 92 L 09/17/19 07:45 98.8 F 99 18 95/54 L 90 L 09/17/19 00:29 92 L Weight Weight 170 lb Most Recent Monitor Data Heart Rate from ECG 118 NIBP 102/70 NIBP BP-Mean 80 Respiration from ECG 12 SpO2 96 I&O: 09/16/19 09/17/19 09/18/19 06:59 06:59 06:59 Intake Total 700 495 Output Total 200 200 Balance 500 295 Result Diagrams: 09/16/19 04:27 09/17/19 05:51 Hospitalist ROS - Review of Systems ROS unobtainable: due to mental status (Drowsy after receiving morphine) - Medication Medications: Active Medications Generic Name Dose Route Start Last Admin Trade Name Freq PRN Reason Stop Dose Admin Alprazolam 0.25 mg 09/11/19 18:39 09/11/19 19:38 Xanax PO 0.25 mg BIDPRN PRN Administration Anxiety Folic Acid 1 mg 09/12/19 09:00 09/17/19 08:57 Folvite PO Not Given DAILY JOHNNA Sodium Chloride 1,000 mls @ 75 mls/hr 09/16/19 13:30 09/17/19 01:54 Normal Saline 0.9% IV 1,000 mls .[id number] JOHNNA Administration Metoprolol Tartrate 12.5 mg 09/16/19 21:00 09/17/19 08:57 Lopressor PO Not Given BID JOHNNA Morphine Sulfate 4 mg 09/17/19 05:34 09/17/19 10:17 Morphine SLOW IVP 4 mg Q4H PRN Administration PA[place] 5-10 Multivitamins 1 tab 09/12/19 09:00 09/17/19 08:57 Theragran PO Not Given DAILY JOHNNA Ondansetron HCl 4 mg 09/11/19 17:01 09/11/19 20:08 Zofran IVP 4 mg Q6H PRN Administration Nausea/Vomiting Pantoprazole Sodium 40 mg 09/13/19 09:00 09/17/19 08:57 Protonix PO Not Given DAILY [facility] Senna/Docusate Sodium 2 tab 09/16/19 21:00 09/17/19 08:58 Senokot S PO Not Given BID JOHNNA Thiamine HCl 100 mg 09/12/19 09:00 09/17/19 08:58 Thiamine PO Not Given DAILY JOHNNA Zolpidem Tartrate 5 mg 09/12/19 14:16 09/16/19 20:34 Ambien PO 5 mg HSPRN PRN Administration Insomnia - Exam General Appearance: NAD General - other findings: drowsy, arousable Eye: PERRL Neck: no JVD Heart: RRR, no murmur, no gallops Respiratory: CTAB, no wheezes, no rales, no ronchi Gastrointestinal: non-distended Gastrointestinal - other findings: reduced bowel sounds; tender mostly periumbilic Extremities: no edema Hosp A/P - Plan #breast cancer history #multiple lung and liver masses -biopsy aborted per oncology; pending hospice evaluation per (decision maker) request -morphine started for better pain control -started bowel regimen conisdering no bowel movmeent since Tuesday #UTI -completed treatment. stop abx Full code GI ppx: no ix DVT ppx lovenox
--- NOTE | 2019-09-18 13:37 | DIS ---
DATE OF ADMISSION: 09/11/2019 DATE OF DISCHARGE: 09/17/2019 HOSPITAL COURSE: Ms. Mac is a 64-year-old female with a medical history of breast cancer, hypertension, and gout, who presented for generalized weakness and a fall. The patient also reported having a fever 2 weeks prior to presentation that was not confirmed. As part of the infectious workup, she was found to have UTI which was treated with antibiotics. Imaging showed multiple masses in the lungs and the liver. Oncology was consulted and initially the patient was pending a liver biopsy; however, the patient remained hypotensive and in severe intractable pain. The palliative care team was consulted, and after discussion with the , it was decided to transition the patient to hospice care. On the day of discharge, the patient was sleeping comfortably. She was [facility] to [facility] for further symptomatic management. PHYSICAL EXAMINATION: VITAL SIGNS: Blood pressure 98/55, temperature 98.8, pulse 99, respiratory rate 18, oxygen saturation 92% on 2 L nasal cannula. GENERAL: Sleeping, in no apparent distress. CARDIAC: Regular rhythm. No murmurs or gallops. Tachycardic. LUNGS: Clear to auscultation bilaterally. No wheezing, rales or rhonchi. ABDOMEN: Hepatomegaly appreciated. Severe periumbilical tenderness with guarding. MEDICATION LIST: New medications; 1. Tylenol. 2. Artificial Tears. 3. Guaifenesin. 4. Lorazepam. 5. Metoprolol 12.5 mg b.i.d. 6. Morphine. 7. MiraLAX. 8. Senna/docusate. Discontinued medications; 1. Vitamin B12. 2. Folic acid. 3. Multivitamin. 4. Thiamine. 5. Magnesium. 6. Tramadol. 7. Potassium. 8. Metoprolol tartrate 40 mg b.i.d. Modified medications: No modified medications. Job ID: [id number]
== END 2019-09-17 16:45 | disposition hospice, inpatient (51) | DRG 871 ==
LOC: ERS 07:45 → ERHOLD 12:17 → IMCU/EMU 16:46 → ONC 09-12 19:36
PROVIDERS: ADMIT Emergency Medicine; ATTEND Internal Medicine
PROC: 8E0ZXY6 Isolation (ICD-10-PCS; principal; 2019-09-11)
DX: A41.51 Sepsis due to Escherichia coli [E. coli] (principal); I21.A1 Myocardial infarction type 2; R65.21 Severe sepsis with septic shock; N30.00 Acute cystitis without hematuria; E87.2 Acidosis; D61.818 Other pancytopenia; D68.9 Coagulation defect, unspecified; Z20.828 Contact with and (suspected) exposure to other viral communicable diseases; Z51.5 Encounter for palliative care; Z66 Do not resuscitate; I10 Essential (primary) hypertension; M10.9 Gout, unspecified; F10.20 Alcohol dependence, uncomplicated; B96.20 Unspecified Escherichia coli [E. coli] as the cause of diseases classified elsewhere; D53.9 Nutritional anemia, unspecified; F32.9 Major depressive disorder, single episode, unspecified; R16.0 Hepatomegaly, not elsewhere classified; R91.8 Other nonspecific abnormal finding of lung field; Z53.8 Procedure and treatment not carried out for other reasons; Z85.3 Personal history of malignant neoplasm of breast; Z79.899 Other long term (current) drug therapy; Z87.891 Personal history of nicotine dependence
CPT/HCPCS: 36415; 36416; 51701; 71045; 71260; 72170; 74177; 78306; 80048; 80053; 81003; 81015; 82105; 82550; 82553; 82607; 82746; 83605; 83690; 83735; 84484; 85025; 85610; 85730; 86850; 86900; 86901; 87040; 87077; 87086; 87186; 87635; 93005; 96361; 96365; 96367; 96375; 96376; A9503; J0696; J2060; J2270; J2405; J3010; J3370; J3430; J3490; J7030; J7050; Q9967; U0003